=== PATIENT | male | born 1970 | race Hispanic/Latino ===

== ENCOUNTER 2018-11-06 06:38 | Inpatient (IN) | payer MEDICAID, OTHER ==
[2018-11-06 06:38] VITALS: BMI 34.4
[2018-11-06] MEDS ORDERED: Sodium Chloride 0.9% 1,000 ML IV STA (08:32)
[2018-11-06] MEDS ORDERED: Vancomycin 1 GM 1 GM/250 ML BAG IV STA (08:36)
[2018-11-06] MEDS ORDERED: Cefepime 1 GM in Sodium Chloride 0.9% 50 ML IVPB ONE (08:39)
[2018-11-06] MEDS ORDERED: Sodium Chloride 0.9% 1,000 ML ONE (09:01)
[2018-11-06] MEDS ORDERED: Vancomycin 1 GM 1 GM/250 ML BAG IVPB ONE (09:01)
--- NOTE | 2018-11-06 09:10 | C.PDOC ---
History Of Present Illness 48 y/o male,w/PMhx of endocarditis, presents to the ER complaining of bilateral leg pain and swelling. Patient states that he was recently diagnosed with endocarditis and he was admitted in [facility] [place] 6 [place]. At the time, patient had PICC line and he was treated with abx.After he was discharged, he went back to work. However, he notes that he continues to have pain so he decided to come to the ER. Of note, patient uses IV heroin and his last use was in the morning today. Denies having fever,chills,CP,SOB, nausea, and vomiting. Time Seen by Provider: 11/06/18 07:24 Chief Complaint (Nursing): Lower Extremity Problem/Injury History Per: Patient History/Exam Limitations: no limitations Onset/Duration Of Symptoms: Days Current Symptoms Are (Timing): Still Present Severity: Moderate Past Medical History Reviewed: Historical Data, Nursing Documentation, Vital Signs Vital Signs: Last Vital Signs Temp 99.7 F H 11/06/18 06:49 Pulse 100 H 11/06/18 06:49 Resp 20 11/06/18 06:49 BP 148/65 11/06/18 06:49 Pulse Ox 97 11/06/18 06:49 - Medical History PMH: No Chronic Diseases Other Surgeries: Hx of surgeries - [facility] Procedures INJECT/INFUSE NEC (11/14/14) Family History: States: No Known Family Hx - Social History Hx Tobacco Use: Yes Hx Alcohol Use: No Hx Substance Use: Yes (HEROIN, COCAINE : QUIT) - Immunization History Hx Tetanus Toxoid Vaccination: No Hx Influenza Vaccination: No Hx Pneumococcal Vaccination: No Review Of Systems Except As Marked, All Systems Reviewed And Found Negative. Constitutional: Negative for: Fever, Chills Cardiovascular: Negative for: Chest Pain Respiratory: Negative for: Shortness of Breath Gastrointestinal: Negative for: Nausea, Vomiting Musculoskeletal: Positive for: Leg Pain (bilateral leg pain and swelling) Neurological: Negative for: Weakness, Numbness Physical Exam - Physical Exam Appears: Non-toxic, No Acute Distress Skin: Normal Color, Warm, Dry Head: Atraumatic, Normacephalic Eye(s): bilateral: Normal Inspection Nose: Normal Oral Mucosa: Moist Neck: Supple Chest: Symmetrical Cardiovascular: Rhythm Regular Respiratory: Normal Breath Sounds, No Rales, No Rhonchi, No Wheezing Gastrointestinal/Abdominal: Soft, No Tenderness, No Guarding, No Rebound, Hernia (reducible right inguinal hernia) Extremity: Normal ROM, Other (bilateral lower extremity pitting edema) Neurological/Psych: Oriented x3, Normal Speech ED Course And Treatment - Laboratory Results Result Diagrams: 11/06/18 09:12 11/06/18 09:12 O2 Sat by Pulse Oximetry: 97 (RA) Pulse Ox Interpretation: Normal - Other Rad CXR X-Ray: Viewed By Me, Read By Radiologist Interpretation: Date of service: 11/06/2018. HISTORY: LE edema. COMPARISON: None available. FINDINGS: LUNGS: Suspect minor bibasilar atelectasis and or scarring changes. PLEURA: No significant pleural effusion identified, no pneumothorax apparent. CARDIOVASCULAR: No aortic atherosclerotic calcification present. Normal cardiac size. No pulmonary vascular congestion. OSSEOUS STRUCTURES: No significant abnormalities. VISUALIZED UPPER ABDOMEN: Normal. OTHER FINDINGS: None. IMPRESSION: Minor bibasilar atelectasis and or scarring changes. Progress Note: Labs, UA, and CXR ordered.Patient treated with Maxipime IV, Vancomcyin IV, and IV Fluids. Case was d/w who knows patient by treating him in [facility] [place]. She accepted patient to her service for an admission. Disposition - Disposition Disposition: HOSPITALIZED Disposition Time: 12:29 Condition: FAIR - Clinical Impression Clinical Impression: Endocarditis, ARF (acute renal failure), Drug abuse and dependence, Extremity edema - PA / [employer] / Resident Statement MD/DO has reviewed & agrees with the documentation as recorded. - Scribe Statement The provider has reviewed the documentation as recorded by the Gracy Cleveland Provider Attestation All medical record entries made by the Scribe were at my direction and personally dictated by me. I have reviewed the chart and agree that the record accurately reflects my personal performance of the history, physical exam, me dical decision making, and the department course for this patient. I have also personally directed, reviewed, and agree with the discharge instructions and disposition. Decision To Admit - Pt Status Changed To: Hospital Disposition Of: Inpatient - Admit Certification Admit to Inpatient:: After my assessment, the patient will require hospitalization for at least two midnights. This is because of the severity of symptoms shown, intensity of services needed, and/or the medical risk in this patient being treated as an outpatient. - InPatient: Physician Admission Certification: I certify that this patient requires 2 or more midnights of care for the following reason:: Patient will IVDA Endocarditis will neeed IV antibiotics for longer than 2 days. - . Bed Request Type: Regular Admitting Physician: Dorothy Ramos Patient Diagnosis: Endocarditis, ARF (acute renal failure), Drug abuse and dependence, Extremity edema
--- NOTE | 2018-11-06 09:14 | RAD ---
Date of service: 11/06/2018 HISTORY: LE edema COMPARISON: None available. FINDINGS: LUNGS: Suspect minor bibasilar atelectasis and or scarring changes. PLEURA: No significant pleural effusion identified, no pneumothorax apparent. CARDIOVASCULAR: No aortic atherosclerotic calcification present. Normal cardiac size. No pulmonary vascular congestion. OSSEOUS STRUCTURES: No significant abnormalities. VISUALIZED UPPER ABDOMEN: Normal. OTHER FINDINGS: None. IMPRESSION: Minor bibasilar atelectasis and or scarring changes.
[2018-11-06 09:26] LABS: BASO # 0.1 K/uL (0.0-0.2); BASO % 0.9 % (0.0-2.0); EOS % 0.4 % (0.0-4.0); LYMPH % 21.8 % (20.0-40.0); MEAN CELL VOLUME 82.4 fL (80.0-94.0); MEAN CORPUSCULAR HEMOGLOBIN 27.7 pg (27.0-31.0); MEAN CORPUSCULAR HGB CONC 33.6 g/dL (33.0-37.0); MEAN PLATELET VOLUME 7.4 fL (7.2-11.7); MONO # 0.5 K/uL (0.0-0.8); MONO % 5.4 % (0.0-10.0); NEUT # 6.5 K/uL (1.8-7.0); NEUT % 71.5 % (50.0-75.0); NRBC % 0.1 % (0.0-2.0); RBC 3.1 Mil/uL (4.40-5.90); RED CELL DISTRIBUTION WIDTH 13.9 % (11.5-14.5); WHITE BLOOD COUNT 9.1 K/uL (4.8-10.8)
[2018-11-06 09:29] LABS: HEMOGLOBIN 8.6 g/dL (12.0-18.0)
[2018-11-06] MEDS ORDERED: Cefepime 1 GM in Sodium Chloride 0.9% 100 ML IVPB ONE (09:30)
[2018-11-06 09:33] LABS: INR 1.4
[2018-11-06 09:35] LABS: SQUAMOUS EPITHIAL 5 /hpf (0-5); URINE BACTERIA OCC (<OCC); URINE BILIRUBIN 1+ (NEGATIVE); URINE BLOOD 2+ (NEGATIVE); URINE CLARITY Hazy (Clear); URINE COLOR Amber (YELLOW); URINE GLUCOSE (UA) NORMAL (Normal); URINE LEUKOCYTE ESTERASE NEG Leu/uL (Negative); URINE PROTEIN 2+ mg/dL (NEGATIVE); WBC CLUMPS FEW /hpf
[2018-11-06 09:37] LABS: ALB/GLOB RATIO 0.9 (1.0-2.1); ALBUMIN 3.2 g/dL (3.5-5.0); ALT/SGPT 42 U/L (21-72); AST/SGOT 82 U/L (17-59); BLOOD UREA NITROGEN 22 mg/dL (9-20); CALCIUM 9.6 mg/dl (8.6-10.4); GFR NON-AFRICAN AMERICAN 27
[2018-11-06 09:45] LABS: B-TYPE NATRIURETIC PEPTIDE 591 pg/mL (0-450)
[2018-11-06 09:46] LABS: BARBITURATES, UR NEGATIVE (NEGATIVE); PHENCYCLIDINE, UR NEGATIVE (NEGATIVE)
[2018-11-06 10:05] LABS: BENZODIAZEPINES, UR POSITIVE (NEGATIVE); OPIATES, UR POSITIVE (NEGATIVE)
[2018-11-06] MEDS: Magnesium Sulfate 1 gm in D5W 1 GM/100 ML BAG IVPB SCH ×4 (15:15→19:59)
[2018-11-06] MEDS: Sodium Chloride 0.9% 1,000 ML IV SCH (15:30)
[2018-11-06] MEDS: Cefepime IV 1 gm in Dextrose 1 GM/50 ML BAG IVPB SCH (23:30)
[2018-11-07] MEDS: Sodium Chloride 0.9% 1,000 ML IV SCH ×4 (02:05→22:31)
[2018-11-07 07:33] LABS: BASO # 0.1 K/uL (0.0-0.2); BASO % 0.7 % (0.0-2.0); EOS # 0.1 K/uL (0.0-0.7); EOS % 1.3 % (0.0-4.0); HEMOGLOBIN 8.5 g/dL (12.0-18.0); LYMPH # 1.6 K/uL (1.0-4.3); LYMPH % 24.6 % (20.0-40.0); MEAN CELL VOLUME 81.7 fL (80.0-94.0); MEAN CORPUSCULAR HEMOGLOBIN 28.4 pg (27.0-31.0); MEAN CORPUSCULAR HGB CONC 34.7 g/dL (33.0-37.0); MEAN PLATELET VOLUME 7.6 fL (7.2-11.7); MONO # 0.3 K/uL (0.0-0.8); MONO % 4.6 % (0.0-10.0); NEUT # 4.6 K/uL (1.8-7.0); NEUT % 68.8 % (50.0-75.0); RBC 2.98 Mil/uL (4.40-5.90); RED CELL DISTRIBUTION WIDTH 13.9 % (11.5-14.5); WHITE BLOOD COUNT 6.7 K/uL (4.8-10.8)
[2018-11-07 07:44] LABS: ALB/GLOB RATIO 0.8 (1.0-2.1); ALBUMIN 2.7 g/dL (3.5-5.0); ALT/SGPT 41 U/L (21-72); AST/SGOT 83 U/L (17-59); BLOOD UREA NITROGEN 24 mg/dL (9-20); CALCIUM 8.8 mg/dl (8.6-10.4); GFR NON-AFRICAN AMERICAN 54
[2018-11-07 08:12] LABS: HEPATITIS B SURFACE AG Negative (NEGATIVE)
[2018-11-07 08:17] LABS: HEPATITIS A IGM NEGATIVE (NEGATIVE); HEPATITIS B CORE AB NEGATIVE (NEGATIVE)
[2018-11-07 09:55] LABS: HEPATITIS C ANTIBODY REACTIVE (NEGATIVE)
--- NOTE | 2018-11-07 10:49 | CP.PCM.HP ---
History of Present Illness - History of Present Illness History of Present Illness: pt came in for fever pain body has endocarditis previous admision sign himself out using drugs heroin iv and snuff Present on Admission - Present on Admission Any Indicators Present on Admission: No Review of Systems - Review of Systems Systems not reviewed;Unavailable: Acuity of Condition - Constitutional Constitutional: Fever - EENT Eyes: As Per HPI Ears: As Per HPI Nose/Mouth/Throat: As Per HPI - Cardiovascular Cardiovascular: Dyspnea, Radiating Pain - Gastrointestinal Gastrointestinal: As Per HPI - Genitourinary Genitourinary: As Per HPI - Reproductive: Male Reproductive:Male: As Per HPI - Musculoskeletal Musculoskeletal: As Per HPI Additional comments: leg pain - Integumentary Integumentary: As Per HPI - Neurological Neurological: As Per HPI - Psychiatric Psychiatric: As Per HPI - Endocrine Endocrine: As Per HPI - Hematologic/Lymphatic Hematologic: As Per HPI Additional comments: has aneamia Past Patient History - Tetanus Immunizations Tetanus Immunization: Unknown - Past Medical History & Family History Past Medical History?: Yes - Past Social History Smoking Status: Heavy Smoker > 10 Cigarettes Daily - CARDIAC Other/Comment: Endocarditis - PULMONARY Hx Respiratory Disorders: No - NEUROLOGICAL Hx Neurological Disorder: No - HEENT Hx HEENT Problems: No - RENAL Hx Chronic Kidney Disease: No - ENDOCRINE/METABOLIC Hx Endocrine Disorders: No - HEMATOLOGICAL/ONCOLOGICAL Hx Blood Disorders: No - INTEGUMENTARY Hx Dermatological Problems: No - MUSCULOSKELETAL/RHEUMATOLOGICAL Hx Musculoskeletal Disorders: No Hx Falls: No - GASTROINTESTINAL Hx Gastrointestinal Disorders: No - GENITOURINARY/GYNECOLOGICAL Hx Genitourinary Disorders: No - PSYCHIATRIC Hx Substance Use: Yes (HEROIN, COCAINE : QUIT) - SURGICAL HISTORY Hx Surgeries: Yes Hx Orthopedic Surgery: Yes (R KNEE) - ANESTHESIA Hx Anesthesia: Yes Hx Anesthesia Reactions: No Meds Allergies/Adverse Reactions: Allergies Allergy/AdvReac Type Severity Reaction Status Date / Time No Known Allergies Allergy Verified 11/14/14 15:03 Physical Exam - Constitutional Appears: In Acute Distress - Head Exam Head Exam: ATRAUMATIC - Eye Exam Eye Exam: Normal appearance Pupil Exam: NORMAL ACCOMODATION - ENT Exam ENT Exam: Mucous Membranes Moist - Neck Exam Neck exam: Positive for: Full Rom - Respiratory Exam Respiratory Exam: Decreased Breath Sounds - Cardiovascular Exam Cardiovascular Exam: REGULAR RHYTHM - GI/Abdominal Exam GI & Abdominal Exam: Normal Bowel Sounds - Extremities Exam Extremities exam: Positive for: normal inspection - Back Exam Back exam: NORMAL INSPECTION - Neurological Exam Neurological exam: Alert, Normal Gait, Oriented x3 - Psychiatric Exam Psychiatric exam: Normal Affect - Skin Skin Exam: Pallor Results - Vital Signs Recent Vital Signs: Last Vital Signs Temp 99.5 F 11/07/18 07:00 Pulse 81 11/07/18 07:00 Resp 20 11/07/18 07:00 BP 161/94 H 11/07/18 07:00 Pulse Ox 97 11/07/18 07:00 - Labs Result Diagrams: 11/07/18 06:57 11/07/18 06:57 Labs: Laboratory Results - last 24 hr 11/07/18 11/07/18 11/07/18 06:57 06:57 06:57 WBC 6.7 RBC 2.98 L Hgb 8.5 L Hct 24.4 L MCV 81.7 MCH 28.4 MCHC 34.7 RDW 13.9 Plt Count 274 MPV 7.6 Neut % (Auto) 68.8 Lymph % (Auto) 24.6 [place] % (Auto) 4.6 Eos % (Auto) 1.3 Baso % (Auto) 0.7 Neut # (Auto) 4.6 Lymph # (Auto) 1.6 [place] # (Auto) 0.3 Eos # (Auto) 0.1 Baso # (Auto) 0.1 Sodium 137 Potassium 3.7 Chloride 106 Carbon Dioxide 24 Anion Gap 10 BUN 24 H Creatinine 1.4 Est GFR ( Amer) > 60 Est GFR (Non-Af Amer) 54 Random Glucose 95 Calcium 8.8 Magnesium 1.6 Total Bilirubin 0.3 AST 83 H ALT 41 Alkaline Phosphatase 85 Total Protein 6.1 L Albumin 2.7 L Globulin 3.4 Albumin/Globulin Ratio 0.8 L Hepatitis A IgM Ab Negative Hep Bs Antigen Negative Hep B Core IgM Ab Negative Hepatitis C Antibody Reactive HIV 1&2 Antibody Screen 11/07/18 06:57 WBC RBC Hgb Hct MCV MCH MCHC RDW Plt Count MPV Neut % (Auto) Lymph % (Auto) [place] % (Auto) Eos % (Auto) Baso % (Auto) Neut # (Auto) Lymph # (Auto) [place] # (Auto) Eos # (Auto) Baso # (Auto) Sodium Potassium Chloride Carbon Dioxide Anion Gap BUN Creatinine Est GFR ( Amer) Est GFR (Non-Af Amer) Random Glucose Calcium Magnesium Total Bilirubin AST ALT Alkaline Phosphatase Total Protein Albumin Globulin Albumin/Globulin Ratio Hepatitis A IgM Ab Hep Bs Antigen Hep B Core IgM Ab Hepatitis C Antibody HIV 1&2 Antibody Screen Negative Assessment & Plan - Assessment and Plan (Free Text) Assessment: fever endo carditis heroin addict aneamia Plan: consults and as ordered - Date & Time Date: 11/07/18 Time: 10:53
[2018-11-07] MEDS: Cefepime IV 1 gm in Dextrose 1 GM/50 ML BAG IVPB SCH ×2 (11:45→22:38)
[2018-11-07] MEDS ORDERED: guaiFENesin DM 200 mg-20 mg/10 ml UD PO PRN (12:41)
[2018-11-07] MEDS ORDERED: Aluminum Hydroxide/Magnesium Hydroxide Susp (30 mL) PO PRN (12:41)
--- NOTE | 2018-11-07 12:47 | PCM.PSYCH ---
Initial Psychiatric Evaluation - Initial Psychiatric Evaluation Type of Admission: Voluntary Legal Status: Capacity Chief Complaint (in patient's own words): I relapsed on heroin.' History of Present Illness and Precipitating Events: Patient is a 48 y/o male,w/PMhx of endocarditis, presents to the ER complaining of bilateral leg pain and swelling. Patient states that he was recently diagnosed with endocarditis and he was admitted in [facility] [place] for 6 weeks. Today patient was consulted by psychiatry. Patient reports a long history of abusing heroin, cocaine and marijuana. He reports of abusing 1-2 bundles of heroin daily along with some marijuana. He denies any past history of any inpatient psychiatric hospitalizations and denies any history of follow-up with a psychiatrist. He denies any history of detox in the past. Patient reports that yesterday he abused more than 10 bags of heroin, he started having withdrawal symptoms and developed swelling of the leg so he came to the hospital to get help. He reports withdrawal symptoms of heroine including nausea, vomiting, shakes, abdominal cramps, joint pains and sweating. He reports irritability but he denies any feelings of hopelessness or helplessness. He denies any suicidal ideation or any homicidal ideation. He denies any auditory hallucinations or any paranoia. Current Medications: Active Medications Generic Name Dose Route Start Last Admin Trade Name Freq PRN Reason Stop Dose Admin Acetaminophen 650 mg 11/07/18 12:41 Tylenol 325mg Tab PO Q4H PRN Fever greater than 101 F Al Hydrox/Mg Hydrox/Simethicone 30 ml 11/07/18 12:41 Maalox 30 Ml PO TID PRN Indigestion / Heartburn Dicyclomine HCl 10 mg 11/07/18 12:41 Bentyl PO Q6 PRN Muscle spasm Diphenhydramine HCl 25 mg 11/06/18 15:01 11/07/18 11:20 Benadryl PO 25 mg Q6 PRN Administration Agitation Guaifenesin/Dextromethorphan 10 ml 11/07/18 12:41 Robitussin Dm PO Q4H PRN Cough and congestion Heparin Sodium (Porcine) 5,000 units 11/07/18 10:00 11/07/18 11:21 Heparin SC 5,000 units Q12 MARJAN Administration Sodium Chloride 1,000 mls @ 100 mls/hr 11/06/18 15:00 11/07/18 11:21 Sodium Chloride 0.9% IV 100 mls/hr .Q10H MARJAN Administration Cefepime HCl 1 gm in 50 mls @ 100 mls/hr 11/06/18 23:00 11/07/18 11:45 Maxipime Iv 1 Gm Premix IVPB 100 mls/hr Q12H MARJAN Administration Protocol Vancomycin HCl 1 gm/ Sodium 250 mls @ 166.7 mls/hr 11/06/18 23:00 11/07/18 00:00 Chloride IVPB 166.7 mls/hr Q24H MARJAN Administration Protocol Ibuprofen 600 mg 11/07/18 12:41 Motrin Tab PO Q6 PRN Pain, moderate (4-7) Influenza Virus Vaccine 60 mcg 11/09/18 10:00 Flucelvax Quad 0297-0394 Syr IM 11/09/18 10:01 .ONCE ONE Loperamide HCl 2 mg 11/07/18 12:41 Imodium PO Q8 PRN Diarrhea Methadone HCl 0 mg 11/08/18 10:00 Methadone PO 11/11/18 09:59 Q24H MARJAN Taper Ondansetron HCl 4 mg 11/07/18 12:41 Zofran Tab PO Q8 PRN Nausea/Vomiting Pseudoephedrine HCl 60 mg 11/07/18 12:41 Sudafed Tab PO QID PRN Nasal/Sinus Congestion Past Psychiatric History - Past Psychiatric History Previous Treatment History: Inpatient Pertinent Medical Hx (Current Medical&Sleep Prob, Allergies): Allergies Allergy/AdvReac Type Severity Reaction Status Date / Time No Known Allergies Allergy Verified 11/14/14 15:03 No Known Home Med 11/06/18 Review of Systems - Review of Systems All systems: reviewed and no additional remarkable complaints except - Psychiatric Psychiatric: Anxiety, Irritability. absent: Suicidal Ideation Mental Status Examination - Personal Presentation Personal Presentation: Looks stated age - Affect Affect: Constricted - Motor Activity Motor Activity: Calm - Reliability in Providing Information Reliability in Providing Information: Fair - Speech Speech: Organized - Mood Mood: Anxious - Formal Thought Process Formal Thought Process: No Impairment - Obsessions/Compulsions Obsessions: No Compulsions: No - Cognitive Functions Orientation: Person, Place, Situation, Time Sensorium: Alert Attention/Concentration: Attentive Abstract Thinking: [place] Estimate of Intelligence: Below average Judgement: Imparied, as evidence by: Poor judgement, Imparied, as evidence by: Lack of insight into illness - Risk Risk: Withdrawal, Diminished functioning - Limitations Limitations: Living alone DSM 5 DX - DSM 5 DSM 5 Diagnosis: Opioid use disorder severe Opioid withdrawal - Recommended/Plan of Treatment Treatment Recommendations and Plan of Treatment: Supportive therapy Methadone taper Withdrawal medications including loperamide/Zofran/hydroxyzine Neurontin for augmentation Trazodone for insomnia Patient psychiatrically stable and cleared.
--- NOTE | 2018-11-07 15:33 | VASCLAB ---
Date of service: 11/07/2018 PROCEDURE: Lower Extremity Venous Duplex Exam. HISTORY: Leg swelling PRIORS: None. TECHNIQUE: Bilateral common femoral, femoral, popliteal and posterior tibial, peroneal and great saphenous veins were evaluated. Flow was assessed with color Doppler, compressibility, assessment of phasic flow and augmentation response. Report prepared by Joe Weeks, [place], RVT FINDINGS: RIGHT: 1. Common Femoral Vein: 1.1. Compressibility - Fully compressible: Thrombus - None : Flow - Phasic: Augmentation -Normal: Reflux - None. 2. Femoral Vein: 2.1. Compressibility - Fully compressible: Thrombus - None : Flow - Phasic: Augmentation -Normal: Reflux - None. 3. Popliteal Vein: 3.1. Compressibility - Fully compressible: Thrombus - None : Flow - Phasic: Augmentation -Normal: Reflux - None. 4. Posterior Tibial Vein: 4.1. Compressibility - Fully compressible: Thrombus - None: Flow - Phasic: Augmentation -Normal: Reflux - None. 5. Peroneal Vein: 5.1. Compressibility - Fully compressible: Thrombus - None: Flow - Phasic: Augmentation -Normal: Reflux - None. 6. Great Saphenous Vein: 6.1. Compressibility - Fully compressible: Thrombus - None: Flow - Phasic: Augmentation - Normal: Reflux - None. LEFT: 1. Common Femoral Vein: 1.1. Compressibility - Fully compressible: Thrombus - None: Flow - Phasic: Augmentation -Normal: Reflux - None. 2. Femoral Vein: 2.1. Compressibility - Fully compressible: Thrombus - None: Flow - Phasic: Augmentation -Normal: Reflux - None. 3. Popliteal Vein: 3.1. Compressibility - Fully compressible: Thrombus - None : Flow - Phasic: Augmentation -Normal: Reflux - None. 4. Posterior Tibial Vein: 4.1. Compressibility - Fully compressible: Thrombus - None: Flow - Phasic: Augmentation -Normal: Reflux - None. 5. Peroneal Vein: 5.1. Compressibility - Fully compressible: Thrombus - None: Flow - Phasic: Augmentation -Normal: Reflux - None. 6. Great Saphenous Vein: 6.1. Compressibility - Fully compressible: Thrombus - None: Flow - Phasic: Augmentation - Normal: Reflux - None. OTHER FINDINGS: Right: None significant. Left: None significant. IMPRESSION: Right: No evidence of deep or superficial vein thrombosis of the right lower extremity. Normal valve function noted of the right side. Left: No evidence of deep or superficial vein thrombosis of the left lower extremity. Normal valve function noted of the left side.
--- NOTE | 2018-11-07 17:54 | CARD ---
APPROVED REPORT Date of service: 11/07/2018 EXAM: Two-dimensional and M-mode echocardiogram with Doppler and color Doppler. Other Information Quality : GoodRhythm : INDICATION endocarditis, leg edema, fever 2D DIMENSIONS IVSd0.9 (0.7-1.1cm)LVDd5.1 (3.9-5.9cm) PWd0.9 (0.7-1.1cm)LA Csjmjn03 (18-58mL) LVDs3.4 (2.5-4.0cm)FS (%) 32.0 % LVEF (%)59.9 (>50%)LVEF (Christie's)59.14 % M-Mode DIMENSIONS Left Atrium (MM)3.91 (2.5-4.0cm)IVSd1.11 (0.7-1.1cm) Aortic Root3.90 (2.2-3.7cm)LVDd6.68 (4.0-5.6cm) Aortic Cusp Exc.2.37 (1.5-2.0cm)PWd0.77 (0.7-1.1cm) FS (%) 42 %LVDs3.85 (2.0-3.8cm) LVEF (%)72 (>50%) Mitral Valve MV E Bkxpgpjr23.8cm/sMV A Lwlcxsdb41.6cm/sE/A ratio1.2 TDI Lateral E' Peak V13.60cm/sMedial E' Peak V8.25cm/sE/Lateral E'6.8 E/Medial E'11.2 Tricuspid Valve TR Peak Lxtjcetb263uq/sTR Peak Gr.[id number] LEFT VENTRICLE The left ventricle is normal size. There is normal left ventricular wall thickness. The left ventricular function is normal. The left ventricular ejection fraction is within the normal range. 59% No regional wall motion abnormalities noted. The left ventricular diastolic function is normal. No left ventricle thrombus noted on this study. There is no ventricular septal defect visualized. There is no left ventricular aneurysm. There is no mass noted in the left ventricle. RIGHT VENTRICLE The right ventricle is normal size. There is normal right ventricular wall thickness. The right ventricular systolic function is normal. ATRIA The left atriql volume index is moderately increased. The right atrium size is normal. The interatrial septum is intact with no evidence for an atrial septal defect. AORTIC VALVE The aortic valve is normal in structure and function. Mild aortic regurgitation is present. There is no aortic valvular stenosis. There is no aortic valvular vegetation. MITRAL VALVE The mitral valve is normal in structure and function. There is no evidence of mitral valve prolapse. There is no mitral valve stenosis. There is no mitral valve regurgitation noted. TRICUSPID VALVE The tricuspid valve is normal in structure and function. There is mild tricuspid valve regurgitation noted. Estimated PA systolic pressure is 51 mm Hg. A long thin tricuspid valve vegetation is noted in the right atrium attached to either the anterior or posterior leaflet (cannot tell in 4 chamber plane only, not seen in high parasternal view due to poor quality view). There is no tricuspid valve stenosis. PULMONIC VALVE The pulmonary valve is normal in structure and function. There is no pulmonic valvular regurgitation. There is no pulmonic valvular stenosis. GREAT VESSELS The aortic root is normal in size. The ascending aorta is upper normal in size. 3.7 cm. The pulmonary artery is normal. The IVC is dialted and collapses <50% with inspiration. PERICARDIAL EFFUSION A very trivial inferior pericardial effusion is noted. There is no pleural effusion. <Conclusion> The left ventricular function is normal. The left atriql volume index is moderately increased. Mild aortic regurgitation is present. Long tricuspid valve vegetation noted in the right atrum. Moderate pulmonary HTN.
--- NOTE | 2018-11-07 18:03 | CP.PCM.CON ---
History of Present Illness - History of Present Illness History of Present Illness: 48 y/o male,w/PMhx of endocarditis, presents to the ER complaining of bilateral leg pain and swelling. Patient states that he was recently diagnosed with endocarditis and [place] [facility] [place] Despite this, he continues to have pain so he decided to come to the ER. Patient uses IV heroin and his last use was on the day of admission Cultures were sent IV antibiotics ordered Past Patient History - Tetanus Immunizations Tetanus Immunization: Unknown - Past Medical History & Family History Past Medical History?: Yes - Past Social History Smoking Status: Heavy Smoker > 10 Cigarettes Daily - CARDIAC Other/Comment: Endocarditis - PULMONARY Hx Respiratory Disorders: No - NEUROLOGICAL Hx Neurological Disorder: No - HEENT Hx HEENT Problems: No - RENAL Hx Chronic Kidney Disease: No - ENDOCRINE/METABOLIC Hx Endocrine Disorders: No - HEMATOLOGICAL/ONCOLOGICAL Hx Blood Disorders: No - INTEGUMENTARY Hx Dermatological Problems: No - MUSCULOSKELETAL/RHEUMATOLOGICAL Hx Musculoskeletal Disorders: No Hx Falls: No - GASTROINTESTINAL Hx Gastrointestinal Disorders: No - GENITOURINARY/GYNECOLOGICAL Hx Genitourinary Disorders: No - PSYCHIATRIC Hx Substance Use: Yes (HEROIN, COCAINE : QUIT) - SURGICAL HISTORY Hx Surgeries: Yes Hx Orthopedic Surgery: Yes (R KNEE) - ANESTHESIA Hx Anesthesia: Yes Hx Anesthesia Reactions: No Meds Allergies/Adverse Reactions: Allergies Allergy/AdvReac Type Severity Reaction Status Date / Time No Known Allergies Allergy Verified 11/14/14 15:03 - Medications Medications: Current Medications Diphenhydramine HCl (Benadryl) 25 mg PO Q6 PRN PRN Reason: Agitation Heparin Sodium (Porcine) (Heparin) 5,000 units SC Q12 [facility] Sodium Chloride (Sodium Chloride 0.9%) 1,000 mls @ 100 mls/hr IV .Q10H [facility] Last Admin: 11/06/18 15:30 Dose: 100 mls/hr Influenza Virus Vaccine (Flucelvax Quad [id number] Syr) 60 mcg IM .ONCE ONE Stop: 11/09/18 10:01 Results - Vital Signs Recent Vital Signs: Last Vital Signs Temp 98.4 F 11/06/18 16:00 Pulse 73 11/06/18 16:00 Resp 20 11/06/18 16:00 BP 120/74 11/06/18 16:00 Pulse Ox 97 11/06/18 19:16 - Labs Result Diagrams: 11/06/18 09:12 11/06/18 09:12 Labs: Laboratory Results - last 24 hr 11/06/18 11/06/18 11/06/18 09:12 09:12 09:12 WBC 9.1 RBC 3.10 L Hgb 8.6 L D Hct 25.6 L MCV 82.4 MCH 27.7 MCHC 33.6 RDW 13.9 Plt Count 317 MPV 7.4 Neut % (Auto) 71.5 Lymph % (Auto) 21.8 Bureau % (Auto) 5.4 Eos % (Auto) 0.4 Baso % (Auto) 0.9 Neut # (Auto) 6.5 Lymph # (Auto) 2.0 Bureau # (Auto) 0.5 Eos # (Auto) 0.0 Baso # (Auto) 0.1 PT 15.0 H INR 1.4 APTT 35 H Sodium Potassium Chloride Carbon Dioxide Anion Gap BUN Creatinine Est GFR ( Amer) Est GFR (Non-Af Amer) Random Glucose Calcium Magnesium Total Bilirubin AST ALT Alkaline Phosphatase NT-Pro-B Natriuret Pep Total Protein Albumin Globulin Albumin/Globulin Ratio Urine Color Rebecca Urine Clarity Hazy Urine pH 5.0 Ur Specific [place] 1.023 Urine Protein 2+ H Urine Glucose (UA) Normal Urine Ketones Negative Urine Blood 2+ H Urine Nitrate Negative Urine Bilirubin 1+ H Urine Urobilinogen 4.0 Ur Leukocyte Esterase Neg Urine WBC (Auto) 25 H Urine RBC (Auto) 27 H Urine WBC Clumps (Auto) Few H Ur Squamous Epith Cells 5 Urine Bacteria Occ H Urine Opiates Screen Urine Methadone Screen Ur Barbiturates Screen Ur Phencyclidine Scrn Ur Amphetamines Screen U Benzodiazepines Scrn U Oth Cocaine Metabols U Cannabinoids Screen Alcohol, Quantitative 11/06/18 11/06/18 09:12 09:12 WBC RBC Hgb Hct MCV MCH MCHC RDW Plt Count MPV Neut % (Auto) Lymph % (Auto) Bureau % (Auto) Eos % (Auto) Baso % (Auto) Neut # (Auto) Lymph # (Auto) Bureau # (Auto) Eos # (Auto) Baso # (Auto) PT INR APTT Sodium 137 Potassium 4.0 Chloride 108 H Carbon Dioxide 23 Anion Gap 10 BUN 22 H Creatinine 2.6 H Est GFR ( Amer) 32 Est GFR (Non-Af Amer) 27 Random Glucose 103 Calcium 9.6 Magnesium 1.5 L Total Bilirubin 0.6 AST 82 H ALT 42 Alkaline Phosphatase 79 NT-Pro-B Natriuret Pep 591 H Total Protein 6.8 Albumin 3.2 L Globulin 3.7 Albumin/Globulin Ratio 0.9 L Urine Color Urine Clarity Urine pH Ur Specific [place] Urine Protein Urine Glucose (UA) Urine Ketones Urine Blood Urine Nitrate Urine Bilirubin Urine Urobilinogen Ur Leukocyte Esterase Urine WBC (Auto) Urine RBC (Auto) Urine WBC Clumps (Auto) Ur Squamous Epith Cells Urine Bacteria Urine Opiates Screen Positive H Urine Methadone Screen Positive H Ur Barbiturates Screen Negative Ur Phencyclidine Scrn Negative Ur Amphetamines Screen Negative U Benzodiazepines Scrn Positive U Oth Cocaine Metabols Negative U Cannabinoids Screen Positive H Alcohol, Quantitative < 10
--- NOTE | 2018-11-07 18:04 | CP.PCM.CON ---
History of Present Illness - History of Present Illness History of Present Illness: 48 y/o male,w/PMhx of endocarditis, presents to the ER complaining of bilateral leg pain and swelling. Patient states that he was recently diagnosed with endocarditis and he was [place] in [facility] [facility] [place]. Despite this, he continues to have pain so he decided to come to the ER. Patient uses IV heroin and his last use was on the day of admission Cultures were sent IV antibiotics ordered JUDY + for tricuspid vegetation Review of Systems - Review of Systems All systems: reviewed and no additional remarkable complaints except - Constitutional Constitutional: As Per HPI - EENT Eyes: absent: As Per HPI, Blind Spots, Blurred Vision, Change in Vision, Decreased Night Vision, Diplopia, Discharge, Dry Eye, Exophthalmos, Floaters, Irritation, Itchy Eyes, Loss of Peripheral Vision, Pain, Photophobia, Requires Corrective Lenses, Sees Flashes, Spots in Vision, Tunnel Vision, Other Visual Disturbances, Loss of Vision, Other Ears: absent: As Per HPI, Decreased Hearing, Ear Discharge, Ear Pain, Tinnitus, Abnormal Hearing, Disequilibrium, Dizziness, Other Nose/Mouth/Throat: absent: As Per HPI, Epistaxis, Nasal Congestion, Nasal Discharge, Nasal Obstruction, Nasal Trauma, Nose Pain, Post Nasal Drip, Sinus Pain, Sinus Pressure, Bleeding Gums, Change in Voice, Dental Pain, Dry Mouth, Dysphagia, Halitosis, Hoarsness, Lip Swelling, Mouth Lesions, Mouth Pain, Odynophagia, Sore Throat, Throat Swelling, Tongue Swelling, Facial Pain, Neck Pain, Neck Mass, Other - Cardiovascular Cardiovascular: As Per HPI - Respiratory Respiratory: As Per HPI, Cough. absent: Hemoptysis - Gastrointestinal Gastrointestinal: absent: As Per HPI, Abdominal Pain, Belching, Bloating, Change in Bowel Habits, Change in Stool Character, Coffee Ground Emesis, Constipation, Cramping, Diarrhea, Dyspepsia, Dysphagia, Early Satiety, Excessive Flatus, Fecal Incontinence, Heartburn, Hematemesis, Hematochezia, Loose Stools, Melena, Nausea , Odynophagia, Temesmus, Vomiting, Other - Genitourinary Genitourinary: absent: As Per HPI, Change in Urinary Stream, Difficulty Urinating, Dysuria, Flank Pain, Hematuria, Pyuria, Nocturia, Urinary Incontinence, Urinary Frequency, Urinary Hesitance, Urinary Urgency, Voiding Freq/Small Amts, Freq UTI, Hx Renal/Bladder Calculi, Hx /Renal Surgery, Bladder Distension, Other - Musculoskeletal Musculoskeletal: As Per HPI - Integumentary Integumentary: absent: As Per HPI, Acne, Alopecia, Bleeding Lesions, Change in Hair, Change in Nails, Change in Pigmentation, Changing Lesions, Dry Skin, Erythema, Furuncle, Hirsutism, Lesions, New Lesions, Non-Healing Lesions, Photosensitivity, Pruritus, Rash, Skin Pain, Skin Ulcer, Sores, Striae, Swelling, Unusual Bruising, Wounds, Jaundice, Other - Neurological Neurological: absent: As Per HPI, Abnormal Gait, Abnormal Hearing, Abnormal Movements, Abnormal Speech, Behavioral Changes, Burning Sensations, Confusion, Convulsions, Disequilibrium, Dizziness, Numbness, Focal Weakness, Frequent Falls, Headaches, Lack of Coordination, Loss of Vision, Memory Loss, Paresthesias, Radicular Pain, Restless Legs, Sensory Deficit, Syncope, Tingling, Tremor, Vertigo, Weakness, Other Visual Disturbances, Other - Psychiatric Psychiatric: absent: As Per HPI, Abnormal Sleep Pattern, Anhedonia, Anxiety, Auditory Hallucinations, Behavioral Changes, Change in Appetite, Change in Libido, Confusion, Depression, Difficulty Concentrating, Hallucinations, Homicidal Ideation, Hopelessness, Irritability, Memory Loss, Mood Swings, Panic Attacks, Paranoia, Suicidal Ideation, Visual Hallucinations, Tactile Hallucinations, Other - Endocrine Endocrine: absent: As Per HPI, Change in Body Appearance, Change in Libido, Cold Intolorance, Deepening of Voice, Excessive Sweating, Fatigue, Flushing, Heat Intolorance, Increase in Ring/Shoe/Hat Size, Palpitations, Polydipsia, Polyphagia, Polyuria, Other - Hematologic/Lymphatic Hematologic: absent: As Per HPI, Easy Bleeding, Easy Bruising, Lymphadenopathy, Other Past Patient History - Tetanus Immunizations Tetanus Immunization: Unknown - Past Medical History & Family History Past Medical History?: Yes - Past Social History Smoking Status: Heavy Smoker > 10 Cigarettes Daily - CARDIAC Other/Comment: Endocarditis - PULMONARY Hx Respiratory Disorders: No - NEUROLOGICAL Hx Neurological Disorder: No - HEENT Hx HEENT Problems: No - RENAL Hx Chronic Kidney Disease: No - ENDOCRINE/METABOLIC Hx Endocrine Disorders: No - HEMATOLOGICAL/ONCOLOGICAL Hx Blood Disorders: No - INTEGUMENTARY Hx Dermatological Problems: No - MUSCULOSKELETAL/RHEUMATOLOGICAL Hx Musculoskeletal Disorders: No Hx Falls: No - GASTROINTESTINAL Hx Gastrointestinal Disorders: No - GENITOURINARY/GYNECOLOGICAL Hx Genitourinary Disorders: No - PSYCHIATRIC Hx Substance Use: Yes (HEROIN, COCAINE : QUIT) - SURGICAL HISTORY Hx Surgeries: Yes Hx Orthopedic Surgery: Yes (R KNEE) - ANESTHESIA Hx Anesthesia: Yes Hx Anesthesia Reactions: No Meds Allergies/Adverse Reactions: Allergies Allergy/AdvReac Type Severity Reaction Status Date / Time No Known Allergies Allergy Verified 11/14/14 15:03 - Medications Medications: Current Medications Acetaminophen (Tylenol 325mg Tab) 650 mg PO Q4H PRN PRN Reason: Fever greater than 101 F Al Hydrox/Mg Hydrox/Simethicone (Maalox 30 Ml) 30 ml PO TID PRN PRN Reason: Indigestion / Heartburn Dicyclomine HCl (Bentyl) 10 mg PO Q6 PRN PRN Reason: Muscle spasm Diphenhydramine HCl (Benadryl) 25 mg PO Q6 PRN PRN Reason: Agitation Last Admin: 11/07/18 11:20 Dose: 25 mg Guaifenesin/Dextromethorphan (Robitussin Dm) 10 ml PO Q4H PRN PRN Reason: Cough and congestion Heparin Sodium (Porcine) (Heparin) 5,000 units SC Q12 [facility] Last Admin: 11/07/18 11:21 Dose: 5,000 units Sodium Chloride (Sodium Chloride 0.9%) 1,000 mls @ 100 mls/hr IV .Q10H [facility] Last Admin: 11/07/18 11:21 Dose: 100 mls/hr Cefepime HCl (Maxipime Iv 1 Gm Premix) 1 gm in 50 mls @ 100 mls/hr IVPB Q12H [facility]; Protocol Last Admin: 11/07/18 11:45 Dose: 100 mls/hr Vancomycin HCl 1 gm/ Sodium (Chloride) 250 mls @ 166.7 mls/hr IVPB Q24H [facility]; Protocol Last Admin: 11/07/18 00:00 Dose: 166.7 mls/hr Ibuprofen (Motrin Tab) 600 mg PO Q6 PRN PRN Reason: Pain, moderate (4-7) Influenza Virus Vaccine (Flucelvax Quad [id number] Syr) 60 mcg IM .ONCE ONE Stop: 11/09/18 10:01 Loperamide HCl (Imodium) 2 mg PO Q8 PRN PRN Reason: Diarrhea Methadone HCl (Methadone) 15 mg PO Q24H [facility]; Taper Stop: 11/11/18 09:59 Ondansetron HCl (Zofran Tab) 4 mg PO Q8 PRN PRN Reason: Nausea/Vomiting Pseudoephedrine HCl (Sudafed Tab) 60 mg PO QID PRN PRN Reason: Nasal/Sinus Congestion Physical Exam - Constitutional Appears: Non-toxic, No Acute Distress, Chronically Ill - Head Exam Head Exam: NORMOCEPHALIC - Eye Exam Eye Exam: absent: Scleral icterus - ENT Exam ENT Exam: Mucous Membranes Dry, Normal External Ear Exam - Neck Exam Neck exam: Negative for: Lymphadenopathy - Respiratory Exam Respiratory Exam: Decreased Breath Sounds, Prolonged Expiratory Phase, Rhonchi - Cardiovascular Exam Cardiovascular Exam: REGULAR RHYTHM, +S1, +S2 - GI/Abdominal Exam GI & Abdominal Exam: Diminished Bowel Sounds, Soft. absent: Tenderness - Rectal Exam Rectal Exam: Deferred - Exam Exam: NORMAL INSPECTION - Extremities Exam Extremities exam: Positive for: pedal edema, tenderness, pedal pulses present. Negative for: calf tenderness - Back Exam Back exam: NORMAL INSPECTION. absent: CVA tenderness (L), CVA tenderness (R), paraspinal tenderness - Neurological Exam Neurological exam: Alert, CN II-XII Intact, Oriented x3, Reflexes Normal - Psychiatric Exam Psychiatric exam: Depressed - Skin Skin Exam: Dry Results - Vital Signs Recent Vital Signs: Last Vital Signs Temp 97.9 F 11/07/18 15:51 Pulse 65 11/07/18 15:51 Resp 20 11/07/18 15:51 BP 152/92 H 11/07/18 15:51 Pulse Ox 98 11/07/18 15:51 - Labs Result Diagrams: 11/08/18 06:45 11/07/18 06:57 Labs: Laboratory Results - last 24 hr 11/07/18 11/07/18 11/07/18 06:57 06:57 06:57 WBC 6.7 RBC 2.98 L Hgb 8.5 L Hct 24.4 L MCV 81.7 MCH 28.4 MCHC 34.7 RDW 13.9 Plt Count 274 MPV 7.6 Neut % (Auto) 68.8 Lymph % (Auto) 24.6 Lake % (Auto) 4.6 Eos % (Auto) 1.3 Baso % (Auto) 0.7 Neut # (Auto) 4.6 Lymph # (Auto) 1.6 Lake # (Auto) 0.3 Eos # (Auto) 0.1 Baso # (Auto) 0.1 Sodium 137 Potassium 3.7 Chloride 106 Carbon Dioxide 24 Anion Gap 10 BUN 24 H Creatinine 1.4 Est GFR ( Amer) > 60 Est GFR (Non-Af Amer) 54 Random Glucose 95 Calcium 8.8 Magnesium 1.6 Total Bilirubin 0.3 AST 83 H ALT 41 Alkaline Phosphatase 85 Total Protein 6.1 L Albumin 2.7 L Globulin 3.4 Albumin/Globulin Ratio 0.8 L Hepatitis A IgM Ab Negative Hep Bs Antigen Negative Hep B Core IgM Ab Negative Hepatitis C Antibody Reactive HIV 1&2 Antibody Screen 11/07/18 06:57 WBC RBC Hgb Hct MCV MCH MCHC RDW Plt Count MPV Neut % (Auto) Lymph % (Auto) Lake % (Auto) Eos % (Auto) Baso % (Auto) Neut # (Auto) Lymph # (Auto) Lake # (Auto) Eos # (Auto) Baso # (Auto) Sodium Potassium Chloride Carbon Dioxide Anion Gap BUN Creatinine Est GFR ( Amer) Est GFR (Non-Af Amer) Random Glucose Calcium Magnesium Total Bilirubin AST ALT Alkaline Phosphatase Total Protein Albumin Globulin Albumin/Globulin Ratio Hepatitis A IgM Ab Hep Bs Antigen Hep B Core IgM Ab Hepatitis C Antibody HIV 1&2 Antibody Screen Negative Assessment & Plan (1) ARF (acute renal failure) Status: Acute (2) Drug abuse and dependence Status: Acute (3) Endocarditis Status: Acute (4) Extremity edema Status: Acute (5) Cellulitis Status: Acute - Assessment and Plan (Free Text) Assessment: cont empiric IV rx for endocarditis tricuspid valve await cultures cardio re-eval prognosis guarded
[2018-11-08 06:54] LABS: HEMOGLOBIN 8.9 g/dL (12.0-18.0); MEAN CELL VOLUME 81.6 fL (80.0-94.0); MEAN CORPUSCULAR HEMOGLOBIN 27.6 pg (27.0-31.0); MEAN CORPUSCULAR HGB CONC 33.8 g/dL (33.0-37.0); MEAN PLATELET VOLUME 7.4 fL (7.2-11.7); RBC 3.21 Mil/uL (4.40-5.90); RED CELL DISTRIBUTION WIDTH 13.9 % (11.5-14.5); WHITE BLOOD COUNT 5.3 K/uL (4.8-10.8)
[2018-11-08] MEDS: Sodium Chloride 0.9% 1,000 ML IV SCH ×2 (08:00→17:00)
[2018-11-08] MEDS: Cefepime IV 1 gm in Dextrose 1 GM/50 ML BAG IVPB SCH ×3 (11:12→22:19)
--- NOTE | 2018-11-08 13:32 | CT ---
Date of service: 11/08/2018 PROCEDURE: CT Lumbar Spine without contrast HISTORY: Back pain, leg swelling history of endocarditis. COMPARISON: None available. TECHNIQUE: Axial computed tomography images were obtained of the lumbar spine without the use of intravenous contrast. Coronal and sagittal reformatted images were created and reviewed. Radiation dose: Total exam DLP = 1679.78 mGy-cm. This CT exam was performed using one or more of the following dose reduction techniques: Automated exposure control, adjustment of the mA and/or kV according to patient size, and/or use of iterative reconstruction technique. FINDINGS: VERTEBRAE: Apart from what is felt to represent a small chronic appearing Schmorl's node along the T12-L1, latter larger than former. Vertebral bodies otherwise exhibit normal stature with no acute compression fractures nor retropulsed fragments.. DISCS/SPINAL CANAL/NEURAL FORAMINA: L1-2: Unremarkable. There is a small osteophytic ridge which is most pronounced along the proximal aspect of the left foramen. No disc herniation nor significant canal compromise. The left exit foramen is marginal to adequate. Right exit foramen adequate. L3-4: There is mild posterior disc space narrowing with no disc herniation or significant disc bulge. Central canal and exit foramina appear adequate L4-5: Mild posterior disc space narrowing with small broad-based disc ridge complex which extends slightly into the proximal inferior margins of both exit foramina. Disc results in mild flattening of the ventral surface of the thecal sac however the overall central bony canal appears adequate.. Facets are slightly overgrown. Proximal exit foramina are marginal to minimally narrowed on the left and marginal to right L5-S1: There is a small broad-based bulge of the posterior annulus with a more localized right parasagittal protrusion component that compresses the ventral surface of the traversing/descending proximal S1 nerve root.. Disc bulging extends slightly into the proximal inferior margins of both exit foramina. Facets are slightly overgrown at this level. Proximal left exit foramen is mildly narrowed. Right exit foramen appears adequate. PARASPINAL SOFT TISSUES: Unremarkable. OTHER FINDINGS: There is small amount of pelvic ascites.. Wall thickening of the urinary bladder likely due to incomplete distention and muscular hypertrophy however correlation with urinalysis recommended to exclude cystitis. The spleen is incompletely visualized although is enlarged. Small right-sided effusion and trace left-sided effusion. IMPRESSION: No acute fractures. Minor multilevel degenerative spondylosis as above. Small chronic appearing Schmorl's node seen at the T12-L1 endplate levels Splenomegaly. Small amount of pelvic ascites. Small right-sided effusion and suspected trace left effusion.
--- NOTE | 2018-11-08 17:57 | CP.PCM.PN ---
Subjective - Date & Time of Evaluation Date of Evaluation: 11/08/18 Time of Evaluation: 09:00 - Subjective Subjective: seen on rounds IV rx renewed Objective - Vital Signs/Intake and Output Vital Signs (last 24 hours): Temp Pulse Resp BP Pulse Ox 98.2 F 67 20 154/94 H 99 11/08/18 16:00 11/08/18 16:00 11/08/18 16:00 11/08/18 16:00 11/08/18 16:00 Intake and Output: 11/08/18 11/08/18 06:59 18:59 Intake Total 1300 1800 Balance 1300 1800 - Medications Medications: Current Medications Acetaminophen (Tylenol 325mg Tab) 650 mg PO Q4H PRN PRN Reason: Fever greater than 101 F Al Hydrox/Mg Hydrox/Simethicone (Maalox 30 Ml) 30 ml PO TID PRN PRN Reason: Indigestion / Heartburn Dicyclomine HCl (Bentyl) 10 mg PO Q6 PRN PRN Reason: Muscle spasm Diphenhydramine HCl (Benadryl) 25 mg PO Q6 PRN PRN Reason: Agitation Last Admin: 11/07/18 11:20 Dose: 25 mg Guaifenesin/Dextromethorphan (Robitussin Dm) 10 ml PO Q4H PRN PRN Reason: Cough and congestion Heparin Sodium (Porcine) (Heparin) 5,000 units SC Q12 [facility] Last Admin: 11/08/18 09:42 Dose: Not Given Sodium Chloride (Sodium Chloride 0.9%) 1,000 mls @ 100 mls/hr IV .Q10H [facility] Last Admin: 11/08/18 08:00 Dose: Not Given Cefepime HCl (Maxipime Iv 1 Gm Premix) 1 gm in 50 mls @ 100 mls/hr IVPB Q12H [facility]; Protocol Last Admin: 11/08/18 11:15 Dose: Not Given Vancomycin HCl 1 gm/ Sodium (Chloride) 250 mls @ 166.7 mls/hr IVPB Q24H [facility]; Protocol Last Admin: 11/07/18 23:15 Dose: 166.7 mls/hr Ibuprofen (Motrin Tab) 600 mg PO Q6 PRN PRN Reason: Pain, moderate (4-7) Last Admin: 11/07/18 18:44 Dose: 600 mg Influenza Virus Vaccine (Flucelvax Quad [id number] Syr) 60 mcg IM .ONCE ONE Stop: 11/09/18 10:01 Loperamide HCl (Imodium) 2 mg PO Q8 PRN PRN Reason: Diarrhea Methadone HCl (Methadone) 15 mg PO Q24H [facility]; Taper Stop: 11/11/18 09:59 Last Admin: 11/08/18 09:11 Dose: 15 mg Ondansetron HCl (Zofran Tab) 4 mg PO Q8 PRN PRN Reason: Nausea/Vomiting Pseudoephedrine HCl (Sudafed Tab) 60 mg PO QID PRN PRN Reason: Nasal/Sinus Congestion - Labs Labs: 11/08/18 06:45 11/07/18 06:57 PT 15.0 SECONDS (9.7-12.2) H 11/06/18 09:12 INR 1.4 11/06/18 09:12 APTT 35 SECONDS (21-34) H 11/06/18 09:12 - Constitutional Appears: Non-toxic, Chronically Ill - Head Exam Head Exam: NORMOCEPHALIC - Eye Exam Eye Exam: absent: Scleral icterus - ENT Exam ENT Exam: Mucous Membranes Dry - Neck Exam Neck Exam: absent: Lymphadenopathy - Respiratory Exam Respiratory Exam: Decreased Breath Sounds - Cardiovascular Exam Cardiovascular Exam: REGULAR RHYTHM - GI/Abdominal Exam GI & Abdominal Exam: Distended, Soft - Rectal Exam Rectal Exam: Deferred - Exam Exam: NORMAL INSPECTION - Extremities Exam Extremities Exam: absent: Pedal Edema - Back Exam Back Exam: absent: CVA tenderness (L), CVA tenderness (R) - Neurological Exam Neurological Exam: Alert, Awake Assessment and Plan (1) ARF (acute renal failure) Status: Acute (2) Drug abuse and dependence Status: Acute (3) Endocarditis Status: Acute (4) Extremity edema Status: Acute (5) Cellulitis Status: Acute - Assessment and Plan (Free Text) Assessment: await cultures cont iv rx
--- NOTE | 2018-11-08 18:57 | CP.PCM.CON ---
History of Present Illness - History of Present Illness History of Present Illness: 48 y/o non-compliant patient active substance abuser Heroine and Cocaine and on methadone. 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 He presented with c/o leg pain and edema in the context of using heroin and cocaine morning of. There is no CP, angina, arrythmia, or lung congestion/PND/Orthopnea There is no fever or toxic appearance. Respiratory: comfortable no distress Cardiac Hx: No hx of CAD, Chronic endocarditis TV diagnosed 04/2018 Review of Systems - Review of Systems All systems: reviewed and no additional remarkable complaints except Past Patient History - Tetanus Immunizations Tetanus Immunization: Unknown - Past Medical History & Family History Past Medical History?: Yes - Past Social History Smoking Status: Heavy Smoker > 10 Cigarettes Daily - CARDIAC Other/Comment: Endocarditis - PULMONARY Hx Respiratory Disorders: No - NEUROLOGICAL Hx Neurological Disorder: No - HEENT Hx HEENT Problems: No - RENAL Hx Chronic Kidney Disease: No - ENDOCRINE/METABOLIC Hx Endocrine Disorders: No - HEMATOLOGICAL/ONCOLOGICAL Hx Blood Disorders: No - INTEGUMENTARY Hx Dermatological Problems: No - MUSCULOSKELETAL/RHEUMATOLOGICAL Hx Musculoskeletal Disorders: No Hx Falls: No - GASTROINTESTINAL Hx Gastrointestinal Disorders: No - GENITOURINARY/GYNECOLOGICAL Hx Genitourinary Disorders: No - PSYCHIATRIC Hx Substance Use: Yes (HEROIN, COCAINE : QUIT) - SURGICAL HISTORY Hx Surgeries: Yes Hx Orthopedic Surgery: Yes (R KNEE) - ANESTHESIA Hx Anesthesia: Yes Hx Anesthesia Reactions: No Meds Allergies/Adverse Reactions: Allergies Allergy/AdvReac Type Severity Reaction Status Date / Time No Known Allergies Allergy Verified 11/14/14 15:03 - Medications Medications: Current Medications Acetaminophen (Tylenol 325mg Tab) 650 mg PO Q4H PRN PRN Reason: Fever greater than 101 F Al Hydrox/Mg Hydrox/Simethicone (Maalox 30 Ml) 30 ml PO TID PRN PRN Reason: Indigestion / Heartburn Dicyclomine HCl (Bentyl) 10 mg PO Q6 PRN PRN Reason: Muscle spasm Diphenhydramine HCl (Benadryl) 25 mg PO Q6 PRN PRN Reason: Agitation Last Admin: 11/07/18 11:20 Dose: 25 mg Guaifenesin/Dextromethorphan (Robitussin Dm) 10 ml PO Q4H PRN PRN Reason: Cough and congestion Heparin Sodium (Porcine) (Heparin) 5,000 units SC Q12 MARJAN Last Admin: 11/08/18 09:42 Dose: Not Given Sodium Chloride (Sodium Chloride 0.9%) 1,000 mls @ 100 mls/hr IV .Q10H MARJAN Last Admin: 11/08/18 17:00 Dose: Not Given Cefepime HCl (Maxipime Iv 1 Gm Premix) 1 gm in 50 mls @ 100 mls/hr IVPB Q12H MARJAN; Protocol Last Admin: 11/08/18 11:15 Dose: Not Given Vancomycin HCl 1 gm/ Sodium (Chloride) 250 mls @ 166.7 mls/hr IVPB Q24H MARJAN; Protocol Last Admin: 11/07/18 23:15 Dose: 166.7 mls/hr Ibuprofen (Motrin Tab) 600 mg PO Q6 PRN PRN Reason: Pain, moderate (4-7) Last Admin: 11/07/18 18:44 Dose: 600 mg Influenza Virus Vaccine (Flucelvax Quad [id number] Syr) 60 mcg IM .ONCE ONE Stop: 11/09/18 10:01 Loperamide HCl (Imodium) 2 mg PO Q8 PRN PRN Reason: Diarrhea Methadone HCl (Methadone) 15 mg PO Q24H MARJAN; Taper Stop: 11/11/18 09:59 Last Admin: 11/08/18 09:11 Dose: 15 mg Ondansetron HCl (Zofran Tab) 4 mg PO Q8 PRN PRN Reason: Nausea/Vomiting Pseudoephedrine HCl (Sudafed Tab) 60 mg PO QID PRN PRN Reason: Nasal/Sinus Congestion Physical Exam - Constitutional Appears: No Acute Distress - Head Exam Head Exam: ATRAUMATIC, NORMAL INSPECTION, NORMOCEPHALIC - Eye Exam Eye Exam: EOMI, Normal appearance. absent: Scleral icterus - ENT Exam ENT Exam: Mucous Membranes Moist, Normal Oropharynx - Neck Exam Neck exam: Positive for: Full Rom, Normal Inspection. Negative for: Tenderness, Thyromegaly - Respiratory Exam Respiratory Exam: Clear to Auscultation Bilateral, NORMAL BREATHING PATTERN. absent: Rhonchi, Wheezes - Cardiovascular Exam Cardiovascular Exam: REGULAR RHYTHM, +S1, +S2, Systolic Murmur (LLSB no radiation) - GI/Abdominal Exam GI & Abdominal Exam: Normal Bowel Sounds, Soft. absent: Tenderness - Extremities Exam Extremities exam: Positive for: pedal edema, pedal pulses present. Negative for: calf tenderness, normal inspection (chronic venous stasis, mild edema B/L LE's CEAP 3-4 changes no ulcers) - Neurological Exam Neurological exam: Alert, Oriented x3 - Psychiatric Exam Psychiatric exam: Anxious, Normal Mood - Skin Skin Exam: Normal Color, Warm Results - Vital Signs Recent Vital Signs: Last Vital Signs Temp 98.2 F 11/08/18 16:00 Pulse 67 11/08/18 16:00 Resp 20 11/08/18 16:00 BP 154/94 H 11/08/18 16:00 Pulse Ox 99 11/08/18 16:00 - Labs Result Diagrams: 11/08/18 06:45 11/07/18 06:57 Labs: Laboratory Results - last 24 hr 11/08/18 11/08/18 06:45 06:45 WBC 5.3 RBC 3.21 L Hgb 8.9 L Hct 26.2 L MCV 81.6 MCH 27.6 MCHC 33.8 RDW 13.9 Plt Count 259 MPV 7.4 Ferritin 286.0 - EKG Data EKG Interpreted by: Myself Assessment & Plan - Assessment and Plan (Free Text) Assessment: 48 y/o chronic polysubstance abuser and on methadone: [place] [facility] [place] Known chronic TV endocarditis with recent echo this admission : images viewed by me suggesting normal LVEF with mod PULM HTN. PATIENT MUST ABSTAIN AND METHADONE MUST BE TAPERED. CONTINUE ANTIBIOTICS PER ID BLOOD CULTURES ARE NEGATIVE THUS FAR - PATIENT IS SURGICAL RISK FOR RECURRENCE OF IE, UNLESS HE CAN ABSTAIN FROM POLYSUBSTANCE ABUSE - LONG DISCUSSION WITH PATIENT REGARDS RISKS OF SERIOUS CONSEQUENCES FROM POLY SUBSTANCE ABUSE INCLUDING AND CVA: HE UNDERSTANDS THE RISKS, BUT IS NOT EXPRESSING DESIRE TO REFRAIN. CONT SUPPORTIVE CARE/PSYCH INTERVENTIONS. SUPPORTIVE CARE, WITHDRAWAL PRECAUTIONS SBP IS HIGH: CREAT INITIALLY 2.6 NOW 1.4 : CONSIDER ADDITION OF LOSARTAN, AVOID bb ACTIVE COCAINE USER. - Date & Time Date: 11/09/18 Time: 10:24
[2018-11-09] MEDS ORDERED: Influenza Vaccine 60 mcg/0.5 mL SYR (4YR UP) IM ONE (10:00)
--- NOTE | 2018-11-09 10:38 | CP.PCM.PN ---
Subjective - Date & Time of Evaluation Date of Evaluation: 11/09/18 Time of Evaluation: 10:36 - Subjective Subjective: pt ishaving iv acses seen by dr holman for endocarditis Objective - Vital Signs/Intake and Output Vital Signs (last 24 hours): Temp Pulse Resp BP Pulse Ox 98 F 77 20 158/85 H 98 11/09/18 08:00 11/09/18 08:00 11/09/18 08:00 11/09/18 08:00 11/09/18 08:00 Intake and Output: 11/09/18 11/09/18 06:59 18:59 Intake Total 900 Balance 900 - Medications Medications: Current Medications Acetaminophen (Tylenol 325mg Tab) 650 mg PO Q4H PRN PRN Reason: Fever greater than 101 F Al Hydrox/Mg Hydrox/Simethicone (Maalox 30 Ml) 30 ml PO TID PRN PRN Reason: Indigestion / Heartburn Dicyclomine HCl (Bentyl) 10 mg PO Q6 PRN PRN Reason: Muscle spasm Diphenhydramine HCl (Benadryl) 25 mg PO Q6 PRN PRN Reason: Agitation Last Admin: 11/08/18 19:19 Dose: 25 mg Gabapentin (Neurontin) 300 mg PO TID MARJAN Last Admin: 11/09/18 09:08 Dose: 300 mg Guaifenesin/Dextromethorphan (Robitussin Dm) 10 ml PO Q4H PRN PRN Reason: Cough and congestion Heparin Sodium (Porcine) (Heparin) 5,000 units SC Q12 MARJAN Last Admin: 11/09/18 10:12 Dose: Not Given Hydroxyzine HCl (Atarax) 25 mg PO Q6 PRN PRN Reason: Agitation Sodium Chloride (Sodium Chloride 0.9%) 1,000 mls @ 100 mls/hr IV .Q10H MARJAN Last Admin: 11/08/18 17:00 Dose: Not Given Cefepime HCl (Maxipime Iv 1 Gm Premix) 1 gm in 50 mls @ 100 mls/hr IVPB Q12H MARJAN; Protocol Last Admin: 11/08/18 22:19 Dose: Not Given Vancomycin HCl 1 gm/ Sodium (Chloride) 250 mls @ 166.7 mls/hr IVPB Q24H MARJAN; Protocol Last Admin: 11/08/18 22:19 Dose: Not Given Ibuprofen (Motrin Tab) 600 mg PO Q6 PRN PRN Reason: Pain, moderate (4-7) Last Admin: 11/09/18 10:22 Dose: 600 mg Loperamide HCl (Imodium) 2 mg PO Q8 PRN PRN Reason: Diarrhea Methadone HCl (Methadone) 10 mg PO Q24H MARJAN; Taper Stop: 11/11/18 09:59 Last Admin: 11/09/18 09:08 Dose: 10 mg Ondansetron HCl (Zofran Tab) 4 mg PO Q8 PRN PRN Reason: Nausea/Vomiting Pseudoephedrine HCl (Sudafed Tab) 60 mg PO QID PRN PRN Reason: Nasal/Sinus Congestion Trazodone HCl (Desyrel) 50 mg PO HS PRN PRN Reason: Insomnia - Labs Labs: 11/08/18 06:45 11/07/18 06:57 PT 15.0 SECONDS (9.7-12.2) H 11/06/18 09:12 INR 1.4 11/06/18 09:12 APTT 35 SECONDS (21-34) H 11/06/18 09:12 - Constitutional Appears: In Acute Distress - Head Exam Head Exam: ATRAUMATIC - Eye Exam Eye Exam: Normal appearance Pupil Exam: NORMAL ACCOMODATION - ENT Exam ENT Exam: Normal Exam - Neck Exam Neck Exam: Normal Inspection - Respiratory Exam Respiratory Exam: Clear to Ausculation Bilateral - Cardiovascular Exam Cardiovascular Exam: REGULAR RHYTHM - GI/Abdominal Exam GI & Abdominal Exam: Normal Bowel Sounds - Extremities Exam Extremities Exam: Full ROM - Neurological Exam Neurological Exam: Alert, Normal Gait, Oriented x3 - Psychiatric Exam Psychiatric exam: Normal Mood - Skin Skin Exam: Normal Color Assessment and Plan - Assessment and Plan (Free Text) Assessment: s/p heroin abuse endocarditis Plan: cont treatment
--- NOTE | 2018-11-09 11:02 | RAD ---
Date of service: 11/09/2018 HISTORY: Verify right PICC COMPARISON: 11/06/2018 FINDINGS: LUNGS: No active pulmonary disease. PLEURA: No significant pleural effusion identified, no pneumothorax apparent. CARDIOVASCULAR: No aortic atherosclerotic calcification present. Normal cardiac size. No pulmonary vascular congestion. New right PICC catheter terminating in the region of the superior vena cava. OSSEOUS STRUCTURES: No significant abnormalities. VISUALIZED UPPER ABDOMEN: Normal. OTHER FINDINGS: None. IMPRESSION: No active disease. New right PICC catheter terminating in the region of superior vena cava.
[2018-11-09] MEDS: Cefepime IV 1 gm in Dextrose 1 GM/50 ML BAG IVPB SCH ×2 (11:25→22:01)
[2018-11-09] MEDS: Sodium Chloride 0.9% 1,000 ML IV SCH ×2 (12:00→23:15)
--- NOTE | 2018-11-09 19:02 | CP.PCM.PN ---
Subjective - Date & Time of Evaluation Date of Evaluation: 11/09/18 Time of Evaluation: 08:00 - Subjective Subjective: seen on rounds denies fever Objective - Vital Signs/Intake and Output Vital Signs (last 24 hours): Temp Pulse Resp BP Pulse Ox 98.2 F 87 20 166/85 H 97 11/09/18 15:44 11/09/18 15:44 11/09/18 15:44 11/09/18 15:44 11/09/18 15:44 - Medications Medications: Current Medications Acetaminophen (Tylenol 325mg Tab) 650 mg PO Q4H PRN PRN Reason: Fever greater than 101 F Al Hydrox/Mg Hydrox/Simethicone (Maalox 30 Ml) 30 ml PO TID PRN PRN Reason: Indigestion / Heartburn Dicyclomine HCl (Bentyl) 10 mg PO Q6 PRN PRN Reason: Muscle spasm Diphenhydramine HCl (Benadryl) 25 mg PO Q6 PRN PRN Reason: Agitation Last Admin: 11/08/18 19:19 Dose: 25 mg Gabapentin (Neurontin) 300 mg PO TID MARJAN Last Admin: 11/09/18 17:07 Dose: 300 mg Guaifenesin/Dextromethorphan (Robitussin Dm) 10 ml PO Q4H PRN PRN Reason: Cough and congestion Heparin Sodium (Porcine) (Heparin) 5,000 units SC Q12 MARJAN Last Admin: 11/09/18 10:12 Dose: Not Given Hydroxyzine HCl (Atarax) 25 mg PO Q6 PRN PRN Reason: Agitation Cefepime HCl (Maxipime Iv 1 Gm Premix) 1 gm in 50 mls @ 100 mls/hr IVPB Q12H MARJAN; Protocol Last Admin: 11/09/18 11:25 Dose: 100 mls/hr Vancomycin HCl 1 gm/ Sodium (Chloride) 250 mls @ 167 mls/hr IVPB Q24H [facility]; Protocol Ibuprofen (Motrin Tab) 600 mg PO Q6 PRN PRN Reason: Pain, moderate (4-7) Last Admin: 11/09/18 10:22 Dose: 600 mg Loperamide HCl (Imodium) 2 mg PO Q8 PRN PRN Reason: Diarrhea Methadone HCl (Methadone) 10 mg PO Q24H MARJAN; Taper Stop: 03/24/19 09:59 Last Admin: 11/09/18 09:08 Dose: 10 mg Ondansetron HCl (Zofran Tab) 4 mg PO Q8 PRN PRN Reason: Nausea/Vomiting Pseudoephedrine HCl (Sudafed Tab) 60 mg PO QID PRN PRN Reason: Nasal/Sinus Congestion Trazodone HCl (Desyrel) 50 mg PO HS PRN PRN Reason: Insomnia - Labs Labs: 11/08/18 06:45 11/07/18 06:57 PT 15.0 SECONDS (9.7-12.2) H 11/06/18 09:12 INR 1.4 11/06/18 09:12 APTT 35 SECONDS (21-34) H 11/06/18 09:12 - Constitutional Appears: Non-toxic, Chronically Ill - Head Exam Head Exam: NORMOCEPHALIC - Eye Exam Eye Exam: EOMI, Normal appearance, PERRL Pupil Exam: NORMAL ACCOMODATION, PERRL - ENT Exam ENT Exam: Mucous Membranes Moist, Normal Exam - Neck Exam Neck Exam: Full ROM, Normal Inspection. absent: Lymphadenopathy - Respiratory Exam Respiratory Exam: Clear to Ausculation Bilateral, NORMAL BREATHING PATTERN - Cardiovascular Exam Cardiovascular Exam: REGULAR RHYTHM, +S1, +S2. absent: Murmur - GI/Abdominal Exam GI & Abdominal Exam: Soft, Normal Bowel Sounds. absent: Tenderness - Rectal Exam Rectal Exam: Deferred - Exam Exam: NORMAL INSPECTION - Extremities Exam Extremities Exam: Full ROM, Normal Capillary Refill, Normal Inspection. absent: Joint Swelling, Pedal Edema - Back Exam Back Exam: NORMAL INSPECTION - Neurological Exam Neurological Exam: Alert, Awake, CN II-XII Intact, Normal Gait, Oriented x3 - Psychiatric Exam Psychiatric exam: Normal Affect, Normal Mood - Skin Skin Exam: Dry, Intact, Normal Color, Warm Assessment and Plan (1) ARF (acute renal failure) Status: Acute (2) Drug abuse and dependence Status: Acute (3) Endocarditis Status: Acute (4) Extremity edema Status: Acute (5) Cellulitis Status: Acute - Assessment and Plan (Free Text) Assessment: cultures pending IV rx in progress
[2018-11-09] MEDS: Vancomycin 1 gm/NS 200 ml 1 GM/200 ML BAG IVPB SCH (19:50)
[2018-11-10] MEDS: Sodium Chloride 0.9% 1,000 ML IV SCH ×2 (08:25→23:11)
[2018-11-10] MEDS: Vancomycin 1 gm/NS 200 ml 1 GM/200 ML BAG IVPB SCH ×2 (09:55→20:04)
--- NOTE | 2018-11-10 11:08 | CP.PCM.PN ---
Subjective - Date & Time of Evaluation Date of Evaluation: 11/10/18 Time of Evaluation: 11:05 - Subjective Subjective: seen and examined u/a infection Objective - Vital Signs/Intake and Output Vital Signs (last 24 hours): Temp Pulse Resp BP Pulse Ox 99.1 F 100 H 20 169/98 H 98 11/10/18 08:25 11/10/18 08:25 11/10/18 08:25 11/10/18 08:25 11/10/18 08:25 Intake and Output: 11/10/18 11/10/18 06:59 18:59 Intake Total 1100 Balance 1100 - Medications Medications: Current Medications Acetaminophen (Tylenol 325mg Tab) 650 mg PO Q4H PRN PRN Reason: Fever greater than 101 F Al Hydrox/Mg Hydrox/Simethicone (Maalox 30 Ml) 30 ml PO TID PRN PRN Reason: Indigestion / Heartburn Dicyclomine HCl (Bentyl) 10 mg PO Q6 PRN PRN Reason: Muscle spasm Diphenhydramine HCl (Benadryl) 25 mg PO Q6 PRN PRN Reason: Agitation Last Admin: 11/08/18 19:19 Dose: 25 mg Gabapentin (Neurontin) 300 mg PO TID MARJAN Last Admin: 11/10/18 09:56 Dose: 300 mg Guaifenesin/Dextromethorphan (Robitussin Dm) 10 ml PO Q4H PRN PRN Reason: Cough and congestion Hydroxyzine HCl (Atarax) 25 mg PO Q6 PRN PRN Reason: Agitation Cefepime HCl (Maxipime Iv 1 Gm Premix) 1 gm in 50 mls @ 100 mls/hr IVPB Q12H S ; Protocol Last Admin: 11/09/18 22:01 Dose: 100 mls/hr Vancomycin/Sodium Chloride (Vancomycin 1 Gm/Ns 200 Ml) 1 gm in 200 mls @ 133 mls/hr IVPB Q12H MARJAN; Protocol Stop: 11/14/18 20:01 Last Admin: 11/10/18 09:55 Dose: 133 mls/hr Ceftriaxone Sodium 1 gm/ (Sodium Chloride) 100 mls @ 100 drops/sec IVPB DAILY MARJAN; Protocol Ibuprofen (Motrin Tab) 600 mg PO Q6 PRN PRN Reason: Pain, moderate (4-7) Last Admin: 11/09/18 10:22 Dose: 600 mg Loperamide HCl (Imodium) 2 mg PO Q8 PRN PRN Reason: Diarrhea Methadone HCl (Methadone) 5 mg PO Q24H MARJAN; Taper Stop: 11/11/18 09:59 Last Admin: 11/10/18 10:06 Dose: 5 mg Ondansetron HCl (Zofran Tab) 4 mg PO Q8 PRN PRN Reason: Nausea/Vomiting Pseudoephedrine HCl (Sudafed Tab) 60 mg PO QID PRN PRN Reason: Nasal/Sinus Congestion Trazodone HCl (Desyrel) 50 mg PO HS PRN PRN Reason: Insomnia - Labs Labs: 11/08/18 06:45 11/07/18 06:57 PT 15.0 SECONDS (9.7-12.2) H 11/06/18 09:12 INR 1.4 11/06/18 09:12 APTT 35 SECONDS (21-34) H 11/06/18 09:12 - Constitutional Appears: In Acute Distress - Head Exam Head Exam: ATRAUMATIC - Eye Exam Eye Exam: Normal appearance Pupil Exam: NORMAL ACCOMODATION - ENT Exam ENT Exam: Mucous Membranes Moist - Neck Exam Neck Exam: Full ROM - Respiratory Exam Respiratory Exam: NORMAL BREATHING PATTERN - Cardiovascular Exam Cardiovascular Exam: REGULAR RHYTHM - GI/Abdominal Exam GI & Abdominal Exam: Soft - Extremities Exam Extremities Exam: Normal Inspection - Back Exam Back Exam: NORMAL INSPECTION - Neurological Exam Neurological Exam: Awake, Oriented x3 - Psychiatric Exam Psychiatric exam: Normal Affect - Skin Skin Exam: Pallor Assessment and Plan - Assessment and Plan (Free Text) Assessment: ac uti endocarditis aneamia iv drug abuse Plan: as per orders
[2018-11-10] MEDS: Cefepime IV 1 gm in Dextrose 1 GM/50 ML BAG IVPB SCH ×2 (11:24→22:50)
--- NOTE | 2018-11-10 15:44 | CP.PCM.PN ---
Subjective - Date & Time of Evaluation Date of Evaluation: 11/10/18 Time of Evaluation: 08:00 - Subjective Subjective: Events reviewed Objective - Vital Signs/Intake and Output Vital Signs (last 24 hours): Temp Pulse Resp BP Pulse Ox 99.1 F 100 H 20 169/98 H 98 11/10/18 08:25 11/10/18 08:25 11/10/18 08:25 11/10/18 08:25 11/10/18 08:25 Intake and Output: 11/10/18 11/10/18 06:59 18:59 Intake Total 1100 1380 Balance 1100 1380 - Medications Medications: Current Medications Acetaminophen (Tylenol 325mg Tab) 650 mg PO Q4H PRN PRN Reason: Fever greater than 101 F Al Hydrox/Mg Hydrox/Simethicone (Maalox 30 Ml) 30 ml PO TID PRN PRN Reason: Indigestion / Heartburn Dicyclomine HCl (Bentyl) 10 mg PO Q6 PRN PRN Reason: Muscle spasm Diphenhydramine HCl (Benadryl) 25 mg PO Q6 PRN PRN Reason: Agitation Last Admin: 11/08/18 19:19 Dose: 25 mg Gabapentin (Neurontin) 300 mg PO TID MARJAN Last Admin: 11/10/18 14:06 Dose: 300 mg Guaifenesin/Dextromethorphan (Robitussin Dm) 10 ml PO Q4H PRN PRN Reason: Cough and congestion Hydroxyzine HCl (Atarax) 25 mg PO Q6 PRN PRN Reason: Agitation Cefepime HCl (Maxipime Iv 1 Gm Premix) 1 gm in 50 mls @ 100 mls/hr IVPB Q12H [facility]JAN; Protocol Last Admin: 11/10/18 11:24 Dose: 100 mls/hr Vancomycin/Sodium Chloride (Vancomycin 1 Gm/Ns 200 Ml) 1 gm in 200 mls @ 133 mls/hr IVPB Q12H MARJAN; Protocol Stop: 11/14/18 20:01 Last Admin: 11/10/18 09:55 Dose: 133 mls/hr Ceftriaxone Sodium 1 gm/ (Sodium Chloride) 100 mls @ 100 drops/sec IVPB DAILY MARJAN; Protocol Ibuprofen (Motrin Tab) 600 mg PO Q6 PRN PRN Reason: Pain, moderate (4-7) Last Admin: 11/09/18 10:22 Dose: 600 mg Loperamide HCl (Imodium) 2 mg PO Q8 PRN PRN Reason: Diarrhea Methadone HCl (Methadone) 5 mg PO Q24H MARJAN; Taper Stop: 11/11/18 09:59 Last Admin: 11/10/18 10:06 Dose: 5 mg Ondansetron HCl (Zofran Tab) 4 mg PO Q8 PRN PRN Reason: Nausea/Vomiting Pseudoephedrine HCl (Sudafed Tab) 60 mg PO QID PRN PRN Reason: Nasal/Sinus Congestion Trazodone HCl (Desyrel) 50 mg PO HS PRN PRN Reason: Insomnia - Labs Labs: 11/08/18 06:45 11/07/18 06:57 PT 15.0 SECONDS (9.7-12.2) H 11/06/18 09:12 INR 1.4 11/06/18 09:12 APTT 35 SECONDS (21-34) H 11/06/18 09:12 Assessment and Plan - Assessment and Plan (Free Text) Assessment: Physical Exam - Constitutional Appears: No Acute Distress - Head Exam Head Exam: ATRAUMATIC, NORMAL INSPECTION, NORMOCEPHALIC - Eye Exam Eye Exam: EOMI, Normal appearance. absent: Scleral icterus - ENT Exam ENT Exam: Mucous Membranes Moist, Normal Oropharynx - Neck Exam Neck exam: Positive for: Full Rom, Normal Inspection. Negative for: Tenderness, Thyromegaly - Respiratory Exam Respiratory Exam: Clear to Auscultation Bilateral, NORMAL BREATHING PATTERN. absent: Rhonchi, Wheezes - Cardiovascular Exam Cardiovascular Exam: REGULAR RHYTHM, +S1, +S2, Systolic Murmur (LLSB no radiation) - GI/Abdominal Exam GI & Abdominal Exam: Normal Bowel Sounds, Soft. absent: Tenderness - Extremities Exam Extremities exam: Positive for: pedal edema, pedal pulses present. Negative for: calf tenderness, normal inspection (chronic venous stasis, mild edema B/L L E's CEAP 3-4 changes no ulcers) - Neurological Exam Neurological exam: Alert, Oriented x3 - Psychiatric Exam Psychiatric exam: Anxious, Normal Mood - Skin Skin Exam: Normal Color, Warm EKG images viewed by me: NSR Assessment & Plan - Assessment and Plan (Free Text) Assessment: 48 y/o chronic polysubstance abuser and on methadone: Signed out AMA from [facility] [place] 10/2018 Known chronic TV endocarditis with recent echo this admission : images viewed by me suggesting normal LVEF with mod PULM HTN. CONTINUE ANTIBIOTICS PER ID BLOOD CULTURES ARE NEGATIVE THUS FAR - PATIENT IS SURGICAL RISK FOR RECURRENCE OF IE, UNLESS HE CAN ABSTAIN FROM POLYSUBSTANCE ABUSE - LONG DISCUSSION WITH PATIENT REGARDS RISKS OF SERIOUS CONSEQUENCES FROM POLYSUBSTANCE ABUSE INCLUDING AND CVA: HE UNDERSTANDS THE RISKS, BUT IS NOT EXPRESSING DESIRE TO REFRAIN. CONT SUPPORTIVE CARE/PSYCH INTERVENTIONS. Acute renal failure improving, refusing labs.
[2018-11-11] MEDS: Vancomycin 1 gm/NS 200 ml 1 GM/200 ML BAG IVPB SCH ×2 (08:26→19:28)
[2018-11-11] MEDS: Cefepime IV 1 gm in Dextrose 1 GM/50 ML BAG IVPB SCH ×2 (10:27→22:07)
--- NOTE | 2018-11-11 12:36 | CP.PCM.PN ---
Subjective - Date & Time of Evaluation Date of Evaluation: 11/11/18 Time of Evaluation: 12:33 - Subjective Subjective: pt feels beter ambulting comfortale on iv med as ordered Objective - Vital Signs/Intake and Output Vital Signs (last 24 hours): Temp Pulse Resp BP Pulse Ox 98.2 F 70 20 140/70 100 11/11/18 08:30 11/11/18 08:30 11/11/18 08:30 11/11/18 08:30 11/11/18 08:30 Intake and Output: 11/11/18 11/11/18 06:59 18:59 Intake Total 1600 1040 Balance 1600 1040 - Medications Medications: Current Medications Acetaminophen (Tylenol 325mg Tab) 650 mg PO Q4H PRN PRN Reason: Fever greater than 101 F Al Hydrox/Mg Hydrox/Simethicone (Maalox 30 Ml) 30 ml PO TID PRN PRN Reason: Indigestion / Heartburn Dicyclomine HCl (Bentyl) 10 mg PO Q6 PRN PRN Reason: Muscle spasm Gabapentin (Neurontin) 300 mg PO TID MARJAN Last Admin: 11/11/18 09:31 Dose: 300 mg Guaifenesin/Dextromethorphan (Robitussin Dm) 10 ml PO Q4H PRN PRN Reason: Cough and congestion Hydroxyzine HCl (Atarax) 25 mg PO Q6 PRN PRN Reason: Agitation Cefepime HCl (Maxipime Iv 1 Gm Premix) 1 gm in 50 mls @ 100 mls/hr IVPB Q12H MARJAN; Protocol Last Admin: 11/11/18 10:27 Dose: 100 mls/hr Vancomycin/Sodium Chloride (Vancomycin 1 Gm/Ns 200 Ml) 1 gm in 200 mls @ 133 mls/hr IVPB Q12H MARJAN; Protocol Stop: 11/14/18 20:01 Last Admin: 11/11/18 08:26 Dose: 133 mls/hr Ibuprofen (Motrin Tab) 600 mg PO Q6 PRN PRN Reason: Pain, moderate (4-7) Last Admin: 11/09/18 10:22 Dose: 600 mg Loperamide HCl (Imodium) 2 mg PO Q8 PRN PRN Reason: Diarrhea Ondansetron HCl (Zofran Tab) 4 mg PO Q8 PRN PRN Reason: Nausea/Vomiting Trazodone HCl (Desyrel) 50 mg PO HS PRN PRN Reason: Insomnia - Labs Labs: 11/08/18 06:45 11/07/18 06:57 PT 15.0 SECONDS (9.7-12.2) H 11/06/18 09:12 INR 1.4 11/06/18 09:12 APTT 35 SECONDS (21-34) H 11/06/18 09:12 - Constitutional Appears: No Acute Distress - Head Exam Head Exam: ATRAUMATIC - Eye Exam Eye Exam: Normal appearance Pupil Exam: NORMAL ACCOMODATION - ENT Exam ENT Exam: Mucous Membranes Moist - Neck Exam Neck Exam: Full ROM, Normal Inspection - Respiratory Exam Respiratory Exam: Clear to Ausculation Bilateral - Cardiovascular Exam Cardiovascular Exam: REGULAR RHYTHM - GI/Abdominal Exam GI & Abdominal Exam: Normal Bowel Sounds Additional comments: ringuinal hernia - Exam Exam: NORMAL INSPECTION - Extremities Exam Extremities Exam: Full ROM - Back Exam Back Exam: NORMAL INSPECTION - Neurological Exam Neurological Exam: Normal Gait - Psychiatric Exam Psychiatric exam: Normal Mood - Skin Skin Exam: Normal Color Assessment and Plan - Assessment and Plan (Free Text) Assessment: endocarditis heroin abuse aneamia r insuf improving Plan: continu as per orders
--- NOTE | 2018-11-11 15:31 | CP.PCM.PN ---
Subjective - Date & Time of Evaluation Date of Evaluation: 11/11/18 Time of Evaluation: 08:00 - Subjective Subjective: seen on rounds ROS completed chart reviewed patient examined orders written antibiotics renewed Objective - Vital Signs/Intake and Output Vital Signs (last 24 hours): Temp Pulse Resp BP Pulse Ox 98.2 F 70 20 140/70 100 11/11/18 08:30 11/11/18 08:30 11/11/18 08:30 11/11/18 08:30 11/11/18 08:30 Intake and Output: 11/11/18 11/11/18 06:59 18:59 Intake Total 1600 1040 Balance 1600 1040 - Medications Medications: Current Medications Acetaminophen (Tylenol 325mg Tab) 650 mg PO Q4H PRN PRN Reason: Fever greater than 101 F Al Hydrox/Mg Hydrox/Simethicone (Maalox 30 Ml) 30 ml PO TID PRN PRN Reason: Indigestion / Heartburn Dicyclomine HCl (Bentyl) 10 mg PO Q6 PRN PRN Reason: Muscle spasm Gabapentin (Neurontin) 300 mg PO TID MARJAN Last Admin: 11/11/18 13:57 Dose: 300 mg Guaifenesin/Dextromethorphan (Robitussin Dm) 10 ml PO Q4H PRN PRN Reason: Cough and congestion Hydroxyzine HCl (Atarax) 25 mg PO Q6 PRN PRN Reason: Agitation Cefepime HCl (Maxipime Iv 1 Gm Premix) 1 gm in 50 mls @ 100 mls/hr IVPB Q12H MARJAN; Protocol Last Admin: 11/11/18 10:27 Dose: 100 mls/hr Vancomycin/Sodium Chloride (Vancomycin 1 Gm/Ns 200 Ml) 1 gm in 200 mls @ 133 mls/hr IVPB Q12H MARJAN; Protocol Stop: 11/14/18 20:01 Last Admin: 11/11/18 08:26 Dose: 133 mls/hr Ibuprofen (Motrin Tab) 600 mg PO Q6 PRN PRN Reason: Pain, moderate (4-7) Last Admin: 11/09/18 10:22 Dose: 600 mg Loperamide HCl (Imodium) 2 mg PO Q8 PRN PRN Reason: Diarrhea Ondansetron HCl (Zofran Tab) 4 mg PO Q8 PRN PRN Reason: Nausea/Vomiting Trazodone HCl (Desyrel) 50 mg PO HS PRN PRN Reason: Insomnia - Labs Labs: 11/08/18 06:45 11/07/18 06:57 PT 15.0 SECONDS (9.7-12.2) H 11/06/18 09:12 INR 1.4 11/06/18 09:12 APTT 35 SECONDS (21-34) H 11/06/18 09:12 - Constitutional Appears: Non-toxic, No Acute Distress, Chronically Ill - Head Exam Head Exam: ATRAUMATIC, NORMAL INSPECTION, NORMOCEPHALIC - Eye Exam Eye Exam: EOMI, Normal appearance, PERRL Pupil Exam: NORMAL ACCOMODATION, PERRL - ENT Exam ENT Exam: Mucous Membranes Moist, Normal Exam - Neck Exam Neck Exam: Full ROM, Normal Inspection. absent: Lymphadenopathy - Respiratory Exam Respiratory Exam: Clear to Ausculation Bilateral, NORMAL BREATHING PATTERN - Cardiovascular Exam Cardiovascular Exam: REGULAR RHYTHM, +S1, +S2. absent: Murmur - GI/Abdominal Exam GI & Abdominal Exam: Soft, Normal Bowel Sounds. absent: Tenderness - Rectal Exam Rectal Exam: Deferred - Exam Exam: NORMAL INSPECTION - Extremities Exam Extremities Exam: Full ROM, Normal Capillary Refill, Normal Inspection. absent: Joint Swelling, Pedal Edema - Back Exam Back Exam: NORMAL INSPECTION - Neurological Exam Neurological Exam: Alert, Awake, CN II-XII Intact, Normal Gait, Oriented x3 - Psychiatric Exam Psychiatric exam: Normal Affect, Normal Mood - Skin Skin Exam: Dry, Intact, Normal Color, Warm Assessment and Plan (1) ARF (acute renal failure) Status: Acute (2) Drug abuse and dependence Status: Acute (3) Endocarditis Status: Acute (4) Extremity edema Status: Acute (5) Cellulitis Status: Acute - Assessment and Plan (Free Text) Assessment: cultures so far negative not a candidate for surgery at this time recc:cont IV antibiotics
[2018-11-12] MEDS: Vancomycin 1 gm/NS 200 ml 1 GM/200 ML BAG IVPB SCH ×2 (08:32→20:00)
[2018-11-12] MEDS: Cefepime IV 1 gm in Dextrose 1 GM/50 ML BAG IVPB SCH ×2 (10:01→22:28)
--- NOTE | 2018-11-12 10:24 | CP.PCM.PN ---
Subjective - Date & Time of Evaluation Date of Evaluation: 11/12/18 Time of Evaluation: 10:18 - Subjective Subjective: pt seen comfortable on iv antibiotics c/o pain l lower ext behind the knee no tenderness Objective - Vital Signs/Intake and Output Vital Signs (last 24 hours): Temp Pulse Resp BP Pulse Ox 98.8 F 103 H 20 148/69 98 11/12/18 08:44 11/12/18 08:44 11/12/18 08:44 11/12/18 08:44 11/12/18 08:44 Intake and Output: 11/12/18 11/12/18 06:59 18:59 Intake Total 990 Balance 990 - Medications Medications: Current Medications Acetaminophen (Tylenol 325mg Tab) 650 mg PO Q4H PRN PRN Reason: Fever greater than 101 F Last Admin: 11/11/18 23:37 Dose: 650 mg Al Hydrox/Mg Hydrox/Simethicone (Maalox 30 Ml) 30 ml PO TID PRN PRN Reason: Indigestion / Heartburn Dicyclomine HCl (Bentyl) 10 mg PO Q6 PRN PRN Reason: Muscle spasm Gabapentin (Neurontin) 300 mg PO TID MARJAN Last Admin: 11/12/18 09:19 Dose: 300 mg Guaifenesin/Dextromethorphan (Robitussin Dm) 10 ml PO Q4H PRN PRN Reason: Cough and congestion Hydroxyzine HCl (Atarax) 25 mg PO Q6 PRN PRN Reason: Agitation Cefepime HCl (Maxipime Iv 1 Gm Premix) 1 gm in 50 mls @ 100 mls/hr IVPB Q12H MARJAN; Protocol Last Admin: 11/12/18 10:01 Dose: 100 mls/hr Vancomycin/Sodium Chloride (Vancomycin 1 Gm/Ns 200 Ml) 1 gm in 200 mls @ 133 mls/hr IVPB Q12H MARJAN; Protocol Stop: 11/14/18 20:01 Last Admin: 11/12/18 08:32 Dose: 133 mls/hr Ibuprofen (Motrin Tab) 600 mg PO Q6 PRN PRN Reason: Pain, moderate (4-7) Last Admin: 11/09/18 10:22 Dose: 600 mg Loperamide HCl (Imodium) 2 mg PO Q8 PRN PRN Reason: Diarrhea Ondansetron HCl (Zofran Tab) 4 mg PO Q8 PRN PRN Reason: Nausea/Vomiting Trazodone HCl (Desyrel) 50 mg PO HS PRN PRN Reason: Insomnia - Labs Labs: 11/08/18 06:45 11/07/18 06:57 PT 15.0 SECONDS (9.7-12.2) H 11/06/18 09:12 INR 1.4 11/06/18 09:12 APTT 35 SECONDS (21-34) H 11/06/18 09:12 - Constitutional Appears: Non-toxic - Head Exam Head Exam: ATRAUMATIC - Eye Exam Eye Exam: Normal appearance Pupil Exam: NORMAL ACCOMODATION - ENT Exam ENT Exam: Mucous Membranes Moist - Neck Exam Neck Exam: Normal Inspection - Respiratory Exam Respiratory Exam: Clear to Ausculation Bilateral - Cardiovascular Exam Cardiovascular Exam: REGULAR RHYTHM - Rectal Exam Rectal Exam: Deferred - Extremities Exam Extremities Exam: Full ROM - Back Exam Back Exam: NORMAL INSPECTION - Neurological Exam Neurological Exam: Alert, Awake, Normal Gait, Oriented x3 - Psychiatric Exam Psychiatric exam: Normal Mood - Skin Skin Exam: Pallor Assessment and Plan - Assessment and Plan (Free Text) Assessment: endocarditis aneamia iv heroin abuse thigh pain Plan: cont as per orders
--- NOTE | 2018-11-12 12:13 | CP.PCM.PN ---
Subjective - Date & Time of Evaluation Date of Evaluation: 11/12/18 Time of Evaluation: 12:10 - Subjective Subjective: No new complaints Cultures negative so far on ABX per ID Chronic TV endocarditis Chronic drug abuse Objective - Vital Signs/Intake and Output Vital Signs (last 24 hours): Temp Pulse Resp BP Pulse Ox 98.8 F 82 20 148/69 98 11/12/18 08:44 11/12/18 09:00 11/12/18 08:44 11/12/18 08:44 11/12/18 08:44 Intake and Output: 11/12/18 11/12/18 06:59 18:59 Intake Total 990 Balance 990 - Medications Medications: Current Medications Acetaminophen (Tylenol 325mg Tab) 650 mg PO Q4H PRN PRN Reason: Fever greater than 101 F Last Admin: 11/11/18 23:37 Dose: 650 mg Al Hydrox/Mg Hydrox/Simethicone (Maalox 30 Ml) 30 ml PO TID PRN PRN Reason: Indigestion / Heartburn Dicyclomine HCl (Bentyl) 10 mg PO Q6 PRN PRN Reason: Muscle spasm Gabapentin (Neurontin) 300 mg PO TID MARJAN Last Admin: 11/12/18 09:19 Dose: 300 mg Guaifenesin/Dextromethorphan (Robitussin Dm) 10 ml PO Q4H PRN PRN Reason: Cough and congestion Hydroxyzine HCl (Atarax) 25 mg PO Q6 PRN PRN Reason: Agitation Cefepime HCl (Maxipime Iv 1 Gm Premix) 1 gm in 50 mls @ 100 mls/hr IVPB Q12H MARJAN; Protocol Last Admin: 11/12/18 10:01 Dose: 100 mls/hr Vancomycin/Sodium Chloride (Vancomycin 1 Gm/Ns 200 Ml) 1 gm in 200 mls @ 133 mls/hr IVPB Q12H MARJAN; Protocol Stop: 11/14/18 20:01 Last Admin: 11/12/18 08:32 Dose: 133 mls/hr Ibuprofen (Motrin Tab) 600 mg PO Q6 PRN PRN Reason: Pain, moderate (4-7) Last Admin: 11/09/18 10:22 Dose: 600 mg Loperamide HCl (Imodium) 2 mg PO Q8 PRN PRN Reason: Diarrhea Ondansetron HCl (Zofran Tab) 4 mg PO Q8 PRN PRN Reason: Nausea/Vomiting Trazodone HCl (Desyrel) 50 mg PO HS PRN PRN Reason: Insomnia - Labs Labs: 11/08/18 06:45 11/07/18 06:57 PT 15.0 SECONDS (9.7-12.2) H 11/06/18 09:12 INR 1.4 11/06/18 09:12 APTT 35 SECONDS (21-34) H 11/06/18 09:12 - Constitutional Appears: No Acute Distress - Head Exam Head Exam: ATRAUMATIC, NORMAL INSPECTION, NORMOCEPHALIC - Eye Exam Eye Exam: absent: Scleral icterus - ENT Exam ENT Exam: Mucous Membranes Moist, Normal Oropharynx - Respiratory Exam Respiratory Exam: Clear to Ausculation Bilateral. absent: Rhonchi, Wheezes - Cardiovascular Exam Cardiovascular Exam: REGULAR RHYTHM, +S1, +S2, Murmur (SM LLSB soft no rad) - GI/Abdominal Exam GI & Abdominal Exam: Soft. absent: Tenderness - Extremities Exam Extremities Exam: Pedal Edema. absent: Calf Tenderness - Neurological Exam Neurological Exam: Alert, Awake, Oriented x3 - Skin Skin Exam: Normal Color, Warm Assessment and Plan - Assessment and Plan (Free Text) Assessment: 48 y/o chronic polysubstance abuser and on methadone: Signed out AMA from [facility] [place] 10/2018 Known chronic TV endocarditis with recent echo this admission : images viewed by me suggesting normal LVEF with mod PULM HTN. CONTINUE ANTIBIOTICS PER ID BLOOD CULTURES ARE NEGATIVE THUS FAR - PATIENT IS SURGICAL RISK FOR RECURRENCE OF IE, UNLESS HE CAN ABSTAIN FROM POLYSUBSTANCE ABUSE - LONG DISCUSSION WITH PATIENT REGARDS RISKS OF SERIOUS CONSEQUENCES FROM POLYSUBSTANCE ABUSE INCLUDING AND CVA: HE UNDERSTANDS THE RISKS, BUT IS NOT EXPRESSING DESIRE TO REFRAIN. CONT SUPPORTIVE CARE/PSYCH INTERVENTIONS. Acute renal failure improving, refusing labs. + HCV serology
[2018-11-13] MEDS: Vancomycin 1 gm/NS 200 ml 1 GM/200 ML BAG IVPB SCH (08:59)
--- NOTE | 2018-11-13 10:41 | CP.PCM.PN ---
Subjective - Date & Time of Evaluation Date of Evaluation: 11/13/18 Time of Evaluation: 10:41 - Subjective Subjective: has diarhea today 3 kenyetta Objective - Vital Signs/Intake and Output Vital Signs (last 24 hours): Temp Pulse Resp BP Pulse Ox 98.9 F 96 H 20 148/78 97 11/13/18 08:00 11/13/18 08:00 11/13/18 08:00 11/13/18 08:00 11/13/18 08:00 Intake and Output: 11/13/18 11/13/18 06:59 18:59 Intake Total 590 Output Total 400 Balance 190 - Medications Medications: Current Medications Acetaminophen (Tylenol 325mg Tab) 650 mg PO Q4H PRN PRN Reason: Fever greater than 101 F Last Admin: 11/11/18 23:37 Dose: 650 mg Al Hydrox/Mg Hydrox/Simethicone (Maalox 30 Ml) 30 ml PO TID PRN PRN Reason: Indigestion / Heartburn Dicyclomine HCl (Bentyl) 10 mg PO Q6 PRN PRN Reason: Muscle spasm Gabapentin (Neurontin) 300 mg PO TID MARJAN Last Admin: 11/13/18 09:14 Dose: 300 mg Guaifenesin/Dextromethorphan (Robitussin Dm) 10 ml PO Q4H PRN PRN Reason: Cough and congestion Hydroxyzine HCl (Atarax) 25 mg PO Q6 PRN PRN Reason: Agitation Cefepime HCl (Maxipime Iv 1 Gm Premix) 1 gm in 50 mls @ 100 mls/hr IVPB Q12H MARJAN; Protocol Last Admin: 11/12/18 22:28 Dose: 100 mls/hr Vancomycin/Sodium Chloride (Vancomycin 1 Gm/Ns 200 Ml) 1 gm in 200 mls @ 133 mls/hr IVPB Q12H MARJAN; Protocol Stop: 11/14/18 20:01 Last Admin: 11/13/18 08:59 Dose: 133 mls/hr Ibuprofen (Motrin Tab) 600 mg PO Q6 PRN PRN Reason: Pain, moderate (4-7) Last Admin: 11/09/18 10:22 Dose: 600 mg Loperamide HCl (Imodium) 2 mg PO Q8 PRN PRN Reason: Diarrhea Last Admin: 11/13/18 09:20 Dose: 2 mg Ondansetron HCl (Zofran Tab) 4 mg PO Q8 PRN PRN Reason: Nausea/Vomiting Trazodone HCl (Desyrel) 50 mg PO HS PRN PRN Reason: Insomnia - Labs Labs: 11/08/18 06:45 11/07/18 06:57 PT 15.0 SECONDS (9.7-12.2) H 11/06/18 09:12 INR 1.4 11/06/18 09:12 APTT 35 SECONDS (21-34) H 11/06/18 09:12 - Constitutional Appears: In Acute Distress - Head Exam Head Exam: ATRAUMATIC - Eye Exam Eye Exam: Normal appearance - ENT Exam ENT Exam: Mucous Membranes Moist - Neck Exam Neck Exam: Full ROM - Respiratory Exam Respiratory Exam: Decreased Breath Sounds - Cardiovascular Exam Cardiovascular Exam: Tachycardia - GI/Abdominal Exam GI & Abdominal Exam: Tenderness - Exam Exam: NORMAL INSPECTION - Extremities Exam Extremities Exam: Full ROM - Neurological Exam Neurological Exam: Alert, Awake, Oriented x3 - Psychiatric Exam Psychiatric exam: Normal Mood - Skin Skin Exam: Pallor Assessment and Plan - Assessment and Plan (Free Text) Assessment: ac diarhea endocarditis s/p heroin abuse aneamia Plan: as ordered
[2018-11-13] MEDS: Cefepime IV 1 gm in Dextrose 1 GM/50 ML BAG IVPB SCH (11:02)
--- NOTE | 2018-11-13 11:27 | CP.PCM.PN ---
Subjective - Date & Time of Evaluation Date of Evaluation: 11/13/18 Time of Evaluation: 08:00 - Subjective Subjective: cultures neg thus far Had MSSA in blood cultures earlier this month can switch to IV Ancef to cont for 6 weeks Objective - Vital Signs/Intake and Output Vital Signs (last 24 hours): Temp Pulse Resp BP Pulse Ox 98.9 F 96 H 20 148/78 97 11/13/18 08:00 11/13/18 08:00 11/13/18 08:00 11/13/18 08:00 11/13/18 08:00 Intake and Output: 11/13/18 11/13/18 06:59 18:59 Intake Total 590 Output Total 400 Balance 190 - Medications Medications: Current Medications Acetaminophen (Tylenol 325mg Tab) 650 mg PO Q4H PRN PRN Reason: Fever greater than 101 F Last Admin: 11/11/18 23:37 Dose: 650 mg Al Hydrox/Mg Hydrox/Simethicone (Maalox 30 Ml) 30 ml PO TID PRN PRN Reason: Indigestion / Heartburn Dicyclomine HCl (Bentyl) 10 mg PO Q6 PRN PRN Reason: Muscle spasm Gabapentin (Neurontin) 300 mg PO TID MARJAN Last Admin: 11/13/18 09:14 Dose: 300 mg Guaifenesin/Dextromethorphan (Robitussin Dm) 10 ml PO Q4H PRN PRN Reason: Cough and congestion Hydroxyzine HCl (Atarax) 25 mg PO Q6 PRN PRN Reason: Agitation Cefepime HCl (Maxipime Iv 1 Gm Premix) 1 gm in 50 mls @ 100 mls/hr IVPB Q12H MARJAN; Protocol Last Admin: 11/13/18 11:02 Dose: 100 mls/hr Vancomycin/Sodium Chloride (Vancomycin 1 Gm/Ns 200 Ml) 1 gm in 200 mls @ 133 mls/hr IVPB Q12H MARJAN; Protocol Stop: 11/14/18 20:01 Last Admin: 11/13/18 08:59 Dose: 133 mls/hr Ibuprofen (Motrin Tab) 600 mg PO Q6 PRN PRN Reason: Pain, moderate (4-7) Last Admin: 11/09/18 10:22 Dose: 600 mg Loperamide HCl (Imodium) 2 mg PO Q8 PRN PRN Reason: Diarrhea Last Admin: 11/13/18 09:20 Dose: 2 mg Ondansetron HCl (Zofran Tab) 4 mg PO Q8 PRN PRN Reason: Nausea/Vomiting Trazodone HCl (Desyrel) 50 mg PO HS PRN PRN Reason: Insomnia - Labs Labs: 11/08/18 06:45 11/07/18 06:57 PT 15.0 SECONDS (9.7-12.2) H 11/06/18 09:12 INR 1.4 11/06/18 09:12 APTT 35 SECONDS (21-34) H 11/06/18 09:12 - Constitutional Appears: Well, Non-toxic, Chronically Ill - Head Exam Head Exam: ATRAUMATIC, NORMAL INSPECTION, NORMOCEPHALIC - Eye Exam Eye Exam: EOMI, Normal appearance, PERRL Pupil Exam: NORMAL ACCOMODATION, PERRL - ENT Exam ENT Exam: Mucous Membranes Moist, Normal Exam - Neck Exam Neck Exam: Full ROM, Normal Inspection. absent: Lymphadenopathy - Respiratory Exam Respiratory Exam: Clear to Ausculation Bilateral, NORMAL BREATHING PATTERN - Cardiovascular Exam Cardiovascular Exam: REGULAR RHYTHM, +S1, +S2. absent: Murmur - GI/Abdominal Exam GI & Abdominal Exam: Soft, Normal Bowel Sounds. absent: Tenderness - Rectal Exam Rectal Exam: Deferred - Exam Exam: NORMAL INSPECTION - Extremities Exam Extremities Exam: Full ROM, Normal Capillary Refill, Normal Inspection. absent: Joint Swelling, Pedal Edema - Back Exam Back Exam: NORMAL INSPECTION - Neurological Exam Neurological Exam: Alert, Awake, CN II-XII Intact, Normal Gait, Oriented x3 - Psychiatric Exam Psychiatric exam: Normal Affect, Normal Mood - Skin Skin Exam: Dry, Intact, Normal Color, Warm Assessment and Plan (1) ARF (acute renal failure) Status: Acute (2) Drug abuse and dependence Status: Acute (3) Endocarditis Status: Acute (4) Extremity edema Status: Acute (5) Cellulitis Status: Acute - Assessment and Plan (Free Text) Assessment: iv rx adjusted cont rx for 6-8 weeks
--- NOTE | 2018-11-14 07:38 | CP.PCM.PN ---
Subjective - Date & Time of Evaluation Date of Evaluation: 11/13/18 Time of Evaluation: 11:30 - Subjective Subjective: No cardiac sx's c/o loose stools No fevers or chills Objective - Vital Signs/Intake and Output Vital Signs (last 24 hours): Temp Pulse Resp BP Pulse Ox 99 F 89 20 162/88 H 99 11/14/18 00:00 11/14/18 00:00 11/14/18 00:00 11/14/18 00:00 11/14/18 00:00 Intake and Output: 11/14/18 11/14/18 06:59 18:59 Intake Total 640 Balance 640 - Medications Medications: Current Medications Acetaminophen (Tylenol 325mg Tab) 650 mg PO Q4H PRN PRN Reason: Fever greater than 101 F Last Admin: 11/11/18 23:37 Dose: 650 mg Al Hydrox/Mg Hydrox/Simethicone (Maalox 30 Ml) 30 ml PO TID PRN PRN Reason: Indigestion / Heartburn Dicyclomine HCl (Bentyl) 10 mg PO Q6 PRN PRN Reason: Muscle spasm Gabapentin (Neurontin) 300 mg PO TID MARJAN Last Admin: 11/13/18 17:27 Dose: 300 mg Guaifenesin/Dextromethorphan (Robitussin Dm) 10 ml PO Q4H PRN PRN Reason: Cough and congestion Hydroxyzine HCl (Atarax) 25 mg PO Q6 PRN PRN Reason: Agitation Cefazolin Sodium 2,000 mg/ (Sodium Chloride) 50 mls @ 100 mls/hr IVPB Q8H [facility]; Protocol Last Admin: 11/14/18 03:45 Dose: 100 mls/hr Ibuprofen (Motrin Tab) 600 mg PO Q6 PRN PRN Reason: Pain, moderate (4-7) Last Admin: 11/09/18 10:22 Dose: 600 mg Loperamide HCl (Imodium) 2 mg PO Q8 PRN PRN Reason: Diarrhea Last Admin: 11/13/18 17:31 Dose: 2 mg Ondansetron HCl (Zofran Tab) 4 mg PO Q8 PRN PRN Reason: Nausea/Vomiting Trazodone HCl (Desyrel) 50 mg PO HS PRN PRN Reason: Insomnia - Labs Labs: 11/08/18 06:45 11/07/18 06:57 PT 15.0 SECONDS (9.7-12.2) H 11/06/18 09:12 INR 1.4 11/06/18 09:12 APTT 35 SECONDS (21-34) H 11/06/18 09:12 - Head Exam Head Exam: ATRAUMATIC, NORMAL INSPECTION, NORMOCEPHALIC - Eye Exam Eye Exam: Normal appearance. absent: Scleral icterus - Cardiovascular Exam Cardiovascular Exam: REGULAR RHYTHM, +S1, +S2, Murmur - GI/Abdominal Exam GI & Abdominal Exam: Soft. absent: Tenderness - Extremities Exam Extremities Exam: Pedal Edema - Neurological Exam Neurological Exam: Alert, CN II-XII Intact, Oriented x3 Assessment and Plan - Assessment and Plan (Free Text) Assessment: 48 y/o chronic polysubstance abuser and on methadone: Signed out AMA from [facility] [place] 10/2018 Known chronic TV endocarditis with recent echo this admission : images viewed by me suggesting normal LVEF with mod PULM HTN. CONTINUE ANTIBIOTICS PER ID BLOOD CULTURES ARE NEGATIVE THUS FAR - PATIENT IS SURGICAL RISK FOR RECURRENCE OF IE, UNLESS HE CAN ABSTAIN FROM POLYSUBSTANCE ABUSE - LONG DISCUSSION WITH PATIENT REGARDS RISKS OF SERIOUS CONSEQUENCES FROM POLYSUBSTANCE ABUSE INCLUDING AND CVA: HE UNDERSTANDS THE RISKS, BUT IS NOT EXPRESSING DESIRE TO REFRAIN. CONT SUPPORTIVE CARE/PSYCH INTERVENTIONS. Acute renal failure improving, refusing labs. + HCV serology + loose stools: c-diff w/u
--- NOTE | 2018-11-14 12:07 | CP.PCM.PN ---
Subjective - Date & Time of Evaluation Date of Evaluation: 11/14/18 Time of Evaluation: 12:05 - Subjective Subjective: comfortable no dirhea today taking his iv antbiotics Objective - Vital Signs/Intake and Output Vital Signs (last 24 hours): Temp Pulse Resp BP Pulse Ox 98.9 F 86 20 124/76 98 11/14/18 08:16 11/14/18 08:16 11/14/18 08:16 11/14/18 08:16 11/14/18 08:16 Intake and Output: 11/14/18 11/14/18 06:59 18:59 Intake Total 640 Balance 640 - Medications Medications: Current Medications Acetaminophen (Tylenol 325mg Tab) 650 mg PO Q4H PRN PRN Reason: Fever greater than 101 F Last Admin: 11/11/18 23:37 Dose: 650 mg Al Hydrox/Mg Hydrox/Simethicone (Maalox 30 Ml) 30 ml PO TID PRN PRN Reason: Indigestion / Heartburn Dicyclomine HCl (Bentyl) 10 mg PO Q6 PRN PRN Reason: Muscle spasm Gabapentin (Neurontin) 300 mg PO TID MARJAN Last Admin: 11/14/18 09:23 Dose: 300 mg Guaifenesin/Dextromethorphan (Robitussin Dm) 10 ml PO Q4H PRN PRN Reason: Cough and congestion Hydroxyzine HCl (Atarax) 25 mg PO Q6 PRN PRN Reason: Agitation Cefazolin Sodium 2,000 mg/ (Sodium Chloride) 50 mls @ 100 mls/hr IVPB Q8H [facility]; Protocol Last Admin: 11/14/18 03:45 Dose: 100 mls/hr Ibuprofen (Motrin Tab) 600 mg PO Q6 PRN PRN Reason: Pain, moderate (4-7) Last Admin: 11/09/18 10:22 Dose: 600 mg Loperamide HCl (Imodium) 2 mg PO Q8 PRN PRN Reason: Diarrhea Last Admin: 11/13/18 17:31 Dose: 2 mg Ondansetron HCl (Zofran Tab) 4 mg PO Q8 PRN PRN Reason: Nausea/Vomiting Trazodone HCl (Desyrel) 50 mg PO HS PRN PRN Reason: Insomnia - Labs Labs: 11/08/18 06:45 11/07/18 06:57 PT 15.0 SECONDS (9.7-12.2) H 11/06/18 09:12 INR 1.4 11/06/18 09:12 APTT 35 SECONDS (21-34) H 11/06/18 09:12 - Constitutional Appears: Non-toxic - Head Exam Head Exam: ATRAUMATIC - Eye Exam Eye Exam: Normal appearance Pupil Exam: NORMAL ACCOMODATION - ENT Exam ENT Exam: Mucous Membranes Moist - Neck Exam Neck Exam: Normal Inspection - Respiratory Exam Respiratory Exam: NORMAL BREATHING PATTERN - Cardiovascular Exam Cardiovascular Exam: REGULAR RHYTHM - GI/Abdominal Exam GI & Abdominal Exam: Normal Bowel Sounds - Rectal Exam Rectal Exam: NORMAL INSPECTION - Extremities Exam Extremities Exam: Full ROM - Back Exam Back Exam: NORMAL INSPECTION - Neurological Exam Neurological Exam: Alert, Awake, Oriented x3 - Psychiatric Exam Psychiatric exam: Normal Mood - Skin Skin Exam: Pallor Assessment and Plan - Assessment and Plan (Free Text) Assessment: endocarditis s/p heroin abuse aneamia
--- NOTE | 2018-11-14 20:45 | CP.PCM.PN ---
Subjective - Date & Time of Evaluation Date of Evaluation: 11/14/18 Time of Evaluation: 07:00 - Subjective Subjective: denies fever chills SOB or chest pain 'afebrile cultures reviewed IV antibiotics renewed Objective - Vital Signs/Intake and Output Vital Signs (last 24 hours): Temp Pulse Resp BP Pulse Ox 98 F 88 20 132/78 96 11/14/18 16:00 11/14/18 16:00 11/14/18 16:00 11/14/18 16:00 11/14/18 16:00 Intake and Output: 11/14/18 11/15/18 18:59 06:59 Intake Total 340 Balance 340 - Medications Medications: Current Medications Acetaminophen (Tylenol 325mg Tab) 650 mg PO Q4H PRN PRN Reason: Fever greater than 101 F Last Admin: 11/11/18 23:37 Dose: 650 mg Al Hydrox/Mg Hydrox/Simethicone (Maalox 30 Ml) 30 ml PO TID PRN PRN Reason: Indigestion / Heartburn Dicyclomine HCl (Bentyl) 10 mg PO Q6 PRN PRN Reason: Muscle spasm Gabapentin (Neurontin) 300 mg PO TID MARJAN Last Admin: 11/14/18 17:23 Dose: 300 mg Guaifenesin/Dextromethorphan (Robitussin Dm) 10 ml PO Q4H PRN PRN Reason: Cough and congestion Hydroxyzine HCl (Atarax) 25 mg PO Q6 PRN PRN Reason: Agitation Cefazolin Sodium 2,000 mg/ (Sodium Chloride) 50 mls @ 100 mls/hr IVPB Q8H [facility]; Protocol Last Admin: 11/14/18 19:38 Dose: 100 mls/hr Ibuprofen (Motrin Tab) 600 mg PO Q6 PRN PRN Reason: Pain, moderate (4-7) Last Admin: 11/09/18 10:22 Dose: 600 mg Loperamide HCl (Imodium) 2 mg PO Q8 PRN PRN Reason: Diarrhea Last Admin: 11/13/18 17:31 Dose: 2 mg Ondansetron HCl (Zofran Tab) 4 mg PO Q8 PRN PRN Reason: Nausea/Vomiting Trazodone HCl (Desyrel) 50 mg PO HS PRN PRN Reason: Insomnia - Labs Labs: 11/08/18 06:45 11/07/18 06:57 PT 15.0 SECONDS (9.7-12.2) H 11/06/18 09:12 INR 1.4 11/06/18 09:12 APTT 35 SECONDS (21-34) H 11/06/18 09:12 - Constitutional Appears: No Acute Distress, Chronically Ill - Head Exam Head Exam: ATRAUMATIC, NORMAL INSPECTION, NORMOCEPHALIC - Eye Exam Eye Exam: EOMI, Normal appearance, PERRL Pupil Exam: NORMAL ACCOMODATION, PERRL - ENT Exam ENT Exam: Mucous Membranes Moist, Normal Exam - Neck Exam Neck Exam: Full ROM, Normal Inspection. absent: Lymphadenopathy - Respiratory Exam Respiratory Exam: Clear to Ausculation Bilateral, NORMAL BREATHING PATTERN - Cardiovascular Exam Cardiovascular Exam: REGULAR RHYTHM, +S1, +S2. absent: Murmur - GI/Abdominal Exam GI & Abdominal Exam: Soft, Normal Bowel Sounds. absent: Tenderness - Rectal Exam Rectal Exam: Deferred - Exam Exam: NORMAL INSPECTION - Extremities Exam Extremities Exam: Full ROM, Normal Capillary Refill, Pedal Edema. absent: Joint Swelling - Back Exam Back Exam: NORMAL INSPECTION - Neurological Exam Neurological Exam: Alert, Awake, CN II-XII Intact, Normal Gait, Oriented x3 - Psychiatric Exam Psychiatric exam: Normal Affect, Normal Mood - Skin Skin Exam: Dry, Intact, Normal Color, Warm Assessment and Plan (1) ARF (acute renal failure) Status: Acute (2) Drug abuse and dependence Status: Acute (3) Endocarditis Status: Acute (4) Extremity edema Status: Acute (5) Cellulitis Status: Acute (6) Endocarditis due to methicillin susceptible Staphylococcus aureus (MSSA) Status: Acute (7) Endocarditis of tricuspid valve Status: Acute - Assessment and Plan (Free Text) Assessment: cont IV antibiotics as per Dr Yarbrough no plans for valve replacement surgery
--- NOTE | 2018-11-15 18:17 | CP.PCM.PN ---
Subjective - Date & Time of Evaluation Date of Evaluation: 11/15/18 Time of Evaluation: 09:00 - Subjective Subjective: afeb nad iv rx renewed Objective - Vital Signs/Intake and Output Vital Signs (last 24 hours): Temp Pulse Resp BP Pulse Ox 99 F 68 20 127/68 97 11/15/18 16:00 11/15/18 16:00 11/15/18 16:00 11/15/18 16:00 11/15/18 16:00 Intake and Output: 11/15/18 11/15/18 06:59 18:59 Intake Total 350 340 Balance 350 340 - Medications Medications: Current Medications Acetaminophen (Tylenol 325mg Tab) 650 mg PO Q4H PRN PRN Reason: Fever greater than 101 F Last Admin: 11/11/18 23:37 Dose: 650 mg Al Hydrox/Mg Hydrox/Simethicone (Maalox 30 Ml) 30 ml PO TID PRN PRN Reason: Indigestion / Heartburn Dicyclomine HCl (Bentyl) 10 mg PO Q6 PRN PRN Reason: Muscle spasm Gabapentin (Neurontin) 300 mg PO TID MARJAN Last Admin: 11/15/18 17:28 Dose: 300 mg Guaifenesin/Dextromethorphan (Robitussin Dm) 10 ml PO Q4H PRN PRN Reason: Cough and congestion Hydroxyzine HCl (Atarax) 25 mg PO Q6 PRN PRN Reason: Agitation Cefazolin Sodium 2,000 mg/ (Sodium Chloride) 50 mls @ 100 mls/hr IVPB Q8H [facility]; Protocol Last Admin: 11/15/18 11:51 Dose: 100 mls/hr Ibuprofen (Motrin Tab) 600 mg PO Q6 PRN PRN Reason: Pain, moderate (4-7) Last Admin: 11/09/18 10:22 Dose: 600 mg Loperamide HCl (Imodium) 2 mg PO Q8 PRN PRN Reason: Diarrhea Last Admin: 11/13/18 17:31 Dose: 2 mg Ondansetron HCl (Zofran Tab) 4 mg PO Q8 PRN PRN Reason: Nausea/Vomiting Trazodone HCl (Desyrel) 50 mg PO HS PRN PRN Reason: Insomnia - Labs Labs: 11/08/18 06:45 11/07/18 06:57 PT 15.0 SECONDS (9.7-12.2) H 11/06/18 09:12 INR 1.4 11/06/18 09:12 APTT 35 SECONDS (21-34) H 11/06/18 09:12 - Constitutional Appears: Non-toxic, No Acute Distress, Chronically Ill - Head Exam Head Exam: ATRAUMATIC, NORMAL INSPECTION, NORMOCEPHALIC - Eye Exam Eye Exam: EOMI, Normal appearance, PERRL Pupil Exam: NORMAL ACCOMODATION, PERRL - ENT Exam ENT Exam: Mucous Membranes Moist, Normal Exam - Neck Exam Neck Exam: Full ROM, Normal Inspection. absent: Lymphadenopathy - Respiratory Exam Respiratory Exam: Clear to Ausculation Bilateral, NORMAL BREATHING PATTERN - Cardiovascular Exam Cardiovascular Exam: REGULAR RHYTHM, +S1, +S2. absent: Murmur - GI/Abdominal Exam GI & Abdominal Exam: Soft, Normal Bowel Sounds. absent: Tenderness - Rectal Exam Rectal Exam: Deferred - Exam Speculum exam: NORMAL SPECULUM EXAM Bimanual exam: NORMAL BIMANUAL EXAM - Extremities Exam Extremities Exam: absent: Joint Swelling, Pedal Edema - Back Exam Back Exam: NORMAL INSPECTION - Neurological Exam Neurological Exam: Alert, Awake, CN II-XII Intact, Normal Gait, Oriented x3 - Psychiatric Exam Psychiatric exam: Normal Affect, Normal Mood - Skin Skin Exam: Dry, Intact, Normal Color, Warm Assessment and Plan (1) ARF (acute renal failure) Status: Acute (2) Drug abuse and dependence Status: Acute (3) Endocarditis Status: Acute (4) Extremity edema Status: Acute (5) Cellulitis Status: Acute (6) Endocarditis due to methicillin susceptible Staphylococcus aureus (MSSA) Status: Acute (7) Endocarditis of tricuspid valve Status: Acute - Assessment and Plan (Free Text) Assessment: IV Ancef for Tricuspid endocarditis - MSSA
--- NOTE | 2018-11-15 18:36 | CP.PCM.PN ---
Subjective - Date & Time of Evaluation Date of Evaluation: 11/15/18 Time of Evaluation: 18:34 - Subjective Subjective: pt has no diarehea comfortabe no pain Objective - Vital Signs/Intake and Output Vital Signs (last 24 hours): Temp Pulse Resp BP Pulse Ox 99 F 68 20 127/68 97 11/15/18 16:00 11/15/18 16:00 11/15/18 16:00 11/15/18 16:00 11/15/18 16:00 Intake and Output: 11/15/18 11/15/18 06:59 18:59 Intake Total 350 340 Balance 350 340 - Medications Medications: Current Medications Acetaminophen (Tylenol 325mg Tab) 650 mg PO Q4H PRN PRN Reason: Fever greater than 101 F Last Admin: 11/11/18 23:37 Dose: 650 mg Al Hydrox/Mg Hydrox/Simethicone (Maalox 30 Ml) 30 ml PO TID PRN PRN Reason: Indigestion / Heartburn Dicyclomine HCl (Bentyl) 10 mg PO Q6 PRN PRN Reason: Muscle spasm Gabapentin (Neurontin) 300 mg PO TID MARJAN Last Admin: 11/15/18 17:28 Dose: 300 mg Guaifenesin/Dextromethorphan (Robitussin Dm) 10 ml PO Q4H PRN PRN Reason: Cough and congestion Hydroxyzine HCl (Atarax) 25 mg PO Q6 PRN PRN Reason: Agitation Cefazolin Sodium 2,000 mg/ (Sodium Chloride) 50 mls @ 100 mls/hr IVPB Q8H [facility]; Protocol Last Admin: 11/15/18 11:51 Dose: 100 mls/hr Ibuprofen (Motrin Tab) 600 mg PO Q6 PRN PRN Reason: Pain, moderate (4-7) Last Admin: 11/09/18 10:22 Dose: 600 mg Loperamide HCl (Imodium) 2 mg PO Q8 PRN PRN Reason: Diarrhea Last Admin: 11/13/18 17:31 Dose: 2 mg Ondansetron HCl (Zofran Tab) 4 mg PO Q8 PRN PRN Reason: Nausea/Vomiting Trazodone HCl (Desyrel) 50 mg PO HS PRN PRN Reason: Insomnia - Labs Labs: 11/08/18 06:45 03/20/19 06:57 PT 15.0 SECONDS (9.7-12.2) H 11/06/18 09:12 INR 1.4 11/06/18 09:12 APTT 35 SECONDS (21-34) H 11/06/18 09:12 - Constitutional Appears: Non-toxic - Head Exam Head Exam: ATRAUMATIC - Eye Exam Eye Exam: Normal appearance Pupil Exam: NORMAL ACCOMODATION - ENT Exam ENT Exam: Mucous Membranes Moist - Neck Exam Neck Exam: Full ROM - Respiratory Exam Respiratory Exam: NORMAL BREATHING PATTERN - Cardiovascular Exam Cardiovascular Exam: REGULAR RHYTHM - GI/Abdominal Exam GI & Abdominal Exam: Normal Bowel Sounds - Exam Exam: NORMAL INSPECTION - Extremities Exam Extremities Exam: Full ROM - Back Exam Back Exam: NORMAL INSPECTION - Neurological Exam Neurological Exam: Alert, Awake, Normal Gait, Oriented x3 - Psychiatric Exam Psychiatric exam: Normal Affect - Skin Skin Exam: Normal Color, Pallor Assessment and Plan - Assessment and Plan (Free Text) Assessment: endocarditis hx of heroin abuse leg pain aneamia Plan: cont as per orders
--- NOTE | 2018-11-16 15:28 | CP.PCM.PN ---
Subjective - Date & Time of Evaluation Date of Evaluation: 11/16/18 Time of Evaluation: 15:28 - Subjective Subjective: Events reviewed Objective - Vital Signs/Intake and Output Vital Signs (last 24 hours): Temp Pulse Resp BP Pulse Ox 98.6 F 81 20 115/60 98 11/16/18 07:33 11/16/18 07:33 11/16/18 07:33 11/16/18 07:33 11/16/18 07:33 Intake and Output: 11/16/18 11/16/18 06:59 18:59 Intake Total 640 Balance 640 - Medications Medications: Current Medications Acetaminophen (Tylenol 325mg Tab) 650 mg PO Q4H PRN PRN Reason: Fever greater than 101 F Last Admin: 11/11/18 23:37 Dose: 650 mg Al Hydrox/Mg Hydrox/Simethicone (Maalox 30 Ml) 30 ml PO TID PRN PRN Reason: Indigestion / Heartburn Dicyclomine HCl (Bentyl) 10 mg PO Q6 PRN PRN Reason: Muscle spasm Gabapentin (Neurontin) 300 mg PO TID MARJAN Last Admin: 11/16/18 13:15 Dose: 300 mg Guaifenesin/Dextromethorphan (Robitussin Dm) 10 ml PO Q4H PRN PRN Reason: Cough and congestion Hydroxyzine HCl (Atarax) 25 mg PO Q6 PRN PRN Reason: Agitation Cefazolin Sodium 2,000 mg/ (Sodium Chloride) 100 mls @ 100 mls/hr IVPB Q8H [facility]; Protocol Ibuprofen (Motrin Tab) 600 mg PO Q6 PRN PRN Reason: Pain, moderate (4-7) Last Admin: 11/09/18 10:22 Dose: 600 mg Loperamide HCl (Imodium) 2 mg PO Q8 PRN PRN Reason: Diarrhea Last Admin: 11/13/18 17:31 Dose: 2 mg Ondansetron HCl (Zofran Tab) 4 mg PO Q8 PRN PRN Reason: Nausea/Vomiting Trazodone HCl (Desyrel) 50 mg PO HS PRN PRN Reason: Insomnia - Labs Labs: 11/08/18 06:45 11/07/18 06:57 PT 15.0 SECONDS (9.7-12.2) H 11/06/18 09:12 INR 1.4 11/06/18 09:12 APTT 35 SECONDS (21-34) H 11/06/18 09:12 Assessment and Plan - Assessment and Plan (Free Text) Assessment: - Head Exam Head Exam: ATRAUMATIC, NORMAL INSPECTION, NORMOCEPHALIC - Eye Exam Eye Exam: Normal appearance. absent: Scleral icterus - Cardiovascular Exam Cardiovascular Exam: REGULAR RHYTHM, +S1, +S2, Murmur - GI/Abdominal Exam GI & Abdominal Exam: Soft. absent: Tenderness - Extremities Exam Extremities Exam: Pedal Edema - Neurological Exam Neurological Exam: Alert, CN II-XII Intact, Oriented x3 Assessment and Plan - Assessment and Plan (Free Text) Assessment: 48 y/o chronic polysubstance abuser and on methadone: Signed out AMA from [facility] 10/2018 Known chronic TV endocarditis with recent echo this admission : images viewed by me suggesting normal LVEF with mod PULM HTN. CONTINUE ANTIBIOTICS PER ID BLOOD CULTURES ARE NEGATIVE THUS FAR - PATIENT IS SURGICAL RISK FOR RECURRENCE OF IE, UNLESS HE CAN ABSTAIN FROM POLYSUBSTANCE ABUSE - LONG DISCUSSION WITH PATIENT REGARDS RISKS OF SERIOUS CONSEQUENCES FROM POLYSUBSTANCE ABUSE INCLUDING AND CVA: HE UNDERSTANDS THE RISKS, BUT IS NOT EXPRESSING DESIRE TO REFRAIN. CONT SUPPORTIVE CARE/PSYCH INTERVENTIONS. Acute renal failure improving, refusing labs. + HCV serology + loose stools: c-diff w/u
--- NOTE | 2018-11-16 20:07 | CP.PCM.PN ---
Subjective - Date & Time of Evaluation Date of Evaluation: 11/16/18 Time of Evaluation: 09:00 - Subjective Subjective: afebrile awake alert denies chest pain NAD Objective - Vital Signs/Intake and Output Vital Signs (last 24 hours): Temp Pulse Resp BP Pulse Ox 99.5 F 92 H 20 144/79 98 11/16/18 16:00 11/16/18 16:00 11/16/18 16:00 11/16/18 16:00 11/16/18 16:00 - Medications Medications: Current Medications Acetaminophen (Tylenol 325mg Tab) 650 mg PO Q4H PRN PRN Reason: Fever greater than 101 F Last Admin: 11/11/18 23:37 Dose: 650 mg Al Hydrox/Mg Hydrox/Simethicone (Maalox 30 Ml) 30 ml PO TID PRN PRN Reason: Indigestion / Heartburn Dicyclomine HCl (Bentyl) 10 mg PO Q6 PRN PRN Reason: Muscle spasm Gabapentin (Neurontin) 300 mg PO TID MARJAN Last Admin: 11/16/18 18:19 Dose: 300 mg Guaifenesin/Dextromethorphan (Robitussin Dm) 10 ml PO Q4H PRN PRN Reason: Cough and congestion Hydroxyzine HCl (Atarax) 25 mg PO Q6 PRN PRN Reason: Agitation Cefazolin Sodium 2,000 mg/ (Sodium Chloride) 100 mls @ 100 mls/hr IVPB Q8H [facility]; Protocol Ibuprofen (Motrin Tab) 600 mg PO Q6 PRN PRN Reason: Pain, moderate (4-7) Last Admin: 11/09/18 10:22 Dose: 600 mg Loperamide HCl (Imodium) 2 mg PO Q8 PRN PRN Reason: Diarrhea Last Admin: 11/13/18 17:31 Dose: 2 mg Ondansetron HCl (Zofran Tab) 4 mg PO Q8 PRN PRN Reason: Nausea/Vomiting Trazodone HCl (Desyrel) 50 mg PO HS PRN PRN Reason: Insomnia - Labs Labs: 11/08/18 06:45 11/07/18 06:57 PT 15.0 SECONDS (9.7-12.2) H 11/06/18 09:12 INR 1.4 11/06/18 09:12 APTT 35 SECONDS (21-34) H 11/06/18 09:12 - Constitutional Appears: Non-toxic, No Acute Distress, Chronically Ill - Head Exam Head Exam: ATRAUMATIC, NORMAL INSPECTION, NORMOCEPHALIC - Eye Exam Eye Exam: EOMI, Normal appearance, PERRL Pupil Exam: NORMAL ACCOMODATION, PERRL - ENT Exam ENT Exam: Mucous Membranes Moist, Normal Exam - Neck Exam Neck Exam: Full ROM, Normal Inspection. absent: Lymphadenopathy - Respiratory Exam Respiratory Exam: Clear to Ausculation Bilateral, NORMAL BREATHING PATTERN - Cardiovascular Exam Cardiovascular Exam: REGULAR RHYTHM, +S1, +S2. absent: Murmur - GI/Abdominal Exam GI & Abdominal Exam: Soft, Normal Bowel Sounds. absent: Tenderness - Rectal Exam Rectal Exam: Deferred - Exam Exam: NORMAL INSPECTION - Extremities Exam Extremities Exam: Full ROM, Normal Capillary Refill, Normal Inspection. absent: Joint Swelling, Pedal Edema - Back Exam Back Exam: NORMAL INSPECTION - Neurological Exam Neurological Exam: Alert, Awake, CN II-XII Intact, Normal Gait, Oriented x3 - Psychiatric Exam Psychiatric exam: Normal Affect, Normal Mood - Skin Skin Exam: Dry, Intact, Normal Color, Warm Assessment and Plan (1) ARF (acute renal failure) Status: Acute (2) Drug abuse and dependence Status: Acute (3) Endocarditis Status: Acute (4) Extremity edema Status: Acute (5) Cellulitis Status: Acute (6) Endocarditis due to methicillin susceptible Staphylococcus aureus (MSSA) Status: Acute (7) Endocarditis of tricuspid valve Status: Acute - Assessment and Plan (Free Text) Assessment: MSSA endocarditis Tricuspid valve needs 6 weeks IV rx
--- NOTE | 2018-11-17 11:08 | CP.PCM.PN ---
Subjective - Date & Time of Evaluation Date of Evaluation: 11/17/18 Time of Evaluation: 11:05 - Subjective Subjective: c/o about r inguinal hernia wants to have surgery Objective - Vital Signs/Intake and Output Vital Signs (last 24 hours): Temp Pulse Resp BP Pulse Ox 98.0 F 81 20 135/76 100 11/17/18 08:16 11/17/18 08:16 11/17/18 08:16 11/17/18 08:16 11/17/18 08:16 Intake and Output: 11/17/18 11/17/18 06:59 18:59 Intake Total 300 Output Total 650 Balance -350 - Medications Medications: Current Medications Acetaminophen (Tylenol 325mg Tab) 650 mg PO Q4H PRN PRN Reason: Fever greater than 101 F Last Admin: 11/11/18 23:37 Dose: 650 mg Al Hydrox/Mg Hydrox/Simethicone (Maalox 30 Ml) 30 ml PO TID PRN PRN Reason: Indigestion / Heartburn Dicyclomine HCl (Bentyl) 10 mg PO Q6 PRN PRN Reason: Muscle spasm Gabapentin (Neurontin) 300 mg PO TID MARJAN Last Admin: 11/17/18 09:47 Dose: 300 mg Guaifenesin/Dextromethorphan (Robitussin Dm) 10 ml PO Q4H PRN PRN Reason: Cough and congestion Hydroxyzine HCl (Atarax) 25 mg PO Q6 PRN PRN Reason: Agitation Cefazolin Sodium 2,000 mg/ (Sodium Chloride) 100 mls @ 100 mls/hr IVPB Q8H [facility]; Protocol Last Admin: 11/17/18 05:46 Dose: 100 mls/hr Ibuprofen (Motrin Tab) 600 mg PO Q6 PRN PRN Reason: Pain, moderate (4-7) Last Admin: 11/09/18 10:22 Dose: 600 mg Loperamide HCl (Imodium) 2 mg PO Q8 PRN PRN Reason: Diarrhea Last Admin: 11/13/18 17:31 Dose: 2 mg Ondansetron HCl (Zofran Tab) 4 mg PO Q8 PRN PRN Reason: Nausea/Vomiting Trazodone HCl (Desyrel) 50 mg PO HS PRN PRN Reason: Insomnia - Labs Labs: 11/08/18 06:45 11/07/18 06:57 PT 15.0 SECONDS (9.7-12.2) H 11/06/18 09:12 INR 1.4 11/06/18 09:12 APTT 35 SECONDS (21-34) H 11/06/18 09:12 - Constitutional Appears: Non-toxic - Head Exam Head Exam: ATRAUMATIC - Eye Exam Eye Exam: Normal appearance Pupil Exam: NORMAL ACCOMODATION - ENT Exam ENT Exam: Normal Exam - Neck Exam Neck Exam: Full ROM - Respiratory Exam Respiratory Exam: NORMAL BREATHING PATTERN - Cardiovascular Exam Cardiovascular Exam: REGULAR RHYTHM - GI/Abdominal Exam GI & Abdominal Exam: Normal Bowel Sounds - Rectal Exam Rectal Exam: NORMAL INSPECTION - Exam External exam: NORMAL EXTERNAL EXAM - Extremities Exam Extremities Exam: Normal Inspection - Back Exam Back Exam: NORMAL INSPECTION - Neurological Exam Neurological Exam: Normal Gait - Psychiatric Exam Psychiatric exam: Normal Mood - Skin Skin Exam: Pallor Assessment and Plan - Assessment and Plan (Free Text) Assessment: pt c/o of pain hernia r inguinal wants to have surgery will discuss with cardiologyendocarditis cont treatment Plan: cont treatment
[2018-11-18 08:44] LABS: BASO # 0.1 K/uL (0.0-0.2); BASO % 1.1 % (0.0-2.0); EOS # 0.3 K/uL (0.0-0.7); EOS % 3.5 % (0.0-4.0); HEMOGLOBIN 9.5 g/dL (12.0-18.0); LYMPH # 2.4 K/uL (1.0-4.3); MEAN CELL VOLUME 80.8 fL (80.0-94.0); MEAN CORPUSCULAR HEMOGLOBIN 27.5 pg (27.0-31.0); MEAN PLATELET VOLUME 8.3 fL (7.2-11.7); MONO # 0.8 K/uL (0.0-0.8); NEUT # 4.4 K/uL (1.8-7.0); NEUT % 55.4 % (50.0-75.0); RBC 3.46 Mil/uL (4.40-5.90); RED CELL DISTRIBUTION WIDTH 14.1 % (11.5-14.5); WHITE BLOOD COUNT 7.9 K/uL (4.8-10.8)
[2018-11-18 08:59] LABS: ALB/GLOB RATIO 1.1 (1.0-2.1); ALBUMIN 3.8 g/dL (3.5-5.0); ALT/SGPT 98 U/L (21-72); AST/SGOT 155 U/L (17-59); BLOOD UREA NITROGEN 21 mg/dL (9-20); CALCIUM 9.2 mg/dl (8.6-10.4); GFR NON-AFRICAN AMERICAN > 60
--- NOTE | 2018-11-18 10:26 | CP.PCM.PN ---
Subjective - Date & Time of Evaluation Date of Evaluation: 11/18/18 Time of Evaluation: 10:24 - Subjective Subjective: c/o of pain inguinal hernia wants to have surgery Objective - Vital Signs/Intake and Output Vital Signs (last 24 hours): Temp Pulse Resp BP Pulse Ox 99.2 F 72 20 106/64 97 11/18/18 07:34 11/18/18 07:34 11/18/18 07:34 11/18/18 07:34 11/18/18 07:34 Intake and Output: 11/18/18 11/18/18 06:59 18:59 Intake Total 830 Balance 830 - Medications Medications: Current Medications Acetaminophen (Tylenol 325mg Tab) 650 mg PO Q4H PRN PRN Reason: Fever greater than 101 F Last Admin: 11/11/18 23:37 Dose: 650 mg Al Hydrox/Mg Hydrox/Simethicone (Maalox 30 Ml) 30 ml PO TID PRN PRN Reason: Indigestion / Heartburn Dicyclomine HCl (Bentyl) 10 mg PO Q6 PRN PRN Reason: Muscle spasm Gabapentin (Neurontin) 300 mg PO TID MARJAN Last Admin: 11/18/18 09:43 Dose: 300 mg Guaifenesin/Dextromethorphan (Robitussin Dm) 10 ml PO Q4H PRN PRN Reason: Cough and congestion Hydroxyzine HCl (Atarax) 25 mg PO Q6 PRN PRN Reason: Agitation Cefazolin Sodium 2,000 mg/ (Sodium Chloride) 100 mls @ 100 mls/hr IVPB Q8H [facility]; Protocol Last Admin: 11/18/18 05:44 Dose: 100 mls/hr Ibuprofen (Motrin Tab) 600 mg PO Q6 PRN PRN Reason: Pain, moderate (4-7) Last Admin: 11/09/18 10:22 Dose: 600 mg Loperamide HCl (Imodium) 2 mg PO Q8 PRN PRN Reason: Diarrhea Last Admin: 11/13/18 17:31 Dose: 2 mg Ondansetron HCl (Zofran Tab) 4 mg PO Q8 PRN PRN Reason: Nausea/Vomiting Trazodone HCl (Desyrel) 50 mg PO HS PRN PRN Reason: Insomnia - Labs Labs: 11/18/18 08:15 11/18/18 08:15 PT 15.0 SECONDS (9.7-12.2) H 11/06/18 09:12 INR 1.4 11/06/18 09:12 APTT 35 SECONDS (21-34) H 11/06/18 09:12 - Constitutional Appears: Non-toxic - Head Exam Head Exam: ATRAUMATIC - Eye Exam Eye Exam: Normal appearance Pupil Exam: NORMAL ACCOMODATION - ENT Exam ENT Exam: Mucous Membranes Moist - Neck Exam Neck Exam: Normal Inspection - Respiratory Exam Respiratory Exam: NORMAL BREATHING PATTERN - Cardiovascular Exam Cardiovascular Exam: REGULAR RHYTHM - GI/Abdominal Exam GI & Abdominal Exam: Normal Bowel Sounds - Exam Exam: NORMAL INSPECTION - Extremities Exam Extremities Exam: Full ROM - Back Exam Back Exam: NORMAL INSPECTION - Neurological Exam Neurological Exam: Oriented x3 - Psychiatric Exam Psychiatric exam: Normal Mood - Skin Skin Exam: Pallor Assessment and Plan - Assessment and Plan (Free Text) Assessment: ing hernia endocarditis on iv antibiotics hx of iv drug abuse Plan: awaite cardiology and id clearance if he can have surgery consult davonte fowler
--- NOTE | 2018-11-18 10:57 | CP.PCM.CON ---
History of Present Illness - History of Present Illness History of Present Illness: General Surgery Dr. Noel Consult: Right inguinal hernia 48 y/o M w/ PMHx of MSSA endocarditis and IVDA presented to the ED on 11/06/18 c/o B/L LE edema and pain. Pt left AMA from [facility] earlier in the month where he was being treated for endocarditis. Pt came here to [facility] due to continued/worsening pain in B/L LE. On this admission, pt c/o pain in right inguinal region. Pt reports Hx of painful, right inguinal hernia x4-5mons. Pt states pain occurs w/ increased abd pressure (sitting up, straining). Hernia is easily reducible. Pt denies assoc N/V, abd pain, D/C, dysuria, hesitancy, frequency. PMHx: MSSA endocarditis, IVDA Meds: reveiwed in chart NKDA PSH: JUDY, R prox tib/fib repair (fracture), R PICC SHx: Heroin, cocaine use; 17.5 pack years; denies EtOH FHx: noncontributory Review of Systems - Review of Systems All systems: reviewed and no additional remarkable complaints except (see HPI) Past Patient History - Tetanus Immunizations Tetanus Immunization: Unknown - Past Medical History & Family History Past Medical History?: Yes - Past Social History Smoking Status: Heavy Smoker > 10 Cigarettes Daily - CARDIAC Hx Pacemaker: No - PULMONARY Hx Respiratory Disorders: No - NEUROLOGICAL Hx Neurological Disorder: No - HEENT Hx HEENT Problems: No - RENAL Hx Chronic Kidney Disease: No - ENDOCRINE/METABOLIC Hx Endocrine Disorders: No - HEMATOLOGICAL/ONCOLOGICAL Hx Cancer: No - INTEGUMENTARY Hx Dermatological Problems: No - MUSCULOSKELETAL/RHEUMATOLOGICAL Hx Musculoskeletal Disorders: No Hx Falls: No - GASTROINTESTINAL Hx Gastrointestinal Disorders: No - GENITOURINARY/GYNECOLOGICAL Hx Genitourinary Disorders: No - PSYCHIATRIC Hx Substance Use: Yes (HEROIN, COCAINE : QUIT) - SURGICAL HISTORY Hx Mastectomy: No - ANESTHESIA Hx Anesthesia: Yes Hx Anesthesia Reactions: No Meds Allergies/Adverse Reactions: Allergies Allergy/AdvReac Type Severity Reaction Status Date / Time No Known Allergies Allergy Verified 11/14/14 15:03 - Medications Medications: Current Medications Acetaminophen (Tylenol 325mg Tab) 650 mg PO Q4H PRN PRN Reason: Fever greater than 101 F Last Admin: 11/11/18 23:37 Dose: 650 mg Al Hydrox/Mg Hydrox/Simethicone (Maalox 30 Ml) 30 ml PO TID PRN PRN Reason: Indigestion / Heartburn Dicyclomine HCl (Bentyl) 10 mg PO Q6 PRN PRN Reason: Muscle spasm Gabapentin (Neurontin) 300 mg PO TID ON LICENSE OF [facility] Last Admin: 11/18/18 09:43 Dose: 300 mg Guaifenesin/Dextromethorphan (Robitussin Dm) 10 ml PO Q4H PRN PRN Reason: Cough and congestion Hydroxyzine HCl (Atarax) 25 mg PO Q6 PRN PRN Reason: Agitation Cefazolin Sodium 2,000 mg/ (Sodium Chloride) 100 mls @ 100 mls/hr IVPB Q8H ON LICENSE OF [facility]; Protocol Last Admin: 11/18/18 05:44 Dose: 100 mls/hr Ibuprofen (Motrin Tab) 600 mg PO Q6 PRN PRN Reason: Pain, moderate (4-7) Last Admin: 11/09/18 10:22 Dose: 600 mg Loperamide HCl (Imodium) 2 mg PO Q8 PRN PRN Reason: Diarrhea Last Admin: 11/13/18 17:31 Dose: 2 mg Ondansetron HCl (Zofran Tab) 4 mg PO Q8 PRN PRN Reason: Nausea/Vomiting Trazodone HCl (Desyrel) 50 mg PO HS PRN PRN Reason: Insomnia Physical Exam - Constitutional Appears: Non-toxic, No Acute Distress - Head Exam Head Exam: NORMAL INSPECTION - Eye Exam Eye Exam: Normal appearance - ENT Exam ENT Exam: Mucous Membranes Moist - Respiratory Exam Respiratory Exam: NORMAL BREATHING PATTERN. absent: Accessory Muscle Use, Respiratory Distress - Cardiovascular Exam Cardiovascular Exam: REGULAR RHYTHM. absent: Bradycardia, Tachycardia - GI/Abdominal Exam GI & Abdominal Exam: Soft. absent: Distended, Firm, Guarding, Tenderness - Exam Additional comments: reduced R inguinal hernia - Extremities Exam Extremities exam: Positive for: normal inspection - Neurological Exam Neurological exam: Alert, Oriented x3 - Psychiatric Exam Psychiatric exam: Normal Affect, Normal Mood - Skin Skin Exam: Dry, Intact, Normal Color, Warm Results - Vital Signs Recent Vital Signs: Last Vital Signs Temp 99.2 F 11/18/18 07:34 Pulse 72 11/18/18 07:34 Resp 20 11/18/18 07:34 BP 106/64 11/18/18 07:34 Pulse Ox 97 11/18/18 07:34 - Labs Result Diagrams: 11/18/18 08:15 11/18/18 08:15 Labs: Laboratory Results - last 24 hr 11/18/18 11/18/18 08:15 08:15 WBC 7.9 RBC 3.46 L Hgb 9.5 L Hct 27.9 L MCV 80.8 MCH 27.5 MCHC 34.0 RDW 14.1 Plt Count 457 H D MPV 8.3 Neut % (Auto) 55.4 Lymph % (Auto) 30.0 [place] % (Auto) 10.0 Eos % (Auto) 3.5 Baso % (Auto) 1.1 Neut # (Auto) 4.4 Lymph # (Auto) 2.4 [place] # (Auto) 0.8 Eos # (Auto) 0.3 Baso # (Auto) 0.1 Sodium 137 Potassium 3.9 Chloride 101 Carbon Dioxide 27 Anion Gap 13 BUN 21 H Creatinine 1.0 Est GFR ( Amer) > 60 Est GFR (Non-Af Amer) > 60 Random Glucose 98 Calcium 9.2 Total Bilirubin 0.3 AST 155 H D ALT 98 H D Alkaline Phosphatase 141 H D Total Protein 7.4 Albumin 3.8 Globulin 3.6 Albumin/Globulin Ratio 1.1 - Imaging and Cardiology Chest x-ray Status: Image reviewed by me Echo Status: Report reviewed by me Assessment & Plan - Assessment and Plan (Free Text) Assessment: 48 y/o M w/ MSSA endocarditis and right inguinal hernia Plan: - cont medical management of endocarditis - plan for right inguinal hernia repair once finished Tx for endocarditis - support strap for relief of hernia symptoms - pain management - monitor for obstructive symptoms Pt seen and discussed w/ Dr. Sadie Arzola DO PGY3 Bee Arzola PGY3
--- NOTE | 2018-11-18 15:58 | CP.PCM.PN ---
Subjective - Date & Time of Evaluation Date of Evaluation: 11/18/18 Time of Evaluation: 09:00 - Subjective Subjective: examined on rounds chart reviewed including labs no new complaints IV rx reordered ROS reveals no new complaints HEENT - perrla nc/at Cor- S1S2 reg Lungs diminished breath sounds Abdomen soft BS + non tender Ext - No CCE Neuro No new deficits Objective - Vital Signs/Intake and Output Vital Signs (last 24 hours): Temp Pulse Resp BP Pulse Ox 99.2 F 72 20 106/64 97 11/18/18 07:34 11/18/18 07:34 11/18/18 07:34 11/18/18 07:34 11/18/18 07:34 Intake and Output: 11/18/18 11/18/18 06:59 18:59 Intake Total 830 800 Balance 830 800 - Medications Medications: Current Medications Acetaminophen (Tylenol 325mg Tab) 650 mg PO Q4H PRN PRN Reason: Fever greater than 101 F Last Admin: 11/11/18 23:37 Dose: 650 mg Al Hydrox/Mg Hydrox/Simethicone (Maalox 30 Ml) 30 ml PO TID PRN PRN Reason: Indigestion / Heartburn Dicyclomine HCl (Bentyl) 10 mg PO Q6 PRN PRN Reason: Muscle spasm Gabapentin (Neurontin) 300 mg PO TID [facility] Last Admin: 11/18/18 13:52 Dose: 300 mg Guaifenesin/Dextromethorphan (Robitussin Dm) 10 ml PO Q4H PRN PRN Reason: Cough and congestion Hydroxyzine HCl (Atarax) 25 mg PO Q6 PRN PRN Reason: Agitation Cefazolin Sodium 2,000 mg/ (Sodium Chloride) 100 mls @ 100 mls/hr IVPB Q8H [facility]; Protocol Last Admin: 11/18/18 13:41 Dose: 100 mls/hr Ibuprofen (Motrin Tab) 600 mg PO Q6 PRN PRN Reason: Pain, moderate (4-7) Last Admin: 11/09/18 10:22 Dose: 600 mg Loperamide HCl (Imodium) 2 mg PO Q8 PRN PRN Reason: Diarrhea Last Admin: 11/13/18 17:31 Dose: 2 mg Ondansetron HCl (Zofran Tab) 4 mg PO Q8 PRN PRN Reason: Nausea/Vomiting Trazodone HCl (Desyrel) 50 mg PO HS PRN PRN Reason: Insomnia - Labs Labs: 11/18/18 08:15 11/18/18 08:15 PT 15.0 SECONDS (9.7-12.2) H 11/06/18 09:12 INR 1.4 11/06/18 09:12 APTT 35 SECONDS (21-34) H 11/06/18 09:12 - Constitutional Appears: Well - Head Exam Head Exam: ATRAUMATIC, NORMAL INSPECTION, NORMOCEPHALIC - Eye Exam Eye Exam: EOMI, Normal appearance, PERRL Pupil Exam: NORMAL ACCOMODATION, PERRL - ENT Exam ENT Exam: Mucous Membranes Moist, Normal Exam - Neck Exam Neck Exam: Full ROM, Normal Inspection. absent: Lymphadenopathy - Respiratory Exam Respiratory Exam: Clear to Ausculation Bilateral, NORMAL BREATHING PATTERN - Cardiovascular Exam Cardiovascular Exam: REGULAR RHYTHM, +S1, +S2. absent: Murmur - GI/Abdominal Exam GI & Abdominal Exam: Soft, Normal Bowel Sounds. absent: Tenderness - Rectal Exam Rectal Exam: Deferred - Exam Exam: NORMAL INSPECTION External exam: Erythema - Extremities Exam Extremities Exam: Full ROM, Normal Capillary Refill, Normal Inspection. absent: Joint Swelling, Pedal Edema - Back Exam Back Exam: NORMAL INSPECTION - Neurological Exam Neurological Exam: Alert, Awake, CN II-XII Intact, Normal Gait, Oriented x3 - Psychiatric Exam Psychiatric exam: Normal Affect, Normal Mood - Skin Skin Exam: Dry, Intact, Normal Color, Warm Assessment and Plan (1) ARF (acute renal failure) Status: Acute (2) Drug abuse and dependence Status: Acute (3) Endocarditis Status: Acute (4) Extremity edema Status: Acute (5) Cellulitis Status: Acute (6) Endocarditis due to methicillin susceptible Staphylococcus aureus (MSSA) Status: Acute (7) Endocarditis of tricuspid valve Status: Acute - Assessment and Plan (Free Text) Assessment: improving slowly not a surgical candidate at this time IV rx renewed
--- NOTE | 2018-11-19 12:35 | CP.PCM.PN ---
Subjective - Date & Time of Evaluation Date of Evaluation: 11/19/18 Time of Evaluation: 08:00 - Subjective Subjective: IV rx renewed has MSSA endocarditis- original cultures done [place] [facility] [place] ( he signed out ) Objective - Vital Signs/Intake and Output Vital Signs (last 24 hours): Temp Pulse Resp BP Pulse Ox 98.4 F 93 H 20 117/74 99 11/19/18 05:00 11/19/18 05:00 11/19/18 05:00 11/19/18 05:00 11/19/18 05:00 Intake and Output: 11/19/18 11/19/18 06:59 18:59 Intake Total 640 Balance 640 - Medications Medications: Current Medications Acetaminophen (Tylenol 325mg Tab) 650 mg PO Q4H PRN PRN Reason: Fever greater than 101 F Last Admin: 11/11/18 23:37 Dose: 650 mg Al Hydrox/Mg Hydrox/Simethicone (Maalox 30 Ml) 30 ml PO TID PRN PRN Reason: Indigestion / Heartburn Dicyclomine HCl (Bentyl) 10 mg PO Q6 PRN PRN Reason: Muscle spasm Gabapentin (Neurontin) 300 mg PO TID [facility] Last Admin: 11/19/18 11:52 Dose: Not Given Guaifenesin/Dextromethorphan (Robitussin Dm) 10 ml PO Q4H PRN PRN Reason: Cough and congestion Hydroxyzine HCl (Atarax) 25 mg PO Q6 PRN PRN Reason: Agitation Cefazolin Sodium 2,000 mg/ (Sodium Chloride) 100 mls @ 100 mls/hr IVPB Q8H [facility]; Protocol Last Admin: 11/19/18 05:15 Dose: 100 mls/hr Ibuprofen (Motrin Tab) 600 mg PO Q6 PRN PRN Reason: Pain, moderate (4-7) Last Admin: 11/09/18 10:22 Dose: 600 mg Loperamide HCl (Imodium) 2 mg PO Q8 PRN PRN Reason: Diarrhea Last Admin: 11/13/18 17:31 Dose: 2 mg Ondansetron HCl (Zofran Tab) 4 mg PO Q8 PRN PRN Reason: Nausea/Vomiting Trazodone HCl (Desyrel) 50 mg PO HS PRN PRN Reason: Insomnia - Labs Labs: 11/18/18 08:15 11/18/18 08:15 PT 15.0 SECONDS (9.7-12.2) H 11/06/18 09:12 INR 1.4 11/06/18 09:12 APTT 35 SECONDS (21-34) H 11/06/18 09:12 - Constitutional Appears: Non-toxic, No Acute Distress, Chronically Ill - Head Exam Head Exam: ATRAUMATIC, NORMAL INSPECTION, NORMOCEPHALIC - Eye Exam Eye Exam: EOMI, Normal appearance, PERRL Pupil Exam: NORMAL ACCOMODATION, PERRL - ENT Exam ENT Exam: Mucous Membranes Moist, Normal Exam - Neck Exam Neck Exam: Full ROM, Normal Inspection. absent: Lymphadenopathy - Respiratory Exam Respiratory Exam: Clear to Ausculation Bilateral, NORMAL BREATHING PATTERN - Cardiovascular Exam Cardiovascular Exam: REGULAR RHYTHM, +S1, +S2. absent: Murmur - GI/Abdominal Exam GI & Abdominal Exam: Soft, Normal Bowel Sounds. absent: Tenderness - Rectal Exam Rectal Exam: Deferred - Exam Exam: NORMAL INSPECTION - Extremities Exam Extremities Exam: Full ROM, Normal Capillary Refill, Normal Inspection. 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
--- NOTE | 2018-11-19 18:16 | CP.PCM.PN ---
Subjective - Date & Time of Evaluation Date of Evaluation: 11/19/18 Time of Evaluation: 18:14 - Subjective Subjective: pt has paiun r groin rih seen for surgery will hold untill finish treatment for endocarditis Objective - Vital Signs/Intake and Output Vital Signs (last 24 hours): Temp Pulse Resp BP Pulse Ox 100.2 F H 96 H 20 150/82 96 11/19/18 16:00 11/19/18 16:00 11/19/18 16:00 11/19/18 16:00 11/19/18 16:00 Intake and Output: 11/19/18 11/19/18 06:59 18:59 Intake Total 640 600 Balance 640 600 - Medications Medications: Current Medications Acetaminophen (Tylenol 325mg Tab) 650 mg PO Q4H PRN PRN Reason: Fever greater than 101 F Last Admin: 11/11/18 23:37 Dose: 650 mg Al Hydrox/Mg Hydrox/Simethicone (Maalox 30 Ml) 30 ml PO TID PRN PRN Reason: Indigestion / Heartburn Dicyclomine HCl (Bentyl) 10 mg PO Q6 PRN PRN Reason: Muscle spasm Gabapentin (Neurontin) 300 mg PO TID [facility] Last Admin: 11/19/18 17:06 Dose: 300 mg Guaifenesin/Dextromethorphan (Robitussin Dm) 10 ml PO Q4H PRN PRN Reason: Cough and congestion Hydroxyzine HCl (Atarax) 25 mg PO Q6 PRN PRN Reason: Agitation Cefazolin Sodium 2,000 mg/ (Sodium Chloride) 100 mls @ 100 mls/hr IVPB Q8H [facility]; Protocol Last Admin: 11/19/18 14:05 Dose: 100 mls/hr Ibuprofen (Motrin Tab) 600 mg PO Q6 PRN PRN Reason: Pain, moderate (4-7) Last Admin: 11/09/18 10:22 Dose: 600 mg Loperamide HCl (Imodium) 2 mg PO Q8 PRN PRN Reason: Diarrhea Last Admin: 11/13/18 17:31 Dose: 2 mg Ondansetron HCl (Zofran Tab) 4 mg PO Q8 PRN PRN Reason: Nausea/Vomiting Trazodone HCl (Desyrel) 50 mg PO HS PRN PRN Reason: Insomnia - Labs Labs: 11/18/18 08:15 11/18/18 08:15 PT 15.0 SECONDS (9.7-12.2) H 11/06/18 09:12 INR 1.4 11/06/18 09:12 APTT 35 SECONDS (21-34) H 11/06/18 09:12 - Constitutional Appears: Non-toxic - Head Exam Head Exam: ATRAUMATIC - Eye Exam Eye Exam: Normal appearance Pupil Exam: NORMAL ACCOMODATION - ENT Exam ENT Exam: TM's Normal Bilaterally - Neck Exam Neck Exam: Full ROM - Respiratory Exam Respiratory Exam: Clear to Ausculation Bilateral - Cardiovascular Exam Cardiovascular Exam: REGULAR RHYTHM - GI/Abdominal Exam GI & Abdominal Exam: Normal Bowel Sounds Additional comments: hernia r ing - Exam Exam: NORMAL INSPECTION - Extremities Exam Extremities Exam: Normal Capillary Refill - Back Exam Back Exam: NORMAL INSPECTION - Neurological Exam Neurological Exam: Normal Gait, Oriented x3 - Skin Skin Exam: Normal Color
--- NOTE | 2018-11-20 01:51 | CP.PCM.PN ---
Subjective - Date & Time of Evaluation Date of Evaluation: 11/19/18 Time of Evaluation: 10:30 - Subjective Subjective: No new complaints No fevers or chills Diarrhea resolved No SOB, N/V Objective - Vital Signs/Intake and Output Vital Signs (last 24 hours): Temp Pulse Resp BP Pulse Ox 100.2 F H 96 H 20 150/82 96 11/19/18 16:00 11/19/18 16:00 11/19/18 16:00 11/19/18 16:00 11/19/18 16:00 Intake and Output: 11/19/18 11/20/18 18:59 06:59 Intake Total 600 400 Output Total 600 Balance 600 -200 - Medications Medications: Current Medications Acetaminophen (Tylenol 325mg Tab) 650 mg PO Q4H PRN PRN Reason: Fever greater than 101 F Last Admin: 11/11/18 23:37 Dose: 650 mg Al Hydrox/Mg Hydrox/Simethicone (Maalox 30 Ml) 30 ml PO TID PRN PRN Reason: Indigestion / Heartburn Dicyclomine HCl (Bentyl) 10 mg PO Q6 PRN PRN Reason: Muscle spasm Gabapentin (Neurontin) 300 mg PO TID [facility]JAN Last Admin: 11/19/18 17:06 Dose: 300 mg Guaifenesin/Dextromethorphan (Robitussin Dm) 10 ml PO Q4H PRN PRN Reason: Cough and congestion Hydroxyzine HCl (Atarax) 25 mg PO Q6 PRN PRN Reason: Agitation Cefazolin Sodium 2,000 mg/ (Sodium Chloride) 100 mls @ 100 mls/hr IVPB Q8H [facility]; Protocol Last Admin: 11/19/18 21:22 Dose: 100 mls/hr Ibuprofen (Motrin Tab) 600 mg PO Q6 PRN PRN Reason: Pain, moderate (4-7) Last Admin: 11/09/18 10:22 Dose: 600 mg Loperamide HCl (Imodium) 2 mg PO Q8 PRN PRN Reason: Diarrhea Last Admin: 11/13/18 17:31 Dose: 2 mg Ondansetron HCl (Zofran Tab) 4 mg PO Q8 PRN PRN Reason: Nausea/Vomiting Trazodone HCl (Desyrel) 50 mg PO HS PRN PRN Reason: Insomnia - Labs Labs: 11/18/18 08:15 11/18/18 08:15 PT 15.0 SECONDS (9.7-12.2) H 11/06/18 09:12 INR 1.4 11/06/18 09:12 APTT 35 SECONDS (21-34) H 11/06/18 09:12 - Constitutional Appears: No Acute Distress - Head Exam Head Exam: ATRAUMATIC, NORMAL INSPECTION, NORMOCEPHALIC - Eye Exam Eye Exam: EOMI, Normal appearance. absent: Scleral icterus - ENT Exam ENT Exam: Mucous Membranes Moist - Neck Exam Neck Exam: Full ROM, Normal Inspection. absent: Thyromegaly - Respiratory Exam Respiratory Exam: Clear to Ausculation Bilateral. absent: Rhonchi, Wheezes - Cardiovascular Exam Cardiovascular Exam: REGULAR RHYTHM, +S1, +S2. absent: Murmur - GI/Abdominal Exam GI & Abdominal Exam: Soft, Normal Bowel Sounds. absent: Tenderness - Extremities Exam Extremities Exam: absent: Calf Tenderness, Pedal Edema - Neurological Exam Neurological Exam: Alert, Awake, Oriented x3 - Psychiatric Exam Psychiatric exam: Normal Affect, Normal Mood - Skin Skin Exam: Normal Color, Warm. absent: Rash Assessment and Plan - Assessment and Plan (Free Text) Assessment: 48 y/o chronic polysubstance abuser and on methadone: Signed out AMA from [facility] [place] 10/2018 Known chronic TV endocarditis with recent echo this admission : images viewed by me suggesting normal LVEF with mod PULM HTN. CONTINUE ANTIBIOTICS PER ID BLOOD CULTURES ARE NEGATIVE THUS FAR - PATIENT IS SURGICAL RISK FOR RECURRENCE OF IE, UNLESS HE CAN ABSTAIN FROM POLYSUBSTANCE ABUSE - In addition: i would avoid any elective non-urgent surgeries i.e hernia until completion of ABX and repeat imaging - LONG DISCUSSION WITH PATIENT REGARDS RISKS OF SERIOUS CONSEQUENCES FROM POLYSUBSTANCE ABUSE INCLUDING AND CVA: HE UNDERSTANDS THE RISKS, BUT IS NOT EXPRESSING DESIRE TO REFRAIN. CONT SUPPORTIVE CARE/PSYCH INTERVENTIONS. Transaminitis noted: ? Gi eval
--- NOTE | 2018-11-20 10:32 | CP.PCM.PN ---
Subjective - Date & Time of Evaluation Date of Evaluation: 11/20/18 Time of Evaluation: 10:29 - Subjective Subjective: pt has fever today abdominal pain coughing alot Objective - Vital Signs/Intake and Output Vital Signs (last 24 hours): Temp Pulse Resp BP Pulse Ox 98.1 F 91 H 20 144/65 97 11/20/18 07:52 11/20/18 07:52 11/20/18 07:52 11/20/18 07:52 11/20/18 07:52 Intake and Output: 11/20/18 11/20/18 06:59 18:59 Intake Total 400 Output Total 600 Balance -200 - Medications Medications: Current Medications Acetaminophen (Tylenol 325mg Tab) 650 mg PO Q4H PRN PRN Reason: Fever greater than 101 F Last Admin: 11/11/18 23:37 Dose: 650 mg Al Hydrox/Mg Hydrox/Simethicone (Maalox 30 Ml) 30 ml PO TID PRN PRN Reason: Indigestion / Heartburn Dicyclomine HCl (Bentyl) 10 mg PO Q6 PRN PRN Reason: Muscle spasm Gabapentin (Neurontin) 300 mg PO TID [facility] Last Admin: 11/20/18 09:43 Dose: 300 mg Guaifenesin/Dextromethorphan (Robitussin Dm) 10 ml PO QID [facility] Hydroxyzine HCl (Atarax) 25 mg PO Q6 PRN PRN Reason: Agitation Cefazolin Sodium 2,000 mg/ (Sodium Chloride) 100 mls @ 100 mls/hr IVPB Q8H [facility]; Protocol Last Admin: 11/20/18 05:06 Dose: 100 mls/hr Ibuprofen (Motrin Tab) 600 mg PO Q6 PRN PRN Reason: Pain, moderate (4-7) Last Admin: 11/09/18 10:22 Dose: 600 mg Loperamide HCl (Imodium) 2 mg PO Q8 PRN PRN Reason: Diarrhea Last Admin: 11/13/18 17:31 Dose: 2 mg Ondansetron HCl (Zofran Tab) 4 mg PO Q8 PRN PRN Reason: Nausea/Vomiting Pantoprazole Sodium (Protonix Ec Tab) 40 mg PO DAILY [facility] Trazodone HCl (Desyrel) 50 mg PO HS PRN PRN Reason: Insomnia - Labs Labs: 11/18/18 08:15 11/18/18 08:15 PT 15.0 SECONDS (9.7-12.2) H 11/06/18 09:12 INR 1.4 11/06/18 09:12 APTT 35 SECONDS (21-34) H 11/06/18 09:12 - Constitutional Appears: In Acute Distress - Head Exam Head Exam: ATRAUMATIC - Eye Exam Eye Exam: Normal appearance - ENT Exam ENT Exam: Normal Exam - Neck Exam Neck Exam: Full ROM - Respiratory Exam Respiratory Exam: Rales - GI/Abdominal Exam GI & Abdominal Exam: Tenderness - Exam Exam: NORMAL INSPECTION - Extremities Exam Extremities Exam: Full ROM - Back Exam Back Exam: NORMAL INSPECTION - Neurological Exam Neurological Exam: Awake - Psychiatric Exam Psychiatric exam: Normal Affect - Skin Skin Exam: Dry, Pallor Assessment and Plan - Assessment and Plan (Free Text) Assessment: ac abd pain ac bronchitis fever endocarditis Plan: add cough med chest x ray
[2018-11-20] MEDS: Pantoprazole 40 mg EC Tab PO SCH (10:42)
[2018-11-20] MEDS: guaiFENesin DM 200 mg-20 mg/10 ml UD PO SCH ×3 (13:25→21:22)
--- NOTE | 2018-11-20 13:38 | RAD ---
Date of service: 11/20/2018 HISTORY: Acute bronchitis and fever COMPARISON: Chest 11/09/2018. TECHNIQUE: Chest PA and lateral views FINDINGS: No change right-sided PICC line with tip in the SVC. LUNGS: There are patchy opacities seen in the left lower lobe as well as in the right middle lobe and right lower lobe hernandez which may represent areas of atelectasis and or infiltrates should be.. PLEURA: No significant pleural effusion identified. No pneumothorax apparent. CARDIOVASCULAR: No aortic atherosclerotic calcification present. Normal cardiac size. No pulmonary vascular congestion. OSSEOUS STRUCTURES: No significant abnormalities. VISUALIZED UPPER ABDOMEN: Normal. OTHER FINDINGS: None. IMPRESSION: Patchy opacities in the left lower lobe well as right middle lobe and to a lesser degree right lung base which may represent atelectasis and or infiltrates.
--- NOTE | 2018-11-20 21:41 | CP.PCM.PN ---
Subjective - Date & Time of Evaluation Date of Evaluation: 11/20/18 Time of Evaluation: 09:00 - Subjective Subjective: not feeling well may be throwing septic emboli- new infiltrates in lungs cardio on board may be failing medical rx will reculture poor prognosis Objective - Vital Signs/Intake and Output Vital Signs (last 24 hours): Temp Pulse Resp BP Pulse Ox 100 F H 96 H 20 128/76 98 11/20/18 16:00 11/20/18 16:00 11/20/18 16:00 11/20/18 16:00 11/20/18 16:00 Intake and Output: 11/20/18 11/21/18 18:59 06:59 Intake Total 340 Balance 340 - Medications Medications: Current Medications Acetaminophen (Tylenol 325mg Tab) 650 mg PO Q4H PRN PRN Reason: Fever greater than 101 F Last Admin: 11/11/18 23:37 Dose: 650 mg Al Hydrox/Mg Hydrox/Simethicone (Maalox 30 Ml) 30 ml PO TID PRN PRN Reason: Indigestion / Heartburn Dicyclomine HCl (Bentyl) 10 mg PO Q6 PRN PRN Reason: Muscle spasm Gabapentin (Neurontin) 300 mg PO TID [facility] Last Admin: 11/20/18 17:07 Dose: 300 mg Guaifenesin/Dextromethorphan (Robitussin Dm) 10 ml PO QID [facility] Last Admin: 11/20/18 21:22 Dose: 10 ml Hydroxyzine HCl (Atarax) 25 mg PO Q6 PRN PRN Reason: Agitation Cefazolin Sodium 2,000 mg/ (Sodium Chloride) 100 mls @ 100 mls/hr IVPB Q8H [facility]; Protocol Last Admin: 11/20/18 21:16 Dose: 100 mls/hr Ibuprofen (Motrin Tab) 600 mg PO Q6 PRN PRN Reason: Pain, moderate (4-7) Last Admin: 11/09/18 10:22 Dose: 600 mg Loperamide HCl (Imodium) 2 mg PO Q8 PRN PRN Reason: Diarrhea Last Admin: 11/13/18 17:31 Dose: 2 mg Ondansetron HCl (Zofran Tab) 4 mg PO Q8 PRN PRN Reason: Nausea/Vomiting Pantoprazole Sodium (Protonix Ec Tab) 40 mg PO DAILY [facility] Last Admin: 11/20/18 10:42 Dose: 40 mg Trazodone HCl (Desyrel) 50 mg PO HS PRN PRN Reason: Insomnia - Labs Labs: 11/18/18 08:15 11/18/18 08:15 PT 15.0 SECONDS (9.7-12.2) H 11/06/18 09:12 INR 1.4 11/06/18 09:12 APTT 35 SECONDS (21-34) H 11/06/18 09:12 - Constitutional Appears: Toxic, Chronically Ill - Head Exam Head Exam: NORMOCEPHALIC - Eye Exam Eye Exam: absent: Scleral icterus - ENT Exam ENT Exam: Mucous Membranes Dry (O) - Neck Exam Neck Exam: absent: Lymphadenopathy - Respiratory Exam Respiratory Exam: Decreased Breath Sounds - Cardiovascular Exam Cardiovascular Exam: REGULAR RHYTHM - GI/Abdominal Exam GI & Abdominal Exam: Diminished Bowel Sounds - Rectal Exam Rectal Exam: Deferred - Extremities Exam Extremities Exam: absent: Calf Tenderness - Back Exam Back Exam: absent: paraspinal tenderness - Neurological Exam Neurological Exam: Alert, Awake Assessment and Plan (1) ARF (acute renal failure) Status: Acute (2) Drug abuse and dependence Status: Acute (3) Endocarditis Status: Acute (4) Extremity edema Status: Acute (5) Cellulitis Status: Acute (6) Endocarditis due to methicillin susceptible Staphylococcus aureus (MSSA) Status: Acute (7) Endocarditis of tricuspid valve Status: Chronic - Assessment and Plan (Free Text) Assessment: not feeling well may be throwing septic emboli- new infiltrates in lungs cardio on board may be failing medical rx will reculture poor prognosis
[2018-11-21] MEDS: guaiFENesin DM 200 mg-20 mg/10 ml UD PO SCH ×4 (10:30→21:24)
[2018-11-21] MEDS: Pantoprazole 40 mg EC Tab PO SCH (10:30)
--- NOTE | 2018-11-21 10:58 | CP.PCM.PN ---
Subjective - Date & Time of Evaluation Date of Evaluation: 11/21/18 Time of Evaluation: 10:56 - Subjective Subjective: uncomfotable pain lower abdomen less cough Objective - Vital Signs/Intake and Output Vital Signs (last 24 hours): Temp Pulse Resp BP Pulse Ox 98.5 F 85 20 111/68 95 11/21/18 07:00 11/21/18 07:00 11/21/18 07:00 11/21/18 07:00 11/21/18 07:00 Intake and Output: 11/21/18 11/21/18 06:59 18:59 Intake Total 900 Output Total 700 Balance 200 - Medications Medications: Current Medications Acetaminophen (Tylenol 325mg Tab) 650 mg PO Q4H PRN PRN Reason: Fever greater than 101 F Last Admin: 11/11/18 23:37 Dose: 650 mg Al Hydrox/Mg Hydrox/Simethicone (Maalox 30 Ml) 30 ml PO TID PRN PRN Reason: Indigestion / Heartburn Dicyclomine HCl (Bentyl) 10 mg PO Q6 PRN PRN Reason: Muscle spasm Gabapentin (Neurontin) 300 mg PO TID [facility] Last Admin: 11/21/18 10:30 Dose: 300 mg Guaifenesin/Dextromethorphan (Robitussin Dm) 10 ml PO QID [facility] Last Admin: 11/21/18 10:30 Dose: 10 ml Hydroxyzine HCl (Atarax) 25 mg PO Q6 PRN PRN Reason: Agitation Cefazolin Sodium 2,000 mg/ (Sodium Chloride) 100 mls @ 100 mls/hr IVPB Q8H [facility]; Protocol Last Admin: 11/21/18 05:39 Dose: 100 mls/hr Daptomycin 400 mg/ Sodium (Chloride) 100 mls @ 100 mls/hr IV Q24H [facility]; Protocol Stop: 11/25/18 21:46 Last Admin: 11/20/18 22:23 Dose: 100 mls/hr Ibuprofen (Motrin Tab) 600 mg PO Q6 PRN PRN Reason: Pain, moderate (4-7) Last Admin: 11/09/18 10:22 Dose: 600 mg Loperamide HCl (Imodium) 2 mg PO Q8 PRN PRN Reason: Diarrhea Last Admin: 11/13/18 17:31 Dose: 2 mg Ondansetron HCl (Zofran Tab) 4 mg PO Q8 PRN PRN Reason: Nausea/Vomiting Pantoprazole Sodium (Protonix Ec Tab) 40 mg PO DAILY [facility] Last Admin: 11/21/18 10:30 Dose: 40 mg Trazodone HCl (Desyrel) 50 mg PO HS PRN PRN Reason: Insomnia - Labs Labs: 11/18/18 08:15 11/18/18 08:15 PT 15.0 SECONDS (9.7-12.2) H 11/06/18 09:12 INR 1.4 11/06/18 09:12 APTT 35 SECONDS (21-34) H 11/06/18 09:12 - Constitutional Appears: In Acute Distress - Head Exam Head Exam: ATRAUMATIC - Eye Exam Eye Exam: Normal appearance Pupil Exam: NORMAL ACCOMODATION - ENT Exam ENT Exam: Mucous Membranes Moist - Neck Exam Neck Exam: Normal Inspection - Respiratory Exam Respiratory Exam: Rales - Cardiovascular Exam Cardiovascular Exam: REGULAR RHYTHM - GI/Abdominal Exam GI & Abdominal Exam: Tenderness - Rectal Exam Rectal Exam: NORMAL INSPECTION - Neurological Exam Neurological Exam: Alert, Oriented x3 - Psychiatric Exam Psychiatric exam: Normal Mood - Skin Skin Exam: Normal Color Assessment and Plan - Assessment and Plan (Free Text) Assessment: lower abd pain ac pnumonia endocarditis Plan: continu as ordered
[2018-11-21 13:21] LABS: URINE BACTERIA RARE (<OCC); URINE BILIRUBIN NEGATIVE (NEGATIVE); URINE BLOOD 3+ (NEGATIVE); URINE CLARITY Clear (Clear); URINE COLOR Yellow (YELLOW); URINE GLUCOSE (UA) NORMAL (Normal); URINE LEUKOCYTE ESTERASE NEG Leu/uL (Negative); URINE PROTEIN NEGATIVE (NEGATIVE); URINE UROBILINOGEN NORMAL mg/dL (0.2-1.0)
--- NOTE | 2018-11-21 16:11 | CP.PCM.PN ---
Subjective - Date & Time of Evaluation Date of Evaluation: 11/21/18 Time of Evaluation: 16:10 - Subjective Subjective: Events reviewed Objective - Vital Signs/Intake and Output Vital Signs (last 24 hours): Temp Pulse Resp BP Pulse Ox 98.5 F 85 20 111/68 95 11/21/18 07:00 11/21/18 07:00 11/21/18 07:00 11/21/18 07:00 11/21/18 07:00 Intake and Output: 11/21/18 11/21/18 06:59 18:59 Intake Total 900 340 Output Total 700 Balance 200 340 - Medications Medications: Current Medications Acetaminophen (Tylenol 325mg Tab) 650 mg PO Q4H PRN PRN Reason: Fever greater than 101 F Last Admin: 11/11/18 23:37 Dose: 650 mg Al Hydrox/Mg Hydrox/Simethicone (Maalox 30 Ml) 30 ml PO TID PRN PRN Reason: Indigestion / Heartburn Dicyclomine HCl (Bentyl) 10 mg PO Q6 PRN PRN Reason: Muscle spasm Gabapentin (Neurontin) 300 mg PO TID [facility] Last Admin: 11/21/18 14:27 Dose: 300 mg Guaifenesin/Dextromethorphan (Robitussin Dm) 10 ml PO QID [facility] Last Admin: 11/21/18 14:27 Dose: 10 ml Hydroxyzine HCl (Atarax) 25 mg PO Q6 PRN PRN Reason: Agitation Cefazolin Sodium 2,000 mg/ (Sodium Chloride) 100 mls @ 100 mls/hr IVPB Q8H [facility]; Protocol Last Admin: 11/21/18 14:22 Dose: 100 mls/hr Telavancin 750 mg/ Sodium (Chloride) 100 mls @ 100 mls/hr IVPB Q24H [facility]; Protocol Ibuprofen (Motrin Tab) 600 mg PO Q6 PRN PRN Reason: Pain, moderate (4-7) Last Admin: 11/09/18 10:22 Dose: 600 mg Loperamide HCl (Imodium) 2 mg PO Q8 PRN PRN Reason: Diarrhea Last Admin: 11/13/18 17:31 Dose: 2 mg Ondansetron HCl (Zofran Tab) 4 mg PO Q8 PRN PRN Reason: Nausea/Vomiting Pantoprazole Sodium (Protonix Ec Tab) 40 mg PO DAILY [facility] Last Admin: 11/21/18 10:30 Dose: 40 mg Trazodone HCl (Desyrel) 50 mg PO HS PRN PRN Reason: Insomnia - Labs Labs: 11/18/18 08:15 11/18/18 08:15 PT 15.0 SECONDS (9.7-12.2) H 11/06/18 09:12 INR 1.4 11/06/18 09:12 APTT 35 SECONDS (21-34) H 11/06/18 09:12 Assessment and Plan - Assessment and Plan (Free Text) Assessment: - Constitutional Appears: No Acute Distress - Head Exam Head Exam: ATRAUMATIC, NORMAL INSPECTION, NORMOCEPHALIC - Eye Exam Eye Exam: EOMI, Normal appearance. absent: Scleral icterus - ENT Exam ENT Exam: Mucous Membranes Moist - Neck Exam Neck Exam: Full ROM, Normal Inspection. absent: Thyromegaly - Respiratory Exam Respiratory Exam: Clear to Ausculation Bilateral. absent: Rhonchi, Wheezes - Cardiovascular Exam Cardiovascular Exam: REGULAR RHYTHM, +S1, +S2. absent: Murmur - GI/Abdominal Exam GI & Abdominal Exam: Soft, Normal Bowel Sounds. absent: Tenderness - Extremities Exam Extremities Exam: absent: Calf Tenderness, Pedal Edema - Neurological Exam Neurological Exam: Alert, Awake, Oriented x3 - Psychiatric Exam Psychiatric exam: Normal Affect, Normal Mood - Skin Skin Exam: Normal Color, Warm. absent: Rash Assessment and Plan - Assessment and Plan (Free Text) Assessment: 48 y/o chronic polysubstance abuser and on methadone: [place] out [place] [facility] [place] Known chronic TV endocarditis with recent echo this admission : images viewed by me suggesting normal LVEF with mod PULM HTN. CONTINUE ANTIBIOTICS PER ID BLOOD CULTURES ARE NEGATIVE THUS FAR - PATIENT IS SURGICAL RISK FOR RECURRENCE OF IE, UNLESS HE CAN ABSTAIN FROM POLYSUBSTANCE ABUSE - In addition: i would avoid any elective non-urgent surgeries i.e hernia until completion of ABX and repeat imaging - LONG DISCUSSION WITH PATIENT REGARDS RISKS OF SERIOUS CONSEQUENCES FROM POLYSUBSTANCE ABUSE INCLUDING AND CVA: HE UNDERSTANDS THE RISKS, BUT IS NOT EXPRESSING DESIRE TO REFRAIN. CONT SUPPORTIVE CARE/PSYCH INTERVENTIONS. Transaminitis noted: ? Gi eval
[2018-11-21] MEDS: Telavancin Hydrochloride 750 MG in Sodium Chloride 0.9% 100 ML IVPB SCH (16:30)
--- NOTE | 2018-11-21 17:05 | CP.PCM.PN ---
Subjective - Date & Time of Evaluation Date of Evaluation: 11/21/18 Time of Evaluation: 08:00 - Subjective Subjective: seen on roiunds c/o cough new infiltrates on CXR Objective - Vital Signs/Intake and Output Vital Signs (last 24 hours): Temp Pulse Resp BP Pulse Ox 98.6 F 84 20 130/82 97 11/21/18 16:00 11/21/18 16:00 11/21/18 16:00 11/21/18 16:00 11/21/18 16:00 Intake and Output: 11/21/18 11/21/18 06:59 18:59 Intake Total 900 340 Output Total 700 Balance 200 340 - Medications Medications: Current Medications Acetaminophen (Tylenol 325mg Tab) 650 mg PO Q4H PRN PRN Reason: Fever greater than 101 F Last Admin: 11/11/18 23:37 Dose: 650 mg Al Hydrox/Mg Hydrox/Simethicone (Maalox 30 Ml) 30 ml PO TID PRN PRN Reason: Indigestion / Heartburn Dicyclomine HCl (Bentyl) 10 mg PO Q6 PRN PRN Reason: Muscle spasm Gabapentin (Neurontin) 300 mg PO TID [facility] Last Admin: 11/21/18 14:27 Dose: 300 mg Guaifenesin/Dextromethorphan (Robitussin Dm) 10 ml PO QID [facility] Last Admin: 11/21/18 14:27 Dose: 10 ml Hydroxyzine HCl (Atarax) 25 mg PO Q6 PRN PRN Reason: Agitation Cefazolin Sodium 2,000 mg/ (Sodium Chloride) 100 mls @ 100 mls/hr IVPB Q8H [facility]; Protocol Last Admin: 11/21/18 14:22 Dose: 100 mls/hr Telavancin 750 mg/ Sodium (Chloride) 100 mls @ 100 mls/hr IVPB Q24H [facility]; Protocol Last Admin: 11/21/18 16:30 Dose: 100 mls/hr Ibuprofen (Motrin Tab) 600 mg PO Q6 PRN PRN Reason: Pain, moderate (4-7) Last Admin: 11/09/18 10:22 Dose: 600 mg Loperamide HCl (Imodium) 2 mg PO Q8 PRN PRN Reason: Diarrhea Last Admin: 11/13/18 17:31 Dose: 2 mg Ondansetron HCl (Zofran Tab) 4 mg PO Q8 PRN PRN Reason: Nausea/Vomiting Pantoprazole Sodium (Protonix Ec Tab) 40 mg PO DAILY [facility] Last Admin: 11/21/18 10:30 Dose: 40 mg Trazodone HCl (Desyrel) 50 mg PO HS PRN PRN Reason: Insomnia - Labs Labs: 11/18/18 08:15 11/18/18 08:15 PT 15.0 SECONDS (9.7-12.2) H 11/06/18 09:12 INR 1.4 11/06/18 09:12 APTT 35 SECONDS (21-34) H 11/06/18 09:12 - Constitutional Appears: Chronically Ill - Head Exam Head Exam: ATRAUMATIC, NORMOCEPHALIC - Eye Exam Eye Exam: EOMI, Normal appearance, PERRL Pupil Exam: NORMAL ACCOMODATION, PERRL - ENT Exam ENT Exam: Mucous Membranes Moist, Normal Exam - Neck Exam Neck Exam: Full ROM, Normal Inspection. absent: Lymphadenopathy - Respiratory Exam Respiratory Exam: Clear to Ausculation Bilateral, NORMAL BREATHING PATTERN - Cardiovascular Exam Cardiovascular Exam: REGULAR RHYTHM, +S1, +S2. absent: Murmur - GI/Abdominal Exam GI & Abdominal Exam: Soft, Normal Bowel Sounds. absent: Tenderness - Rectal Exam Rectal Exam: Deferred - Exam Exam: NORMAL INSPECTION - Extremities Exam Extremities Exam: Full ROM, Normal Capillary Refill, Normal Inspection. absent: Joint Swelling, Pedal Edema - Back Exam Back Exam: NORMAL INSPECTION - Neurological Exam Neurological Exam: Alert, Awake, CN II-XII Intact, Normal Gait, Oriented x3 - Psychiatric Exam Psychiatric exam: Normal Affect, Normal Mood - Skin Skin Exam: Dry, Intact, Normal Color, Warm Assessment and Plan (1) ARF (acute renal failure) Status: Acute (2) Drug abuse and dependence Status: Acute (3) Endocarditis Status: Acute (4) Extremity edema Status: Acute (5) Cellulitis Status: Acute (6) Endocarditis due to methicillin susceptible Staphylococcus aureus (MSSA) Status: Acute (7) Endocarditis of tricuspid valve Status: Chronic - Assessment and Plan (Free Text) Assessment: add dalavancin recultured
[2018-11-21 21:20] LABS: BARBITURATES, UR NEGATIVE (NEGATIVE); OPIATES, UR NEGATIVE (NEGATIVE); PHENCYCLIDINE, UR NEGATIVE (NEGATIVE)
[2018-11-21 21:26] LABS: BENZODIAZEPINES, UR POSITIVE (NEGATIVE)
[2018-11-22] MEDS: guaiFENesin DM 200 mg-20 mg/10 ml UD PO SCH ×4 (09:15→21:55)
[2018-11-22] MEDS: Pantoprazole 40 mg EC Tab PO SCH (09:15)
--- NOTE | 2018-11-22 10:35 | CP.PCM.PN ---
Subjective - Date & Time of Evaluation Date of Evaluation: 11/22/18 Time of Evaluation: 11:04 - Subjective Subjective: Mild cough No fevers BENZO positive on drug screen Cigarettes found in room with reported smoke smell by floor team Objective - Vital Signs/Intake and Output Vital Signs (last 24 hours): Temp Pulse Resp BP Pulse Ox 99.4 F 83 20 122/80 96 11/22/18 07:05 11/22/18 07:05 11/22/18 07:05 11/22/18 07:05 11/22/18 07:05 Intake and Output: 11/22/18 11/22/18 06:59 18:59 Intake Total 700 100 Output Total 800 500 Balance -100 -400 - Medications Medications: Current Medications Acetaminophen (Tylenol 325mg Tab) 650 mg PO Q4H PRN PRN Reason: Fever greater than 101 F Last Admin: 11/11/18 23:37 Dose: 650 mg Al Hydrox/Mg Hydrox/Simethicone (Maalox 30 Ml) 30 ml PO TID PRN PRN Reason: Indigestion / Heartburn Gabapentin (Neurontin) 300 mg PO TID [facility] Last Admin: 11/22/18 09:15 Dose: 300 mg Guaifenesin/Dextromethorphan (Robitussin Dm) 10 ml PO QID [facility] Last Admin: 11/22/18 09:15 Dose: 10 ml Cefazolin Sodium 2,000 mg/ (Sodium Chloride) 100 mls @ 100 mls/hr IVPB Q8H [facility]; Protocol Last Admin: 11/22/18 05:48 Dose: 100 mls/hr Telavancin 750 mg/ Sodium (Chloride) 100 mls @ 100 mls/hr IVPB Q24H [facility]; Protocol Last Admin: 11/21/18 16:30 Dose: 100 mls/hr Pantoprazole Sodium (Protonix Ec Tab) 40 mg PO DAILY [facility] Last Admin: 11/22/18 09:15 Dose: 40 mg - Labs Labs: 11/18/18 08:15 11/18/18 08:15 PT 15.0 SECONDS (9.7-12.2) H 11/06/18 09:12 INR 1.4 11/06/18 09:12 APTT 35 SECONDS (21-34) H 11/06/18 09:12 - Constitutional Appears: No Acute Distress - Eye Exam Eye Exam: Normal appearance. absent: Scleral icterus - Neck Exam Neck Exam: Full ROM. absent: Tenderness, Thyromegaly - Respiratory Exam Respiratory Exam: Rhonchi, NORMAL BREATHING PATTERN. absent: Wheezes - Cardiovascular Exam Cardiovascular Exam: REGULAR RHYTHM, +S1, +S2 - GI/Abdominal Exam GI & Abdominal Exam: Soft. absent: Tenderness - Neurological Exam Neurological Exam: Alert, Awake, Oriented x3 Assessment and Plan - Assessment and Plan (Free Text) Assessment: 48 y/o chronic polysubstance abuser and on methadone: Signed out AMA from [facility] [place] 10/2018 Known chronic TV endocarditis with recent echo this admission : images viewed by me suggesting normal LVEF with mod PULM HTN. CONTINUE ANTIBIOTICS PER ID BLOOD CULTURES ARE NEGATIVE THUS FAR - PATIENT IS SURGICAL RISK FOR RECURRENCE OF IE, UNLESS HE CAN ABSTAIN FROM POLYSUBSTANCE ABUSE - In addition: i would avoid any elective non-urgent surgeries i.e hernia until completion of ABX and repeat imaging - LONG DISCUSSION WITH PATIENT REGARDS RISKS OF SERIOUS CONSEQUENCES FROM POLYSUBSTANCE ABUSE INCLUDING AND CVA: HE UNDERSTANDS THE RISKS, BUT IS NOT EXPRESSING DESIRE TO REFRAIN. CONT SUPPORTIVE CARE/PSYCH INTERVENTIONS. Transaminitis noted: ? Gi eval L. lung infiltrates: ? PNA: ABX adjusted BENZO positive possible smoking in room (care jad and psych eval pending) Again stress importance of maintaing drug free life-style
--- NOTE | 2018-11-22 12:01 | PCM.PYCHPN ---
Psychiatric Progress Note - Psychiatric Progress Note Patient seen today, length of contact: 15 min Patient Chief Complaint: "im not good" Problems Identified/Issues Discussed: PGY-[address] Saucedo service The pt is seen, chart reviewed, case discussed with staff. Patient states not liking having a 1:1 in his room. Patient was recently placed on 1:1 as UDS positive for benzo and has been smoking in room. Patient admits to have taken his own xanax and seroquel medications from a bottle he had in his room. Admits to having anxiety. Admits to having difficulty sleeping, wakes up at 4 am and is not able to go back to sleep. Admits to eating small amounts of food, mostly due to patient not liking hospital food. Admits to sweating. Patient denies nausea, vomiting, shakes, abdominal cramp, d/c. Denies suicidal or homicidal ideation, denies visual or auditory hallucinations. Support given, psycho-education provided. After care discussed. Mental Status Examination - Cognitive Function Orientation: Person, Place, Situation, Time Memory: Intact Attention: WNL Concentration: WNL Association: WNL Fund of Knowledge: WNL - Mood Mood: Anxious - Affect Affect: Constricted - Speech Speech: Appropriate - Formal Thought Process Formal Thought Process: No Impairment - Suicidal Ideation Suicidal Ideation: No - Homicidal Ideation Homicidal Ideation: No Goal/Treatment Plan - Goal/Treatment Plan Progress Toward Problem(s) and Goals/Treatment Plan: Atarax 25 mg PO Q6H PRN for anxiety Trazodone 50 mg PO HS for insomnia Continue medications as needed Nicotine patch Support and psychoeducation Continue med management as primary Plan d/w Dr Lewis Kingsley, PGY-1
[2018-11-22] MEDS: Telavancin Hydrochloride 750 MG in Sodium Chloride 0.9% 100 ML IVPB SCH (16:45)
--- NOTE | 2018-11-22 18:27 | CP.PCM.PN ---
Subjective - Date & Time of Evaluation Date of Evaluation: 11/22/18 Time of Evaluation: 18:24 - Subjective Subjective: no pain no darhea upset about restriction of visitors pt said he was taking xanax by himself Objective - Vital Signs/Intake and Output Vital Signs (last 24 hours): Temp Pulse Resp BP Pulse Ox 98.8 F 78 20 138/89 100 11/22/18 16:00 11/22/18 16:00 11/22/18 16:00 11/22/18 16:00 11/22/18 16:00 Intake and Output: 11/22/18 11/22/18 06:59 18:59 Intake Total 700 200 Output Total 800 500 Balance -100 -300 - Medications Medications: Current Medications Acetaminophen (Tylenol 325mg Tab) 650 mg PO Q4H PRN PRN Reason: Fever greater than 101 F Last Admin: 11/11/18 23:37 Dose: 650 mg Al Hydrox/Mg Hydrox/Simethicone (Maalox 30 Ml) 30 ml PO TID PRN PRN Reason: Indigestion / Heartburn Gabapentin (Neurontin) 300 mg PO TID [facility] Last Admin: 11/22/18 17:21 Dose: 300 mg Guaifenesin/Dextromethorphan (Robitussin Dm) 10 ml PO QID [facility] Last Admin: 11/22/18 17:21 Dose: 10 ml Hydroxyzine HCl (Atarax) 25 mg PO Q6H PRN PRN Reason: Anxiety Last Admin: 11/22/18 12:45 Dose: 25 mg Cefazolin Sodium 2,000 mg/ (Sodium Chloride) 100 mls @ 100 mls/hr IVPB Q8H [facility]; Protocol Last Admin: 11/22/18 14:17 Dose: 100 mls/hr Telavancin 750 mg/ Sodium (Chloride) 100 mls @ 100 mls/hr IVPB Q24H [facility]; Protocol Last Admin: 11/22/18 16:45 Dose: 100 mls/hr Nicotine (Nicoderm Cq) 1 patch TD DAILY [facility] Last Admin: 11/22/18 13:06 Dose: 1 patch Pantoprazole Sodium (Protonix Ec Tab) 40 mg PO DAILY [facility] Last Admin: 11/22/18 09:15 Dose: 40 mg Trazodone HCl (Desyrel) 50 mg PO HS [facility] - Labs Labs: 11/18/18 08:15 11/18/18 08:15 PT 15.0 SECONDS (9.7-12.2) H 11/06/18 09:12 INR 1.4 11/06/18 09:12 APTT 35 SECONDS (21-34) H 11/06/18 09:12 - Constitutional Appears: Non-toxic - Head Exam Head Exam: ATRAUMATIC - Eye Exam Eye Exam: Normal appearance Pupil Exam: NORMAL ACCOMODATION - ENT Exam ENT Exam: Mucous Membranes Moist - Neck Exam Neck Exam: Normal Inspection - Respiratory Exam Respiratory Exam: Clear to Ausculation Bilateral - Cardiovascular Exam Cardiovascular Exam: REGULAR RHYTHM - GI/Abdominal Exam GI & Abdominal Exam: Normal Bowel Sounds - Rectal Exam Rectal Exam: NORMAL INSPECTION - Exam Exam: NORMAL INSPECTION - Extremities Exam Extremities Exam: Full ROM - Back Exam Back Exam: NORMAL INSPECTION - Neurological Exam Neurological Exam: Alert, Awake, Oriented x3 - Psychiatric Exam Psychiatric exam: Normal Affect - Skin Skin Exam: Pallor - Additional Findings Additional findings: urin drug screen postive for diazepamspositive for canabis and opoid Assessment and Plan - Assessment and Plan (Free Text) Assessment: endocarditis drug abuse aneamia cont as ordered Plan: as ordered
--- NOTE | 2018-11-22 18:28 | CP.PCM.PN ---
Subjective - Date & Time of Evaluation Date of Evaluation: 11/22/18 Time of Evaluation: 09:00 - Subjective Subjective: less cough less sob wants to go home Objective - Vital Signs/Intake and Output Vital Signs (last 24 hours): Temp Pulse Resp BP Pulse Ox 98.8 F 78 20 138/89 100 11/22/18 16:00 11/22/18 16:00 11/22/18 16:00 11/22/18 16:00 11/22/18 16:00 Intake and Output: 11/22/18 11/22/18 06:59 18:59 Intake Total 700 200 Output Total 800 500 Balance -100 -300 - Medications Medications: Current Medications Acetaminophen (Tylenol 325mg Tab) 650 mg PO Q4H PRN PRN Reason: Fever greater than 101 F Last Admin: 11/11/18 23:37 Dose: 650 mg Al Hydrox/Mg Hydrox/Simethicone (Maalox 30 Ml) 30 ml PO TID PRN PRN Reason: Indigestion / Heartburn Gabapentin (Neurontin) 300 mg PO TID [facility] Last Admin: 11/22/18 17:21 Dose: 300 mg Guaifenesin/Dextromethorphan (Robitussin Dm) 10 ml PO QID [facility] Last Admin: 11/22/18 17:21 Dose: 10 ml Hydroxyzine HCl (Atarax) 25 mg PO Q6H PRN PRN Reason: Anxiety Last Admin: 11/22/18 12:45 Dose: 25 mg Cefazolin Sodium 2,000 mg/ (Sodium Chloride) 100 mls @ 100 mls/hr IVPB Q8H [facility]; Protocol Last Admin: 11/22/18 14:17 Dose: 100 mls/hr Telavancin 750 mg/ Sodium (Chloride) 100 mls @ 100 mls/hr IVPB Q24H [facility]; Protocol Last Admin: 11/22/18 16:45 Dose: 100 mls/hr Nicotine (Nicoderm Cq) 1 patch TD DAILY [facility] Last Admin: 11/22/18 13:06 Dose: 1 patch Pantoprazole Sodium (Protonix Ec Tab) 40 mg PO DAILY [facility] Last Admin: 11/22/18 09:15 Dose: 40 mg Trazodone HCl (Desyrel) 50 mg PO HS [facility] - Labs Labs: 11/18/18 08:15 11/18/18 08:15 PT 15.0 SECONDS (9.7-12.2) H 11/06/18 09:12 INR 1.4 11/06/18 09:12 APTT 35 SECONDS (21-34) H 11/06/18 09:12 - Constitutional Appears: Non-toxic, No Acute Distress, Chronically Ill - Head Exam Head Exam: ATRAUMATIC, NORMAL INSPECTION, NORMOCEPHALIC - Eye Exam Eye Exam: EOMI, Normal appearance, PERRL Pupil Exam: NORMAL ACCOMODATION, PERRL - ENT Exam ENT Exam: Mucous Membranes Moist, Normal Exam - Neck Exam Neck Exam: Full ROM, Normal Inspection. absent: Lymphadenopathy - Respiratory Exam Respiratory Exam: Clear to Ausculation Bilateral, NORMAL BREATHING PATTERN - Cardiovascular Exam Cardiovascular Exam: REGULAR RHYTHM, +S1, +S2. absent: Murmur - GI/Abdominal Exam GI & Abdominal Exam: Soft, Normal Bowel Sounds. absent: Tenderness - Rectal Exam Rectal Exam: Deferred - Exam Exam: NORMAL INSPECTION - Extremities Exam Extremities Exam: Full ROM - Back Exam Back Exam: NORMAL INSPECTION - Neurological Exam Neurological Exam: Alert, Awake, CN II-XII Intact, Normal Gait, Oriented x3 - Psychiatric Exam Psychiatric exam: Normal Affect, Normal Mood - Skin Skin Exam: Dry, Intact, Normal Color, Warm Assessment and Plan (1) ARF (acute renal failure) Status: Acute (2) Drug abuse and dependence Status: Acute (3) Endocarditis Status: Acute (4) Extremity edema Status: Acute (5) Cellulitis Status: Acute (6) Endocarditis due to methicillin susceptible Staphylococcus aureus (MSSA) Status: Acute (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
[2018-11-23 07:26] LABS: BASO % 0.7 % (0.0-2.0); EOS % 0.7 % (0.0-4.0); LYMPH # 2.5 K/uL (1.0-4.3); LYMPH % 56.6 % (20.0-40.0); MEAN CELL VOLUME 79.9 fL (80.0-94.0); MEAN CORPUSCULAR HEMOGLOBIN 26.3 pg (27.0-31.0); MEAN CORPUSCULAR HGB CONC 32.9 g/dL (33.0-37.0); MEAN PLATELET VOLUME 7.9 fL (7.2-11.7); MONO # 0.2 K/uL (0.0-0.8); MONO % 5.4 % (0.0-10.0); NEUT # 1.6 K/uL (1.8-7.0); NEUT % 36.6 % (50.0-75.0); NRBC % 0.2 % (0.0-2.0); RBC 4.56 Mil/uL (4.40-5.90); RED CELL DISTRIBUTION WIDTH 14.3 % (11.5-14.5); WHITE BLOOD COUNT 4.4 K/uL (4.8-10.8)
[2018-11-23 07:55] LABS: ALT/SGPT 61 U/L (21-72); AST/SGOT 66 U/L (17-59); BLOOD UREA NITROGEN 15 mg/dL (9-20); CALCIUM 9.2 mg/dl (8.6-10.4); GFR NON-AFRICAN AMERICAN > 60
[2018-11-23] MEDS: guaiFENesin DM 200 mg-20 mg/10 ml UD PO SCH ×4 (09:12→22:02)
[2018-11-23] MEDS: Pantoprazole 40 mg EC Tab PO SCH (09:12)
--- NOTE | 2018-11-23 12:26 | CP.PCM.PN ---
Subjective - Date & Time of Evaluation Date of Evaluation: 11/23/18 Time of Evaluation: 12:24 - Subjective Subjective: no acute distress vss lung cleare htendocarditis abd soft Objective - Vital Signs/Intake and Output Vital Signs (last 24 hours): Temp Pulse Resp BP Pulse Ox 97.5 F L 79 20 128/79 99 11/23/18 09:04 11/23/18 09:04 11/23/18 09:04 11/23/18 09:04 11/23/18 09:04 Intake and Output: 11/23/18 11/23/18 06:59 18:59 Intake Total 950 Balance 950 - Medications Medications: Current Medications Acetaminophen (Tylenol 325mg Tab) 650 mg PO Q4H PRN PRN Reason: Fever greater than 101 F Last Admin: 11/11/18 23:37 Dose: 650 mg Al Hydrox/Mg Hydrox/Simethicone (Maalox 30 Ml) 30 ml PO TID PRN PRN Reason: Indigestion / Heartburn Gabapentin (Neurontin) 300 mg PO TID [facility] Last Admin: 11/23/18 09:12 Dose: 300 mg Guaifenesin/Dextromethorphan (Robitussin Dm) 10 ml PO QID [facility] Last Admin: 11/23/18 09:12 Dose: 10 ml Hydroxyzine HCl (Atarax) 25 mg PO Q6H PRN PRN Reason: Anxiety Last Admin: 11/23/18 06:57 Dose: 25 mg Cefazolin Sodium 2,000 mg/ (Sodium Chloride) 100 mls @ 100 mls/hr IVPB Q8H [facility]; Protocol Last Admin: 11/23/18 05:46 Dose: 100 mls/hr Telavancin 750 mg/ Sodium (Chloride) 100 mls @ 100 mls/hr IVPB Q24H [facility]; Protocol Last Admin: 11/22/18 16:45 Dose: 100 mls/hr Nicotine (Nicoderm Cq) 1 patch TD DAILY [facility] Last Admin: 11/23/18 09:12 Dose: 1 patch Pantoprazole Sodium (Protonix Ec Tab) 40 mg PO DAILY [facility] Last Admin: 11/23/18 09:12 Dose: 40 mg Trazodone HCl (Desyrel) 50 mg PO HS [facility] Last Admin: 11/22/18 21:55 Dose: 50 mg - Labs Labs: 11/23/18 07:03 11/23/18 07:03 PT 15.0 SECONDS (9.7-12.2) H 11/06/18 09:12 INR 1.4 11/06/18 09:12 APTT 35 SECONDS (21-34) H 11/06/18 09:12 - Constitutional Appears: Non-toxic - Head Exam Head Exam: NORMAL INSPECTION - Eye Exam Eye Exam: Periorbital tenderness Pupil Exam: NORMAL ACCOMODATION - ENT Exam ENT Exam: Normal Exam - Neck Exam Neck Exam: Full ROM - Respiratory Exam Respiratory Exam: Clear to Ausculation Bilateral - Cardiovascular Exam Cardiovascular Exam: REGULAR RHYTHM - Exam Exam: NORMAL INSPECTION - Extremities Exam Extremities Exam: Normal Inspection - Back Exam Back Exam: NORMAL INSPECTION - Neurological Exam Neurological Exam: Awake, Oriented x3 - Psychiatric Exam Psychiatric exam: Anxious - Skin Skin Exam: Pallor Assessment and Plan - Assessment and Plan (Free Text) Assessment: endocarditis drug abuse aneamia cont as ordered
--- NOTE | 2018-11-23 13:50 | CP.PCM.PN ---
Subjective - Date & Time of Evaluation Date of Evaluation: 11/23/18 Time of Evaluation: 13:48 - Subjective Subjective: Clinically same seen by psych: meds adjusted On IV ABX for endocarditis (chronic) Objective - Vital Signs/Intake and Output Vital Signs (last 24 hours): Temp Pulse Resp BP Pulse Ox 97.5 F L 79 20 128/79 99 11/23/18 09:04 11/23/18 09:04 11/23/18 09:04 11/23/18 09:04 11/23/18 09:04 Intake and Output: 11/23/18 11/23/18 06:59 18:59 Intake Total 950 Balance 950 - Medications Medications: Current Medications Acetaminophen (Tylenol 325mg Tab) 650 mg PO Q4H PRN PRN Reason: Fever greater than 101 F Last Admin: 11/11/18 23:37 Dose: 650 mg Al Hydrox/Mg Hydrox/Simethicone (Maalox 30 Ml) 30 ml PO TID PRN PRN Reason: Indigestion / Heartburn Gabapentin (Neurontin) 300 mg PO TID [facility] Last Admin: 11/23/18 13:46 Dose: 300 mg Guaifenesin/Dextromethorphan (Robitussin Dm) 10 ml PO QID [facility] Last Admin: 11/23/18 13:46 Dose: 10 ml Hydroxyzine HCl (Atarax) 25 mg PO Q6H PRN PRN Reason: Anxiety Last Admin: 11/23/18 06:57 Dose: 25 mg Cefazolin Sodium 2,000 mg/ (Sodium Chloride) 100 mls @ 100 mls/hr IVPB Q8H [facility]; Protocol Last Admin: 11/23/18 05:46 Dose: 100 mls/hr Telavancin 750 mg/ Sodium (Chloride) 100 mls @ 100 mls/hr IVPB Q24H [facility]; Protocol Last Admin: 11/22/18 16:45 Dose: 100 mls/hr Nicotine (Nicoderm Cq) 1 patch TD DAILY [facility] Last Admin: 11/23/18 09:12 Dose: 1 patch Pantoprazole Sodium (Protonix Ec Tab) 40 mg PO DAILY [facility] Last Admin: 11/23/18 09:12 Dose: 40 mg Trazodone HCl (Desyrel) 50 mg PO HS [facility] Last Admin: 11/22/18 21:55 Dose: 50 mg - Labs Labs: 04/05/19 07:03 11/23/18 07:03 PT 15.0 SECONDS (9.7-12.2) H 11/06/18 09:12 INR 1.4 11/06/18 09:12 APTT 35 SECONDS (21-34) H 11/06/18 09:12 - Constitutional Appears: No Acute Distress - Eye Exam Eye Exam: EOMI, Normal appearance. absent: Scleral icterus - ENT Exam ENT Exam: Normal Oropharynx - Respiratory Exam Respiratory Exam: Clear to Ausculation Bilateral, NORMAL BREATHING PATTERN. absent: Rhonchi, Wheezes - Cardiovascular Exam Cardiovascular Exam: REGULAR RHYTHM, +S1, +S2. absent: Murmur - GI/Abdominal Exam GI & Abdominal Exam: Soft. absent: Tenderness - Extremities Exam Extremities Exam: absent: Calf Tenderness, Pedal Edema - Neurological Exam Neurological Exam: Alert, Awake, Oriented x3 - Skin Skin Exam: Normal Color, Warm Assessment and Plan - Assessment and Plan (Free Text) Assessment: 48 y/o chronic polysubstance abuser and on methadone: Signed out AMA from [facility] [place] 10/2018 Known chronic TV endocarditis with recent echo this admission : images viewed by me suggesting normal LVEF with mod PULM HTN. CONTINUE ANTIBIOTICS PER ID BLOOD CULTURES ARE NEGATIVE THUS FAR - PATIENT IS SURGICAL RISK FOR RECURRENCE OF IE, UNLESS HE CAN ABSTAIN FROM POLYSUBSTANCE ABUSE - In addition: i would avoid any elective non-urgent surgeries i.e hernia until completion of ABX and repeat imaging - LONG DISCUSSION WITH PATIENT REGARDS RISKS OF SERIOUS CONSEQUENCES FROM POLYSUBSTANCE ABUSE INCLUDING AND CVA: HE UNDERSTANDS THE RISKS, BUT IS NOT EXPRESSING DESIRE TO REFRAIN. CONT SUPPORTIVE CARE/PSYCH INTERVENTIONS. Transaminitis noted: ? Gi eval L. lung infiltrates: ? PNA: ABX adjusted BENZO positive possible smoking in room (care jad and psych eval pending) Again stress importance of maintaing drug free life-style PSYCH consult doen: meds adjusted
--- NOTE | 2018-11-23 15:45 | CP.PCM.PN ---
Subjective - Date & Time of Evaluation Date of Evaluation: 11/23/18 Time of Evaluation: 09:00 - Subjective Subjective: wants to go home asking to cut short course of IV rx Objective - Vital Signs/Intake and Output Vital Signs (last 24 hours): Temp Pulse Resp BP Pulse Ox 97.5 F L 79 20 128/79 99 11/23/18 09:04 11/23/18 09:04 11/23/18 09:04 11/23/18 09:04 11/23/18 09:04 Intake and Output: 11/23/18 11/23/18 06:59 18:59 Intake Total 950 Balance 950 - Medications Medications: Current Medications Acetaminophen (Tylenol 325mg Tab) 650 mg PO Q4H PRN PRN Reason: Fever greater than 101 F Last Admin: 11/11/18 23:37 Dose: 650 mg Al Hydrox/Mg Hydrox/Simethicone (Maalox 30 Ml) 30 ml PO TID PRN PRN Reason: Indigestion / Heartburn Gabapentin (Neurontin) 300 mg PO TID [facility] Last Admin: 11/23/18 13:46 Dose: 300 mg Guaifenesin/Dextromethorphan (Robitussin Dm) 10 ml PO QID [facility] Last Admin: 11/23/18 13:46 Dose: 10 ml Hydroxyzine HCl (Atarax) 25 mg PO Q6H PRN PRN Reason: Anxiety Last Admin: 11/23/18 06:57 Dose: 25 mg Cefazolin Sodium 2,000 mg/ (Sodium Chloride) 100 mls @ 100 mls/hr IVPB Q8H [facility]; Protocol Last Admin: 11/23/18 15:14 Dose: 100 mls/hr Telavancin 750 mg/ Sodium (Chloride) 100 mls @ 100 mls/hr IVPB Q24H [facility]; Protocol Last Admin: 11/22/18 16:45 Dose: 100 mls/hr Nicotine (Nicoderm Cq) 1 patch TD DAILY [facility] Last Admin: 11/23/18 09:12 Dose: 1 patch Pantoprazole Sodium (Protonix Ec Tab) 40 mg PO DAILY [facility] Last Admin: 11/23/18 09:12 Dose: 40 mg Trazodone HCl (Desyrel) 50 mg PO HS [facility] Last Admin: 11/22/18 21:55 Dose: 50 mg - Labs Labs: 11/23/18 07:03 11/23/18 07:03 PT 15.0 SECONDS (9.7-12.2) H 11/06/18 09:12 INR 1.4 11/06/18 09:12 APTT 35 SECONDS (21-34) H 11/06/18 09:12 - Constitutional Appears: Non-toxic, No Acute Distress, Chronically Ill - Head Exam Head Exam: NORMOCEPHALIC - Eye Exam Eye Exam: absent: Scleral icterus - ENT Exam ENT Exam: Mucous Membranes Dry - Neck Exam Neck Exam: absent: Lymphadenopathy - Respiratory Exam Respiratory Exam: Decreased Breath Sounds, Prolonged Expiratory Phase, Rhonchi - Cardiovascular Exam Cardiovascular Exam: REGULAR RHYTHM, +S1, +S2 - GI/Abdominal Exam GI & Abdominal Exam: Soft. absent: Tenderness - Rectal Exam Rectal Exam: Deferred - Exam Exam: NORMAL INSPECTION - Extremities Exam Extremities Exam: absent: Pedal Edema - Back Exam Back Exam: absent: CVA tenderness (L), CVA tenderness (R), paraspinal tenderness - Neurological Exam Neurological Exam: Alert, Awake, CN II-XII Intact, Oriented x3 - Psychiatric Exam Psychiatric exam: Depressed - Skin Skin Exam: Dry Assessment and Plan (1) ARF (acute renal failure) Status: Acute (2) Drug abuse and dependence Status: Acute (3) Endocarditis Status: Acute (4) Extremity edema Status: Acute (5) Cellulitis Status: Acute (6) Endocarditis due to methicillin susceptible Staphylococcus aureus (MSSA) Status: Acute (7) Endocarditis of tricuspid valve Status: Chronic - Assessment and Plan (Free Text) Assessment: IV antibiotics reordered prognosis guarded possible d/c on PO Zyvox as patient refuses to stay for 6 week course
[2018-11-23] MEDS: Telavancin Hydrochloride 750 MG in Sodium Chloride 0.9% 100 ML IVPB SCH (16:46)
[2018-11-24] MEDS: guaiFENesin DM 200 mg-20 mg/10 ml UD PO SCH ×4 (10:15→21:28)
[2018-11-24] MEDS: Pantoprazole 40 mg EC Tab PO SCH (10:15)
--- NOTE | 2018-11-24 12:09 | CP.PCM.PN ---
Subjective - Date & Time of Evaluation Date of Evaluation: 11/24/18 Time of Evaluation: 12:06 - Subjective Subjective: pt matilde any pain today has restriction on visitors bring d5rugs from outside Objective - Vital Signs/Intake and Output Vital Signs (last 24 hours): Temp Pulse Resp BP Pulse Ox 98.4 F 90 20 124/80 98 11/24/18 08:09 11/24/18 08:09 11/24/18 08:09 11/24/18 08:09 11/24/18 08:09 Intake and Output: 11/24/18 11/24/18 06:59 18:59 Intake Total 1100 Balance 1100 - Medications Medications: Current Medications Acetaminophen (Tylenol 325mg Tab) 650 mg PO Q4H PRN PRN Reason: Fever greater than 101 F Last Admin: 11/11/18 23:37 Dose: 650 mg Al Hydrox/Mg Hydrox/Simethicone (Maalox 30 Ml) 30 ml PO TID PRN PRN Reason: Indigestion / Heartburn Gabapentin (Neurontin) 300 mg PO TID [facility] Last Admin: 11/24/18 10:15 Dose: 300 mg Guaifenesin/Dextromethorphan (Robitussin Dm) 10 ml PO QID [facility] Last Admin: 11/24/18 10:15 Dose: 10 ml Cefazolin Sodium 2,000 mg/ (Sodium Chloride) 100 mls @ 100 mls/hr IVPB Q8H [facility]; Protocol Last Admin: 11/24/18 05:03 Dose: 100 mls/hr Telavancin 750 mg/ Sodium (Chloride) 100 mls @ 100 mls/hr IVPB Q24H [facility]; Protocol Last Admin: 11/23/18 16:46 Dose: 100 mls/hr Nicotine (Nicoderm Cq) 1 patch TD DAILY [facility] Last Admin: 11/24/18 10:16 Dose: 1 patch Pantoprazole Sodium (Protonix Ec Tab) 40 mg PO DAILY [facility] Last Admin: 11/24/18 10:15 Dose: 40 mg Trazodone HCl (Desyrel) 50 mg PO HS [facility] Last Admin: 11/23/18 22:02 Dose: 50 mg - Labs Labs: 11/23/18 07:03 11/23/18 07:03 PT 15.0 SECONDS (9.7-12.2) H 11/06/18 09:12 INR 1.4 11/06/18 09:12 APTT 35 SECONDS (21-34) H 11/06/18 09:12 - Constitutional Appears: Non-toxic - Head Exam Head Exam: ATRAUMATIC - Eye Exam Eye Exam: Normal appearance Pupil Exam: NORMAL ACCOMODATION - ENT Exam ENT Exam: Mucous Membranes Moist - Neck Exam Neck Exam: Full ROM - Respiratory Exam Respiratory Exam: NORMAL BREATHING PATTERN - Cardiovascular Exam Cardiovascular Exam: REGULAR RHYTHM - GI/Abdominal Exam GI & Abdominal Exam: Normal Bowel Sounds - Extremities Exam Extremities Exam: Full ROM - Back Exam Back Exam: NORMAL INSPECTION - Neurological Exam Neurological Exam: Alert, Awake, Normal Gait, Oriented x3 - Psychiatric Exam Psychiatric exam: Normal Mood - Skin Skin Exam: Pallor Assessment and Plan - Assessment and Plan (Free Text) Assessment: endocarditis substansce abuse aneamia Plan: continu as ordered
[2018-11-24] MEDS: Telavancin Hydrochloride 750 MG in Sodium Chloride 0.9% 100 ML IVPB SCH (16:40)
--- NOTE | 2018-11-24 19:06 | CP.PCM.PN ---
Subjective - Date & Time of Evaluation Date of Evaluation: 11/24/18 Time of Evaluation: 07:00 - Subjective Subjective: Events reviewed Objective - Vital Signs/Intake and Output Vital Signs (last 24 hours): Temp Pulse Resp BP Pulse Ox 97.9 F 77 20 99/66 L 96 11/24/18 15:00 11/24/18 15:00 11/24/18 15:00 11/24/18 15:00 11/24/18 15:00 Intake and Output: 11/24/18 11/25/18 18:59 06:59 Intake Total 580 Balance 580 - Medications Medications: Current Medications Acetaminophen (Tylenol 325mg Tab) 650 mg PO Q4H PRN PRN Reason: Fever greater than 101 F Last Admin: 11/11/18 23:37 Dose: 650 mg Al Hydrox/Mg Hydrox/Simethicone (Maalox 30 Ml) 30 ml PO TID PRN PRN Reason: Indigestion / Heartburn Gabapentin (Neurontin) 300 mg PO TID [facility] Last Admin: 11/24/18 17:21 Dose: 300 mg Guaifenesin/Dextromethorphan (Robitussin Dm) 10 ml PO QID [facility] Last Admin: 11/24/18 17:21 Dose: 10 ml Cefazolin Sodium 2,000 mg/ (Sodium Chloride) 100 mls @ 100 mls/hr IVPB Q8H [facility]; Protocol Last Admin: 11/24/18 13:55 Dose: 100 mls/hr Telavancin 750 mg/ Sodium (Chloride) 100 mls @ 100 mls/hr IVPB Q24H [facility]; Protocol Last Admin: 11/24/18 16:40 Dose: 100 mls/hr Nicotine (Nicoderm Cq) 1 patch TD DAILY [facility] Last Admin: 11/24/18 10:16 Dose: 1 patch Pantoprazole Sodium (Protonix Ec Tab) 40 mg PO DAILY [facility] Last Admin: 11/24/18 10:15 Dose: 40 mg Trazodone HCl (Desyrel) 50 mg PO HS [facility] Last Admin: 11/23/18 22:02 Dose: 50 mg - Labs Labs: 11/23/18 07:03 11/23/18 07:03 PT 15.0 SECONDS (9.7-12.2) H 11/06/18 09:12 INR 1.4 11/06/18 09:12 APTT 35 SECONDS (21-34) H 11/06/18 09:12 Assessment and Plan - Assessment and Plan (Free Text) Assessment: - Constitutional Appears: No Acute Distress - Eye Exam Eye Exam: EOMI, Normal appearance. absent: Scleral icterus - ENT Exam ENT Exam: Normal Oropharynx - Respiratory Exam Respiratory Exam: Clear to Ausculation Bilateral, NORMAL BREATHING PATTERN. absent: Rhonchi, Wheezes - Cardiovascular Exam Cardiovascular Exam: REGULAR RHYTHM, +S1, +S2. absent: Murmur - GI/Abdominal Exam GI & Abdominal Exam: Soft. absent: Tenderness - Extremities Exam Extremities Exam: absent: Calf Tenderness, Pedal Edema - Neurological Exam Neurological Exam: Alert, Awake, Oriented x3 - Skin Skin Exam: Normal Color, Warm Assessment and Plan - Assessment and Plan (Free Text) Assessment: 48 y/o chronic polysubstance abuser and on methadone: Signed out AMA from [facility] [place] 10/2018 Known chronic TV endocarditis with recent echo this admission : images viewed by me suggesting normal LVEF with mod PULM HTN. CONTINUE ANTIBIOTICS PER ID BLOOD CULTURES ARE NEGATIVE THUS FAR - PATIENT IS SURGICAL RISK FOR RECURRENCE OF IE, UNLESS HE CAN ABSTAIN FROM POLYSUBSTANCE ABUSE - In addition: i would avoid any elective non-urgent surgeries i.e hernia until completion of ABX and repeat imaging - LONG DISCUSSION WITH PATIENT REGARDS RISKS OF SERIOUS CONSEQUENCES FROM POLYSUBSTANCE ABUSE INCLUDING AND CVA: HE UNDERSTANDS THE RISKS, BUT IS NOT EXPRESSING DESIRE TO REFRAIN. CONT SUPPORTIVE CARE/PSYCH INTERVENTIONS. Transaminitis noted: ? Gi eval L. lung infiltrates: ? PNA: ABX adjusted BENZO positive possible smoking in room (care jad and psych eval pending) Again stress importance of maintaing drug free life-style PSYCH consult doen: meds adjusted
--- NOTE | 2018-11-25 07:39 | CP.PCM.PN ---
Subjective - Date & Time of Evaluation Date of Evaluation: 11/25/18 Time of Evaluation: 07:39 - Subjective Subjective: Events reviewed Objective - Vital Signs/Intake and Output Vital Signs (last 24 hours): Temp Pulse Resp BP Pulse Ox 97.8 F 74 18 106/68 98 11/25/18 00:00 11/25/18 00:00 11/25/18 00:00 11/25/18 00:00 11/25/18 00:00 Intake and Output: 11/25/18 11/25/18 06:59 18:59 Intake Total 500 340 Output Total 1200 Balance -700 340 - Medications Medications: Current Medications Acetaminophen (Tylenol 325mg Tab) 650 mg PO Q4H PRN PRN Reason: Fever greater than 101 F Last Admin: 11/11/18 23:37 Dose: 650 mg Al Hydrox/Mg Hydrox/Simethicone (Maalox 30 Ml) 30 ml PO TID PRN PRN Reason: Indigestion / Heartburn Gabapentin (Neurontin) 300 mg PO TID [facility] Last Admin: 11/24/18 17:21 Dose: 300 mg Guaifenesin/Dextromethorphan (Robitussin Dm) 10 ml PO QID [facility] Last Admin: 11/24/18 21:28 Dose: 10 ml Cefazolin Sodium 2,000 mg/ (Sodium Chloride) 100 mls @ 100 mls/hr IVPB Q8H [facility]; Protocol Last Admin: 11/25/18 05:10 Dose: 100 mls/hr Telavancin 750 mg/ Sodium (Chloride) 100 mls @ 100 mls/hr IVPB Q24H [facility]; Protocol Last Admin: 11/24/18 16:40 Dose: 100 mls/hr Nicotine (Nicoderm Cq) 1 patch TD DAILY [facility] Last Admin: 11/24/18 10:16 Dose: 1 patch Pantoprazole Sodium (Protonix Ec Tab) 40 mg PO DAILY [facility] Last Admin: 11/24/18 10:15 Dose: 40 mg Trazodone HCl (Desyrel) 50 mg PO HS [facility] Last Admin: 11/24/18 21:28 Dose: 50 mg - Labs Labs: 11/23/18 07:03 11/23/18 07:03 PT 15.0 SECONDS (9.7-12.2) H 11/06/18 09:12 INR 1.4 11/06/18 09:12 APTT 35 SECONDS (21-34) H 11/06/18 09:12 Assessment and Plan - Assessment and Plan (Free Text) Assessment: - Constitutional Appears: No Acute Distress - Eye Exam Eye Exam: EOMI, Normal appearance. absent: Scleral icterus - ENT Exam ENT Exam: Normal Oropharynx - Respiratory Exam Respiratory Exam: Clear to Ausculation Bilateral, NORMAL BREATHING PATTERN. absent: Rhonchi, Wheezes - Cardiovascular Exam Cardiovascular Exam: REGULAR RHYTHM, +S1, +S2. absent: Murmur - GI/Abdominal Exam GI & Abdominal Exam: Soft. absent: Tenderness - Extremities Exam Extremities Exam: absent: Calf Tenderness, Pedal Edema - Neurological Exam Neurological Exam: Alert, Awake, Oriented x3 - Skin Skin Exam: Normal Color, Warm Assessment and Plan - Assessment and Plan (Free Text) Assessment: 48 y/o chronic polysubstance abuser and on methadone: Signed out AMA from [facility] [place] 10/2018 Known chronic TV endocarditis with recent echo this admission : images viewed by me suggesting normal LVEF with mod PULM HTN. CONTINUE ANTIBIOTICS PER ID BLOOD CULTURES ARE NEGATIVE THUS FAR - PATIENT IS SURGICAL RISK FOR RECURRENCE OF IE, UNLESS HE CAN ABSTAIN FROM POLYSUBSTANCE ABUSE - In addition: i would avoid any elective non-urgent surgeries i.e hernia until completion of ABX and repeat imaging - LONG DISCUSSION WITH PATIENT REGARDS RISKS OF SERIOUS CONSEQUENCES FROM POLYSUBSTANCE ABUSE INCLUDING AND CVA: HE UNDERSTANDS THE RISKS, BUT IS NOT EXPRESSING DESIRE TO REFRAIN. CONT SUPPORTIVE CARE/PSYCH INTERVENTIONS.
[2018-11-25] MEDS: guaiFENesin DM 200 mg-20 mg/10 ml UD PO SCH ×4 (10:20→21:55)
[2018-11-25] MEDS: Pantoprazole 40 mg EC Tab PO SCH (10:20)
--- NOTE | 2018-11-25 11:56 | CP.PCM.PN ---
Subjective - Date & Time of Evaluation Date of Evaluation: 11/25/18 Time of Evaluation: 11:54 - Subjective Subjective: comfortable receiving iv antibiotics has one to one to avoid drugs from outside Objective - Vital Signs/Intake and Output Vital Signs (last 24 hours): Temp Pulse Resp BP Pulse Ox 97.9 F 88 20 116/72 97 11/25/18 08:00 11/25/18 08:00 11/25/18 08:00 11/25/18 08:00 11/25/18 08:00 Intake and Output: 11/25/18 11/25/18 06:59 18:59 Intake Total 500 340 Output Total 1200 Balance -700 340 - Medications Medications: Current Medications Acetaminophen (Tylenol 325mg Tab) 650 mg PO Q4H PRN PRN Reason: Fever greater than 101 F Last Admin: 11/11/18 23:37 Dose: 650 mg Al Hydrox/Mg Hydrox/Simethicone (Maalox 30 Ml) 30 ml PO TID PRN PRN Reason: Indigestion / Heartburn Gabapentin (Neurontin) 300 mg PO TID [facility] Last Admin: 11/25/18 10:20 Dose: 300 mg Guaifenesin/Dextromethorphan (Robitussin Dm) 10 ml PO QID [facility] Last Admin: 11/25/18 10:20 Dose: Not Given Cefazolin Sodium 2,000 mg/ (Sodium Chloride) 100 mls @ 100 mls/hr IVPB Q8H [facility]; Protocol Last Admin: 11/25/18 05:10 Dose: 100 mls/hr Telavancin 750 mg/ Sodium (Chloride) 100 mls @ 100 mls/hr IVPB Q24H [facility]; Protocol Last Admin: 11/24/18 16:40 Dose: 100 mls/hr Nicotine (Nicoderm Cq) 1 patch TD DAILY [facility] Last Admin: 11/25/18 10:20 Dose: 1 patch Pantoprazole Sodium (Protonix Ec Tab) 40 mg PO DAILY [facility] Last Admin: 11/25/18 10:20 Dose: 40 mg Trazodone HCl (Desyrel) 50 mg PO HS [facility] Last Admin: 11/24/18 21:28 Dose: 50 mg - Labs Labs: 11/23/18 07:03 11/23/18 07:03 PT 15.0 SECONDS (9.7-12.2) H 11/06/18 09:12 INR 1.4 11/06/18 09:12 APTT 35 SECONDS (21-34) H 11/06/18 09:12 - Constitutional Appears: Non-toxic - Head Exam Head Exam: ATRAUMATIC - ENT Exam ENT Exam: Mucous Membranes Moist - Neck Exam Neck Exam: Normal Inspection - Respiratory Exam Respiratory Exam: NORMAL BREATHING PATTERN - Cardiovascular Exam Cardiovascular Exam: REGULAR RHYTHM - GI/Abdominal Exam GI & Abdominal Exam: Normal Bowel Sounds - Exam Exam: NORMAL INSPECTION - Extremities Exam Extremities Exam: Full ROM - Back Exam Back Exam: NORMAL INSPECTION - Neurological Exam Neurological Exam: Awake, Normal Gait, Oriented x3 - Psychiatric Exam Psychiatric exam: Normal Mood - Skin Skin Exam: Pallor Assessment and Plan - Assessment and Plan (Free Text) Assessment: endocarditis drug abuse aneamia cont as ordered Plan: as per orders
--- NOTE | 2018-11-25 14:23 | CP.PCM.PN ---
Subjective - Date & Time of Evaluation Date of Evaluation: 11/25/18 Time of Evaluation: 09:00 - Subjective Subjective: alert awake afebrile NAD Objective - Vital Signs/Intake and Output Vital Signs (last 24 hours): Temp Pulse Resp BP Pulse Ox 97.9 F 88 20 116/72 97 11/25/18 08:00 11/25/18 08:00 11/25/18 08:00 11/25/18 08:00 11/25/18 08:00 Intake and Output: 11/25/18 11/25/18 06:59 18:59 Intake Total 500 340 Output Total 1200 Balance -700 340 - Medications Medications: Current Medications Acetaminophen (Tylenol 325mg Tab) 650 mg PO Q4H PRN PRN Reason: Fever greater than 101 F Last Admin: 11/11/18 23:37 Dose: 650 mg Al Hydrox/Mg Hydrox/Simethicone (Maalox 30 Ml) 30 ml PO TID PRN PRN Reason: Indigestion / Heartburn Gabapentin (Neurontin) 300 mg PO TID [facility] Last Admin: 11/25/18 14:16 Dose: 300 mg Guaifenesin/Dextromethorphan (Robitussin Dm) 10 ml PO QID [facility]AN Last Admin: 11/25/18 13:56 Dose: Not Given Cefazolin Sodium 2,000 mg/ (Sodium Chloride) 100 mls @ 100 mls/hr IVPB Q8H [facility]; Protocol Last Admin: 11/25/18 14:15 Dose: 100 mls/hr Telavancin 750 mg/ Sodium (Chloride) 100 mls @ 100 mls/hr IVPB Q24H [facility]; Protocol Last Admin: 11/24/18 16:40 Dose: 100 mls/hr Nicotine (Nicoderm Cq) 1 patch TD DAILY [facility] Last Admin: 11/25/18 10:20 Dose: 1 patch Pantoprazole Sodium (Protonix Ec Tab) 40 mg PO DAILY [facility] Last Admin: 11/25/18 10:20 Dose: 40 mg Trazodone HCl (Desyrel) 50 mg PO HS [facility] Last Admin: 11/24/18 21:28 Dose: 50 mg - Labs Labs: 11/23/18 07:03 11/23/18 07:03 PT 15.0 SECONDS (9.7-12.2) H 11/06/18 09:12 INR 1.4 03/19/19 09:12 APTT 35 SECONDS (21-34) H 11/06/18 09:12 - Constitutional Appears: Non-toxic, No Acute Distress, Chronically Ill - Head Exam Head Exam: ATRAUMATIC, NORMAL INSPECTION, NORMOCEPHALIC - Eye Exam Eye Exam: EOMI, Normal appearance, PERRL Pupil Exam: NORMAL ACCOMODATION, PERRL - ENT Exam ENT Exam: Mucous Membranes Moist, Normal Exam - Neck Exam Neck Exam: Full ROM, Normal Inspection. absent: Lymphadenopathy - Respiratory Exam Respiratory Exam: Clear to Ausculation Bilateral, NORMAL BREATHING PATTERN - Cardiovascular Exam Cardiovascular Exam: REGULAR RHYTHM, +S1, +S2. absent: Murmur - GI/Abdominal Exam GI & Abdominal Exam: Soft, Normal Bowel Sounds. absent: Tenderness - Rectal Exam Rectal Exam: Deferred - Extremities Exam Extremities Exam: Full ROM, Normal Capillary Refill, Normal Inspection. absent: Joint Swelling, Pedal Edema - Back Exam Back Exam: NORMAL INSPECTION - Neurological Exam Neurological Exam: Alert, Awake, CN II-XII Intact, Normal Gait, Oriented x3 - Psychiatric Exam Psychiatric exam: Normal Affect, Normal Mood - Skin Skin Exam: Dry, Intact, Normal Color, Warm Assessment and Plan (1) ARF (acute renal failure) Status: Acute (2) Drug abuse and dependence Status: Acute (3) Endocarditis Status: Acute (4) Extremity edema Status: Acute (5) Cellulitis Status: Acute (6) Endocarditis due to methicillin susceptible Staphylococcus aureus (MSSA) Status: Acute (7) Endocarditis of tricuspid valve Status: Chronic - Assessment and Plan (Free Text) Assessment: 48 y/o chronic polysubstance abuser and on methadone: Signed out AMA from [facility] 10[place] Known chronic TV endocarditis with recent echo this admission : images viewed by me suggesting normal LVEF with mod PULM HTN. IV antibiotics renewed Has Hep C will need Rx for this
[2018-11-25] MEDS: Telavancin Hydrochloride 750 MG in Sodium Chloride 0.9% 100 ML IVPB SCH (16:08)
[2018-11-25 21:20] LABS: BARBITURATES, UR NEGATIVE (NEGATIVE); BENZODIAZEPINES, UR NEGATIVE (NEGATIVE); OPIATES, UR NEGATIVE (NEGATIVE); PHENCYCLIDINE, UR NEGATIVE (NEGATIVE)
[2018-11-26] MEDS: guaiFENesin DM 200 mg-20 mg/10 ml UD PO SCH ×4 (10:57→21:14)
[2018-11-26] MEDS: Pantoprazole 40 mg EC Tab PO SCH (10:57)
--- NOTE | 2018-11-26 12:12 | CP.PCM.PN ---
Subjective - Date & Time of Evaluation Date of Evaluation: 11/26/18 Time of Evaluation: 08:00 - Subjective Subjective: events noted noncompliant poor prognosis Objective - Vital Signs/Intake and Output Vital Signs (last 24 hours): Temp Pulse Resp BP Pulse Ox 98 F 74 18 112/72 99 11/26/18 09:00 11/26/18 09:00 11/26/18 09:00 11/26/18 09:00 11/26/18 09:00 Intake and Output: 11/26/18 11/26/18 06:59 18:59 Intake Total 940 Output Total 700 Balance 240 - Medications Medications: Current Medications Acetaminophen (Tylenol 325mg Tab) 650 mg PO Q4H PRN PRN Reason: Fever greater than 101 F Last Admin: 11/11/18 23:37 Dose: 650 mg Al Hydrox/Mg Hydrox/Simethicone (Maalox 30 Ml) 30 ml PO TID PRN PRN Reason: Indigestion / Heartburn Gabapentin (Neurontin) 300 mg PO TID [facility] Last Admin: 11/26/18 10:57 Dose: 300 mg Guaifenesin/Dextromethorphan (Robitussin Dm) 10 ml PO QID [facility] Last Admin: 11/26/18 10:57 Dose: 10 ml Cefazolin Sodium 2,000 mg/ (Sodium Chloride) 100 mls @ 100 mls/hr IVPB Q8H [facility]; Protocol Last Admin: 11/26/18 05:38 Dose: 100 mls/hr Telavancin 750 mg/ Sodium (Chloride) 100 mls @ 100 mls/hr IVPB Q24H [facility]; Protocol Last Admin: 11/25/18 16:08 Dose: 100 mls/hr Nicotine (Nicoderm Cq) 1 patch TD DAILY [facility] Last Admin: 11/26/18 10:57 Dose: 1 patch Pantoprazole Sodium (Protonix Ec Tab) 40 mg PO DAILY [facility] Last Admin: 11/26/18 10:57 Dose: 40 mg Trazodone HCl (Desyrel) 50 mg PO HS [facility] Last Admin: 11/25/18 21:50 Dose: 50 mg - Labs Labs: 11/23/18 07:03 11/23/18 07:03 PT 15.0 SECONDS (9.7-12.2) H 11/06/18 09:12 INR 1.4 11/06/18 09:12 APTT 35 SECONDS (21-34) H 11/06/18 09:12 - Constitutional Appears: Non-toxic, Chronically Ill - Head Exam Head Exam: NORMOCEPHALIC - Eye Exam Eye Exam: absent: Scleral icterus - ENT Exam ENT Exam: Mucous Membranes Dry - Neck Exam Neck Exam: absent: Lymphadenopathy - Respiratory Exam Respiratory Exam: Decreased Breath Sounds - Cardiovascular Exam Cardiovascular Exam: REGULAR RHYTHM - GI/Abdominal Exam GI & Abdominal Exam: Distended, Soft - Rectal Exam Rectal Exam: Deferred - Exam Exam: NORMAL INSPECTION - Extremities Exam Extremities Exam: absent: Pedal Edema - Back Exam Back Exam: absent: CVA tenderness (L), CVA tenderness (R) - Neurological Exam Neurological Exam: Alert, Awake, CN II-XII Intact, Oriented x3 - Psychiatric Exam Psychiatric exam: Depressed - Skin Skin Exam: Dry Assessment and Plan (1) ARF (acute renal failure) Status: Acute (2) Drug abuse and dependence Status: Acute (3) Endocarditis Status: Acute (4) Extremity edema Status: Acute (5) Cellulitis Status: Acute (6) Endocarditis due to methicillin susceptible Staphylococcus aureus (MSSA) Status: Acute (7) Endocarditis of tricuspid valve Status: Chronic - Assessment and Plan (Free Text) Assessment: cont IV rx wants to leave by Monday poor prognosis high risk for relapse
--- NOTE | 2018-11-26 13:23 | PCM.PYCHPN ---
Psychiatric Progress Note - Psychiatric Progress Note Patient seen today, length of contact: 15 min Patient Chief Complaint: I am withdrawing.' Medication Change: Yes Medical Record Reviewed: Yes Mental Status Examination - Cognitive Function Orientation: Person, Place, Situation, Time Memory: Intact Attention: WNL Concentration: WNL Association: WNL Fund of Knowledge: Poor - Mood Mood: Anxious - Affect Affect: Constricted - Speech Speech: Appropriate - Formal Thought Process Formal Thought Process: No Impairment - Suicidal Ideation Suicidal Ideation: No - Homicidal Ideation Homicidal Ideation: No Goal/Treatment Plan - Goal/Treatment Plan Need for Continued Stay: Remain at risks for inpatient hospitalization Progress Toward Problem(s) and Goals/Treatment Plan: Supportive therapy Methadone taper - completed Suboxone 4 mg daily Withdrawal medications including loperamide/Zofran/hydroxyzine Neurontin for augmentation Trazodone for insomnia
[2018-11-26] MEDS ORDERED: Buprenorphine Hydrochloride 8 mg SL SCH (14:00)
[2018-11-26] MEDS: Telavancin Hydrochloride 750 MG in Sodium Chloride 0.9% 100 ML IVPB SCH (16:49)
--- NOTE | 2018-11-26 16:58 | CP.PCM.PN ---
Subjective - Date & Time of Evaluation Date of Evaluation: 11/26/18 Time of Evaluation: 16:56 - Subjective Subjective: pt feels beter anxious to go home hgb normal urin no drugs Objective - Vital Signs/Intake and Output Vital Signs (last 24 hours): Temp Pulse Resp BP Pulse Ox 98 F 74 18 112/72 99 11/26/18 09:00 11/26/18 09:00 11/26/18 09:00 11/26/18 09:00 11/26/18 09:00 Intake and Output: 11/26/18 11/26/18 06:59 18:59 Intake Total 940 580 Output Total 700 Balance 240 580 - Medications Medications: Current Medications Acetaminophen (Tylenol 325mg Tab) 650 mg PO Q4H PRN PRN Reason: Fever greater than 101 F Last Admin: 11/11/18 23:37 Dose: 650 mg Al Hydrox/Mg Hydrox/Simethicone (Maalox 30 Ml) 30 ml PO TID PRN PRN Reason: Indigestion / Heartburn Buprenorphine HCl (Subutex) 4 mg SL DAILY [facility] Last Admin: 11/26/18 14:52 Dose: Not Given Gabapentin (Neurontin) 300 mg PO TID [facility] Last Admin: 11/26/18 14:51 Dose: Not Given Guaifenesin/Dextromethorphan (Robitussin Dm) 10 ml PO QID [facility] Last Admin: 11/26/18 14:52 Dose: Not Given Cefazolin Sodium 2,000 mg/ (Sodium Chloride) 100 mls @ 100 mls/hr IVPB Q8H [facility]; Protocol Last Admin: 11/26/18 14:51 Dose: 100 mls/hr Telavancin 750 mg/ Sodium (Chloride) 100 mls @ 100 mls/hr IVPB Q24H [facility]; Protocol Last Admin: 11/26/18 16:49 Dose: 100 mls/hr Nicotine (Nicoderm Cq) 1 patch TD DAILY [facility] Last Admin: 11/26/18 10:57 Dose: Not Given Pantoprazole Sodium (Protonix Ec Tab) 40 mg PO DAILY [facility] Last Admin: 11/26/18 10:57 Dose: 40 mg Trazodone HCl (Desyrel) 50 mg PO HS [facility] Last Admin: 11/25/18 21:50 Dose: 50 mg - Labs Labs: 11/23/18 07:03 11/23/18 07:03 PT 15.0 SECONDS (9.7-12.2) H 11/06/18 09:12 INR 1.4 11/06/18 09:12 APTT 35 SECONDS (21-34) H 11/06/18 09:12 - Constitutional Appears: Non-toxic - Head Exam Head Exam: ATRAUMATIC - Eye Exam Eye Exam: Normal appearance Pupil Exam: NORMAL ACCOMODATION - ENT Exam ENT Exam: Mucous Membranes Moist - Neck Exam Neck Exam: Full ROM - Respiratory Exam Respiratory Exam: NORMAL BREATHING PATTERN - Cardiovascular Exam Cardiovascular Exam: REGULAR RHYTHM - Exam Exam: NORMAL INSPECTION - Extremities Exam Extremities Exam: Full ROM - Neurological Exam Neurological Exam: Alert, Awake, Normal Gait - Psychiatric Exam Psychiatric exam: Normal Mood - Skin Skin Exam: Normal Color Assessment and Plan - Assessment and Plan (Free Text) Assessment: endocarditis Plan: continu as ordered
[2018-11-26 18:19] VITALS: RESP 20; O2SAT 97
--- NOTE | 2018-11-26 22:23 | CP.PCM.PN ---
Subjective - Date & Time of Evaluation Date of Evaluation: 11/26/18 Time of Evaluation: 13:00 - Subjective Subjective: Sleeping arrousable events noted afebrile no CP Objective - Vital Signs/Intake and Output Vital Signs (last 24 hours): Temp Pulse Resp BP Pulse Ox 98.6 F 86 20 146/84 97 11/26/18 16:00 11/26/18 16:00 11/26/18 16:00 11/26/18 16:00 11/26/18 16:00 Intake and Output: 11/26/18 11/27/18 18:59 06:59 Intake Total 580 Balance 580 - Medications Medications: Current Medications Acetaminophen (Tylenol 325mg Tab) 650 mg PO Q4H PRN PRN Reason: Fever greater than 101 F Last Admin: 11/11/18 23:37 Dose: 650 mg Al Hydrox/Mg Hydrox/Simethicone (Maalox 30 Ml) 30 ml PO TID PRN PRN Reason: Indigestion / Heartburn Buprenorphine HCl (Subutex) 4 mg SL DAILY [facility] Last Admin: 11/26/18 14:52 Dose: Not Given Gabapentin (Neurontin) 300 mg PO TID [facility] Last Admin: 11/26/18 18:35 Dose: Not Given Guaifenesin/Dextromethorphan (Robitussin Dm) 10 ml PO QID [facility] Last Admin: 11/26/18 21:14 Dose: Not Given Hydroxyzine HCl (Atarax) 25 mg PO Q6 PRN PRN Reason: Anxiety Last Admin: 11/26/18 20:55 Dose: 25 mg Cefazolin Sodium 2,000 mg/ (Sodium Chloride) 100 mls @ 100 mls/hr IVPB Q8H [facility]; Protocol Last Admin: 11/26/18 21:06 Dose: 100 mls/hr Telavancin 750 mg/ Sodium (Chloride) 100 mls @ 100 mls/hr IVPB Q24H [facility]; Protocol Last Admin: 11/26/18 16:49 Dose: 100 mls/hr Nicotine (Nicoderm Cq) 1 patch TD DAILY [facility] Last Admin: 11/26/18 10:57 Dose: Not Given Pantoprazole Sodium (Protonix Ec Tab) 40 mg PO DAILY [facility] Last Admin: 11/26/18 10:57 Dose: 40 mg Trazodone HCl (Desyrel) 50 mg PO HS [facility] Last Admin: 11/26/18 21:05 Dose: 50 mg - Labs Labs: 11/23/18 07:03 11/23/18 07:03 PT 15.0 SECONDS (9.7-12.2) H 11/06/18 09:12 INR 1.4 11/06/18 09:12 APTT 35 SECONDS (21-34) H 11/06/18 09:12 - Constitutional Appears: No Acute Distress - Head Exam Head Exam: ATRAUMATIC, NORMAL INSPECTION, NORMOCEPHALIC - Eye Exam Eye Exam: absent: Scleral icterus - Respiratory Exam Respiratory Exam: Clear to Ausculation Bilateral. absent: Rhonchi, Wheezes - Cardiovascular Exam Cardiovascular Exam: REGULAR RHYTHM, +S1, +S2. absent: JVD, Murmur - GI/Abdominal Exam GI & Abdominal Exam: Soft. absent: Tenderness - Extremities Exam Extremities Exam: absent: Calf Tenderness, Pedal Edema - Neurological Exam Neurological Exam: Alert, Oriented x3 Assessment and Plan - Assessment and Plan (Free Text) Assessment: 48 y/o chronic polysubstance abuser and on methadone: Signed out AMA from [facility] [place] 10/2018 Known chronic TV endocarditis with recent echo this admission : images viewed by me suggesting normal LVEF with mod PULM HTN. CONTINUE ANTIBIOTICS PER ID Blood cultures remain negative BLOOD CULTURES ARE NEGATIVE THUS FAR - PATIENT IS SURGICAL RISK FOR RECURRENCE OF IE, UNLESS HE CAN ABSTAIN FROM POLYSUBSTANCE ABUSE - In addition: i would avoid any elective non-urgent surgeries i.e hernia until completion of ABX and repeat imaging - LONG DISCUSSION WITH PATIENT REGARDS RISKS OF SERIOUS CONSEQUENCES FROM POLYSUBSTANCE ABUSE INCLUDING AND CVA: HE UNDERSTANDS THE RISKS, BUT IS NOT EXPRESSING DESIRE TO REFRAIN. CONT SUPPORTIVE CARE/PSYCH INTERVENTIONS.
[2018-11-27 01:44] VITALS: BP 146/82; PULSE 90; TEMP 98.5
--- NOTE | 2018-11-27 09:24 | CP.PCM.PN ---
Subjective - Date & Time of Evaluation Date of Evaluation: 11/27/18 Time of Evaluation: 09:23 - Subjective Subjective: Events reviewed Objective - Vital Signs/Intake and Output Vital Signs (last 24 hours): Temp Pulse Resp BP Pulse Ox 98.5 F 90 20 146/82 97 11/27/18 01:43 11/27/18 01:43 11/27/18 01:43 11/27/18 01:43 11/27/18 01:43 Intake and Output: 11/27/18 11/27/18 06:59 18:59 Intake Total 1180 Balance 1180 - Medications Medications: Current Medications Acetaminophen (Tylenol 325mg Tab) 650 mg PO Q4H PRN PRN Reason: Fever greater than 101 F Last Admin: 11/11/18 23:37 Dose: 650 mg Al Hydrox/Mg Hydrox/Simethicone (Maalox 30 Ml) 30 ml PO TID PRN PRN Reason: Indigestion / Heartburn Buprenorphine HCl (Subutex) 4 mg SL DAILY [facility] Last Admin: 11/26/18 14:52 Dose: Not Given Gabapentin (Neurontin) 300 mg PO TID [facility] Last Admin: 11/26/18 18:35 Dose: Not Given Guaifenesin/Dextromethorphan (Robitussin Dm) 10 ml PO QID [facility] Last Admin: 11/26/18 21:14 Dose: Not Given Hydroxyzine HCl (Atarax) 25 mg PO Q6 PRN PRN Reason: Anxiety Last Admin: 11/27/18 07:46 Dose: 25 mg Cefazolin Sodium 2,000 mg/ (Sodium Chloride) 100 mls @ 100 mls/hr IVPB Q8H [facility]; Protocol Last Admin: 11/27/18 06:09 Dose: 100 mls/hr Telavancin 750 mg/ Sodium (Chloride) 100 mls @ 100 mls/hr IVPB Q24H [facility]; Protocol Last Admin: 11/26/18 16:49 Dose: 100 mls/hr Nicotine (Nicoderm Cq) 1 patch TD DAILY [facility] Last Admin: 11/26/18 10:57 Dose: Not Given Pantoprazole Sodium (Protonix Ec Tab) 40 mg PO DAILY [facility] Last Admin: 11/26/18 10:57 Dose: 40 mg Trazodone HCl (Desyrel) 50 mg PO HS [facility] Last Admin: 11/26/18 21:05 Dose: 50 mg - Labs Labs: 11/23/18 07:03 11/23/18 07:03 PT 15.0 SECONDS (9.7-12.2) H 11/06/18 09:12 INR 1.4 11/06/18 09:12 APTT 35 SECONDS (21-34) H 11/06/18 09:12 Assessment and Plan - Assessment and Plan (Free Text) Assessment: - Constitutional Appears: No Acute Distress - Head Exam Head Exam: ATRAUMATIC, NORMAL INSPECTION, NORMOCEPHALIC - Eye Exam Eye Exam: absent: Scleral icterus - Respiratory Exam Respiratory Exam: Clear to Ausculation Bilateral. absent: Rhonchi, Wheezes - Cardiovascular Exam Cardiovascular Exam: REGULAR RHYTHM, +S1, +S2. absent: JVD, Murmur - GI/Abdominal Exam GI & Abdominal Exam: Soft. absent: Tenderness - Extremities Exam Extremities Exam: absent: Calf Tenderness, Pedal Edema - Neurological Exam Neurological Exam: Alert, Oriented x3 Assessment and Plan - Assessment and Plan (Free Text) Assessment: 48 y/o chronic polysubstance abuser and on methadone: Signed out AMA from [facility] [place] 10/2018 Known chronic TV endocarditis with recent echo this admission : images viewed by me suggesting normal LVEF with mod PULM HTN. CONTINUE ANTIBIOTICS PER ID Blood cultures remain negative BLOOD CULTURES ARE NEGATIVE THUS FAR - PATIENT IS SURGICAL RISK FOR RECURRENCE OF IE, UNLESS HE CAN ABSTAIN FROM POLYSUBSTANCE ABUSE - In addition: i would avoid any elective non-urgent surgeries i.e hernia until completion of ABX and repeat imaging - LONG DISCUSSION WITH PATIENT REGARDS RISKS OF SERIOUS CONSEQUENCES FROM POLYSUBSTANCE ABUSE INCLUDING AND CVA: HE UNDERSTANDS THE RISKS, BUT IS NOT EXPRESSING DESIRE TO REFRAIN. CONT SUPPORTIVE CARE/PSYCH INTERVENTIONS.
--- NOTE | 2018-11-27 19:33 | CP.PCM.PCO ---
Physician Communication Note - Physician Communication Note Physician Communication Note: Pt requested AMA. Explained risks. Primary made aware. PICC removed. AMA
== END 2018-11-27 09:45 | disposition left against medical advice (07) | DRG 289 ==
LOC: C.ER 06:38 → C.9E 12:27 → EEVIPCON 12:27 → C.3T 13:21
PROVIDERS: ADMIT Internal Medicine; ATTEND Internal Medicine
PROC: HZ2ZZZZ Detoxification Services for Substance Abuse Treatment (ICD-10-PCS; principal; 2018-11-07)
DX: I33.0 Acute and subacute infective endocarditis (principal); F11.23 Opioid dependence with withdrawal; N17.9 Acute kidney failure, unspecified; L03.90 Cellulitis, unspecified; B19.20 Unspecified viral hepatitis C without hepatic coma; F14.90 Cocaine use, unspecified, uncomplicated; F17.210 Nicotine dependence, cigarettes, uncomplicated; F13.90 Sedative, hypnotic, or anxiolytic use, unspecified, uncomplicated; G47.00 Insomnia, unspecified; I27.20 Pulmonary hypertension, unspecified; B95.61 Methicillin susceptible Staphylococcus aureus infection as the cause of diseases classified elsewhere

== ENCOUNTER 2018-12-17 21:17 | Emergency (ER) | payer OTHER ==
[2018-12-17 21:18] VITALS: BMI 34.4
--- NOTE | 2018-12-17 22:26 | C.PDOC ---
History Of Present Illness pt was treated for endocarditis, and left ama on 11/27/18. presents stating that he needs a clearance to return to work and that he feels occasionally short of breath. Has continuing to do drugs. No f/c/n/v. Speaking in complete sentences Time Seen by Provider: 12/17/18 22:26 Chief Complaint (Nursing): Shortness Of Breath History Per: Patient History/Exam Limitations: no limitations Onset/Duration Of Symptoms: Days Current Symptoms Are (Timing): Better Initiating Event: Other Current Respiratory Medications: See Home Med List Severity: Mild Pain Scale Rating Of: 2 Associated Symptoms: denies: Fever, Chills, Sweating Reports Recently: Seen In ED, Treated By A Physician, Hospitalized Recent travel outside of the [place]: No Additional History Per: Patient Past Medical History Reviewed: Historical Data, Nursing Documentation, Vital Signs Vital Signs: Last Vital Signs Temp 98.2 F 12/17/18 21:20 Pulse 88 12/17/18 21:20 Resp 20 12/17/18 21:20 BP 157/60 H 12/17/18 21:20 Pulse Ox 97 12/17/18 21:20 - Medical History PMH: Denies: Deep Vein Thrombosis, Chronic Kidney Disease Surgical History: Denies: Pacemaker - [facility] DETOXIFICATION SERVICES FOR SUBSTANCE ABUSE TREATMENT (11/06/18) INJECT/INFUSE NEC (11/14/14) Family History: States: No Known Family Hx - Social History Hx Tobacco Use: Yes Hx Alcohol Use: No Hx Substance Use: Yes (HEROIN, COCAINE) - Immunization History Hx Tetanus Toxoid Vaccination: No Hx Influenza Vaccination: No Hx Pneumococcal Vaccination: No Review Of Systems Constitutional: Negative for: Fever, Chills Eyes: Negative for: Vision Change ENT: Negative for: Throat Pain Cardiovascular: Positive for: Chest Pain Respiratory: Positive for: Shortness of Breath (mild) Gastrointestinal: Negative for: Nausea, Vomiting, Abdominal Pain Genitourinary: Negative for: Dysuria Musculoskeletal: Negative for: Back Pain Skin: Negative for: Rash Neurological: Negative for: Weakness Psych: Negative for: Anxiety Physical Exam - Physical Exam Appears: Non-toxic, No Acute Distress Skin: Warm, Dry Head: Normacephalic Eye(s): bilateral: Normal Inspection Oral Mucosa: Moist Neck: Supple Chest: Symmetrical Cardiovascular: Rhythm Regular Respiratory: No Rales, No Rhonchi, No Wheezing Gastrointestinal/Abdominal: Soft, No Tenderness, No Distention Back: No CVA Tenderness Extremity: Normal ROM Extremity: Bilateral: Atraumatic Neurological/Psych: Oriented x3 Gait: Steady ED Course And Treatment - Laboratory Results Result Diagrams: 12/17/18 23:34 12/17/18 23:34 ECG: Interpreted By Me, Viewed By Me ECG Rhythm: Sinus Rhythm (80), Nonspecific Changes O2 Sat by Pulse Oximetry: 97 Pulse Ox Interpretation: Normal Progress Note: spoke at length about the need to stop doing drugs( heroin /cocaine) but patient does not seem to be interested in the idea. Understands , as I've explained at length , the posibility of recurring endocarditis, permanent disability and even . Reevaluation Time: 03:02 Reassessment Condition: Improved Medical Decision Making Medical Decision Making: Upon provider reevaluation patient is feeling better, is medically stable, and requires no further treatment in the ED at this time. Patient will be discharged home with Rx for zyvox . Counseling was provided and all questions were answered regarding diagnosis and need for follow up with dr ramos. There is agreement to discharge plan. Return if symptoms persist or worsen. Disposition Counseled Patient/Family Regarding: Studies Performed, Diagnosis, Need For Followup, Rx Given - Disposition Referrals: Dorothy Ramos MD [Staff Provider] - Disposition: HOME/ ROUTINE Disposition Time: 22:26 Condition: FAIR Additional Instructions: Please return if symptoms recur. Patient is cleared to return to work Prescriptions: Linezolid [Zyvox] 600 mg PO BID #28 tab Forms: [facility] (Bulgarian), General Discharge Instructions - Clinical Impression Clinical Impression: Encounter for medical assessment
[2018-12-17] MEDS ORDERED: Aspirin 325 mg EC Tablets PO STA (22:38)
[2018-12-17] MEDS ORDERED: Iodixanol 320 mg/ml 150 ml Bottle IV ONE (22:56)
[2018-12-17 23:38] LABS: BASO # 0.1 K/uL (0.0-0.2); BASO % 0.9 % (0.0-2.0); EOS # 0.1 K/uL (0.0-0.7); EOS % 0.8 % (0.0-4.0); HEMOGLOBIN 10.9 g/dL (12.0-18.0); LYMPH # 2.2 K/uL (1.0-4.3); MEAN CELL VOLUME 81.8 fL (80.0-94.0); MEAN CORPUSCULAR HEMOGLOBIN 28.1 pg (27.0-31.0); MEAN CORPUSCULAR HGB CONC 34.3 g/dL (33.0-37.0); MEAN PLATELET VOLUME 8.5 fL (7.2-11.7); MONO # 0.4 K/uL (0.0-0.8); NEUT # 5.9 K/uL (1.8-7.0); NEUT % 68.3 % (50.0-75.0); RBC 3.9 Mil/uL (4.40-5.90); RED CELL DISTRIBUTION WIDTH 16.9 % (11.5-14.5); WHITE BLOOD COUNT 8.7 K/uL (4.8-10.8)
[2018-12-17 23:47] LABS: INR 1.2
[2018-12-18 00:02] LABS: BARBITURATES, UR NEGATIVE (NEGATIVE); BENZODIAZEPINES, UR NEGATIVE (NEGATIVE); PHENCYCLIDINE, UR NEGATIVE (NEGATIVE)
[2018-12-18 00:14] LABS: B-TYPE NATRIURETIC PEPTIDE 1160 pg/mL (0-450)
[2018-12-18 00:25] LABS: OPIATES, UR POSITIVE (NEGATIVE)
[2018-12-18 01:01] LABS: BLOOD UREA NITROGEN 14 mg/dL (9-20); CALCIUM 9.4 mg/dl (8.6-10.4); GFR NON-AFRICAN AMERICAN > 60
[2018-12-18 01:02] LABS: ALB/GLOB RATIO 1.3 (1.0-2.1); ALBUMIN 4.2 g/dL (3.5-5.0)
[2018-12-18 01:03] LABS: ALT/SGPT 8 U/L (21-72); AST/SGOT 18 U/L (17-59)
[2018-12-18 02:53] VITALS: BP 132/71; PULSE 67; RESP 18; TEMP 97.3
[2018-12-18 03:07] VITALS: O2SAT 97
--- NOTE | 2018-12-18 08:35 | CT ---
Date of service: 12/18/2018 PROCEDURE: CT Chest with contrast (Pulmonary Angiogram) HISTORY: Chest pain COMPARISON: None available. TECHNIQUE: Axial computed tomography images were obtained of the chest in the pulmonary arterial phase of enhancement. Coronal and sagittal reformatted images were created and reviewed. Intravenous contrast dose: 100 mL Visipaque 320 Radiation dose: Total exam DLP = 620.92 mGy-cm. This CT exam was performed using one or more of the following dose reduction techniques: Automated exposure control, adjustment of the mA and/or kV according to patient size, and/or use of iterative reconstruction technique. FINDINGS: PULMONARY ARTERIES: There are no filling defects in the pulmonary arteries to suggest acute pulmonary embolism. AORTA: No acute findings. No thoracic aortic aneurysm. No aortic atherosclerotic calcification or mural plaque present. LUNGS: The lungs are well inflated. There is multifocal linear atelectasis in the lungs. There is focal cystic change in the left anterior apex and right upper lobe medially. There is more nodular subsegmental atelectasis in the right lung base. There is mild diffuse bronchial wall thickening. No nodule, mass or pulmonary consolidation. PLEURAL SPACES: No effusion or pneumothorax. HEART: No cardiomegaly. No significant pericardial effusion. LYMPH NODES: No pathologic mediastinal or hilar lymphadenopathy. BONES, CHEST WALL: Within normal limits for the patient's age. No fracture or destructive lesion OTHER FINDINGS: None. IMPRESSION: No CTA evidence for acute pulmonary embolism. Multifocal subsegmental atelectasis in the lungs, diffuse bronchial thickening and scattered cystic changes in the lungs most compatible with bronchitis. No lobar pneumonia.
== END 2018-12-18 03:27 | disposition home or self-care (01) ==
LOC: C.ER 21:17
DX: Z00.00 Encounter for general adult medical examination without abnormal findings (principal); Z72.0 Tobacco use
CPT/HCPCS: 71275; 80053; 80324; 80345; 80346; 80349; 80353; 80358; 80361; 83880; 83992; 84484; 85025; 85610; 85730; 99284; Q9967